=== PATIENT | female | born 1950 | race Caucasian/White ===

== ENCOUNTER 2018-08-15 06:21 | Observation (INO) | payer BC, SELFPAY ==
[2018-08-15] VITALS (11 sets, daily range): BP systolic 109–158; BP diastolic 50–84; PULSE 42–64; RESP 16–18; TEMP 36.6–37.1; O2SAT 95–98; BMI 25.6; BMI 25.2
--- NOTE | 2018-08-15 06:28 | EKG12_ITS ---
Test Reason : CP Blood Pressure : / mmHG Vent. Rate : 067 BPM Atrial Rate : 067 BPM P-R Int : 134 ms QRS Dur : 086 ms QT Int : 446 ms P-R-T Axes : 053 009 071 degrees QTc Int : 471 ms Normal sinus rhythm Cannot rule out Inferior infarct (cited on or before 11-SEP-2016), age undetermined Abnormal ECG Confirmed by JOSE ANGEL JOHNSON, YANDEL ([id number]), editorial assistant MICHAEL CROSS ([id number]) on 08/20/2018 1:23:53 PM Referred By: ZACHERY Confirmed By:YANDEL WALTER MD
--- NOTE | 2018-08-15 06:28 | RAD_ITS ---
STUDY: X-RAY CHEST REASON FOR EXAM: Female, 67 years old. Chest pain TECHNIQUE: AP portable COMPARISON: 09/11/2016 FINDINGS: The patient is status post median sternotomy and CABG. The lungs are clear and expanded. There is no demonstrated pleural abnormality. There is mild cardiac enlargement. Normal mediastinum and lois. Normal visualized pulmonary arteries. Normal visualized aortic arch and descending thoracic aorta. There are diffuse degenerative changes of the visualized thoracic spine. Normal visualized ribs, clavicles, and shoulders. There is no demonstrated abnormality of the visualized soft tissue structures of the upper abdomen. RAD/Chest PA and Lateral IMPRESSION: Negative x-ray examination of the chest. No interval change. Electronically Signed: Sebastien Childers, at 7:06 EDT Tel , Service support ,
--- NOTE | 2018-08-15 06:29 | ED.VIS.GEN ---
History of Present Illness Chief Complaint: Chest Pain Informant: Patient Narrative: Stated that at 9 AM yesterday she started having some discomfort described as a tightness in her chest and also the middle portions of her back. Patient stated that is been continuous. She is tried aspirin and Tylenol with moderate relief of symptoms. She does have history of coronary artery disease status post 2 stents. She also had a CABG remotely. Patient has not had cardiac evaluation in the last 3 years. Her last stress test was in 2016 and was normal. The patient had a heart cath around that time as well in [place] that showed no new blockages. The patient stated over the last couple years she has not had any follow-up and comes in today with the symptoms. - Past Medical History (1) Chest pain Status: Acute (2) Dyslipidemia Status: Chronic (3) Hypothyroidism Status: Chronic (4) Palpitations Status: Chronic (5) S/P CABG (coronary artery bypass graft) Status: Chronic Comment: s/p PCI (6) Tobacco abuse Status: Chronic Past Medical History - Allergies and Home Meds Allergies/Adverse Reactions: Allergies No Known Allergies Allergy (Verified 09/11/16 14:15) Primary Care Physician: Xavier Castillo DO [Primary Care Provider] - Prior records reviewed: Yes Surgical History: cholecystectomy, coronary bypass surgery, - - cabg and 3 stents since then. Smoking Status: Current every day smoker Alcohol: None Drugs: None - Family History Maternal Family History: Reports: Cancer, - - colon Paternal Family History: Reports: - - father with heart disease Sibling Family History: Reports: - - 2 brother with heart disease. Review of Systems General: Denies: Chills, Fever, Sweats Eyes: Denies: Visual changes - bilaterally, Diplopia ENT: Denies: Rhinorrhea, Sore throat Cardiovascular: Reports: Chest pain. Denies: Palpitations Respiratory: Denies: Dyspnea, Cough, Dyspnea on exertion Gastrointestinal: Denies: Abdominal pain, Nausea, Vomiting, Diarrhea, Melena, Hematochezia Genitourinary: Denies: Dysuria, Hematuria, Frequency Musculoskeletal: Reports: Back pain. Denies: Extremity Pain Skin: Denies: Rash, Wounds Neurological: Denies: Headache, Weakness, Numbness Physical Exam Vital Signs/Narrative: Vital Signs Temp Pulse Resp BP Pulse Ox 08/15/18 06:22 97.9 F 64 18 158/84 H 97 General: Well nourished, Well developed, No Acute Distress Head: Normocephalic, Atraumatic Eyes: Perrl, EOMI ENT: Moist mucous membranes, No rhinorrhea Neck: Supple, Nontender Cardiovascular: Regular rate, Regular rhythm, No murmurs Respiratory: No distress, CTA bilaterally, Chest nontender Abdomen: Soft, Nontender, Nondistended, Normal bowel sounds Back: Nontender, Normal Inspection Extremities: Nontender, No edema Skin: Normal color, No rash Neurological: Alert, Oriented x3, Cranial nerves II-XII grossly intact, Normal Strength, Normal Sensation Psychological: Normal affect, Normal Mood Diagnostic/Tx/Re-eval - Medical Decision Making EKG shows normal sinus rhythm at a rate of 67. No acute STEMI or ischemia. She Claudio took aspirin. Lab work and chest x-ray obtained. X-ray unremarkable. Lab work shows no acute abnormalities. Troponin is negative. Patient on reevaluation does not get nitroglycerin because her heart rate was low. Given a dose of morphine. She did consent to come in for further cardiac evaluation. She will likely need a stress test that she not have one in several years. I have a low suspicion for PE or dissection. ED Disposition - Plan for ED Patient: Diagnosis: Chest pain at rest Referrals: Xavier Castillo DO [Primary Care Provider] -
[2018-08-15 06:39] LABS: Absolute Lymphocyte Count 2.37 X10^3/ul (0.83-4.51); Absolute Neutrophil Count 4.6 X10^3/uL (2.0-7.7); Basophil# 0.05 X10^3/uL; Basophil% 0.6 % (0-1); Eosinophil# 0.21 X10^3/uL; Eosinophils% 2.6 % (0-5); Hematocrit 46.1 % (37-47); Hemoglobin 15.8 g/dl (12.0-15.0); Lymphocyte # 2.37 X10^3/ul (4.0); Lymphocyte % 29.9 % (19-41); Mean Corp Hgb Conc 34.3 g/gl (32-36); Mean Corpuscular Hgb 32.2 pg (27.0-32.0); Mean Corpuscular Volume 94.1 fL (81-99); Mean Platelet Vol. 10.6 fl (6.2-12.0); Monocyte# 0.72 X10^3/uL; Monocyte% 9.1 % (0-10); Neutrophil # 4.56 X10^3/uL (2.7-7.7); Neutrophil % 57.5 % (47-70); Platelet Count 318 K/mm3 (150-450); RBC Distribution Width CV 13.4 % (11.6-14.6); RBC Distribution Width SD 44.8 fl (35.1-43.9); White Blood Count 7.9 K/mm3 (4.4-11.0)
[2018-08-15 06:43] LABS: POSITIVE COUNT NO; POSITIVE DIFFERENTIAL NO; POSITIVE MORPHOLOGY NO
--- NOTE | 2018-08-15 06:44 | ED.RN ---
nitro not given, pts hr 54, bp 135/77, notified dr, to hold the nitro. still rating her pain an 8/10
[2018-08-15 07:04] LABS: Anion Gap 6 (5-15); BUN 16 mg/dL (7-18); Calcium,Total 9.6 mg/dL (8.5-10.1); Chloride 108 mmol/L (98-107); Creatinine, Serum 0.84 mg/dL (0.55-1.02); EST Glomerular Filtration Rate 71 mL/min (>60); Est Glom Filt Rate - Afr Amer 86 mL/min (>60); Estimated Creatinine Clearance 58.48 ml/min; Glucose 103 mg/dL (74-106); Potassium 4.3 mmol/L (3.5-5.1); Sodium Level 139 mmol/L (136-145)
[2018-08-15] MEDS: Morphine 2 MG/ML Syringe IV (07:36)
--- NOTE | 2018-08-15 08:04 | HP.PCM_ITS ---
Problem List (1) Chest pain at rest Status: Acute (2) Tobacco abuse Status: Chronic (3) Chest pain Status: Acute (4) Palpitations Status: Chronic (5) Hypothyroidism Status: Chronic (6) Dyslipidemia Status: Chronic (7) S/P CABG (coronary artery bypass graft) Status: Chronic Comment: s/p PCI History of Present Illness Date of Admission: 08/15/18 Chief Complaint: Chest pain The patient is a 67 year old F with history of coronary artery disease status post CABG in 2003 in [place] status post stent of occluded graft 2016 in [facility] for chest pain started yesterday morning. Patient describes chest pain as heaviness like heavy things sitting on the chest started on the interscapular area and went through in the front. Patient denies shortness of breath, palpitation, dizziness, near-syncope or syncope. Patient denies abdominal pain. Last time she was admitted in September 2015 and a stress test was abnormal. She did not want to stay here for cardiac cath therefore she was discharged and went to [facility] for PCI as per her wish. EKG shows normal sinus rhythm at 67 bpm no significant change from August 12, 2016. Echo in September 2012 shows EF 65%, LA mildly enlarged. Trivial MR, 1-2+ TR, RVSP 26 mmHg [] Past Medical History Past Medical History (Chronic Problems): Chronic Problems Tobacco abuse (Chronic) Palpitations (Chronic) Hypothyroidism (Chronic) Dyslipidemia (Chronic) S/P CABG (coronary artery bypass graft) (Chronic) s/p PCI Allergies No Known Allergies Allergy (Verified 09/11/16 14:15) Home Medications: Ambulatory Orders Medication Instructions Recorded Aspirin [Aspirin, Baby] 81 mg PO QHS 07/08/14 Carvedilol [Coreg (Beta Alba)] 6.25 mg PO BID 07/08/14 Levothyroxine [Synthroid] 112 mcg PO DAILY 07/08/14 Atorvastatin Calcium 80 mg PO QHS 08/15/18 Surgical History: cholecystectomy, coronary bypass surgery, - - cabg and 3 stents since then. Smoking Status: Current every day smoker Alcohol: None Drugs: None - *Family History Maternal History Items: Cancer, - - colon Paternal History Items: - - father with heart disease Sibling History Items: - - 2 brother with heart disease. Review of Systems Constitutional: Denies: Chills, Fever, Weight Change HEENT: Denies: Head Aches, Sinus Congestion, Sinus Drainage Cardiovascular: Reports: Chest Pain, Chest Pressure. Denies: Palpitations Respiratory: Denies: Cough, Shortness of breath at rest, Sputum production Gastrointestinal: Denies: Abdominal Pain, Nausea, Vomiting Genitourinary: Denies: Dysuria, Frequency, Hematuria, Hesitancy, Urgency Musculoskeletal: Denies: Joint Pain, Joint Tenderness Skin: Denies: Rash, Wounds Neurological: Denies: Numbness, Tingling, Focal weakness Psychiatric: Denies: Anxiety, Depression, Homicidal Ideations, Suicidal Ideations Hematologic/ Lymphatic: Denies: Easy Bruising, Easy Bleeding VTE Information - Inpt Only VTE Present on Admission: No VTE Mechan Device Prophylaxis: None VTE Pharm Prophylaxis ordered?: Yes Patient Problems: Active and Suspected Problems Chest pain at rest (Acute) - Physical Exam General: Alert, Oriented x3, Cooperative HEENT: Atraumatic, PERRLA, EOMI, Normocephalic Neck: Supple, No JVD, Negative Carotid Bruits Lungs: Clear to auscultation, Normal air movement, No rhonchi, No wheeze, No rales Cardiovascular: Regular rate, Regular Rhythm, Normal S1, Normal S2, No murmurs Abdomen: Bowel Sounds Present, Soft, Non Tender, Non-Distended Extremities: No edema, Capillary Refill Less than 3 Seconds Skin: No rashes, No breakdown Musculoskeletal: No Tenderness to Palpation of Joints or Extremities, Arthritic Changes Lymphatic: No Cervical, Supraclavicular, or Inguinal Adenopathy Neurological: Cranial nerves II-XII grossly intact, Deep Tendon Reflexes 2+/4 and Symmetrical, Neuro grossly intact, Motor Exam 5/5 strength throughout Psych/Mental Status: Normal Affect, Appropriate Vital Signs Temp Pulse Resp BP Pulse Ox 97.9 F 51 L 18 114/65 98 08/15/18 06:22 08/15/18 07:39 08/15/18 07:39 08/15/18 07:39 08/15/18 07:39 Oxygen Flow Rate (L/min) 2 Oxygen Delivery Method Nasal Cannula Weight: 153 lb 14.122 oz Body Mass Index (BMI) 25.6 Laboratory Tests Past 24 Hrs 08/15/18 08/15/18 06:20 06:20 WBC 7.9 RBC 4.90 Hgb 15.8 H Hct 46.1 MCV 94.1 MCH 32.2 H MCHC 34.3 RDW 13.4 RDW Differential 44.8 H Plt Count 318 MPV 10.6 Immature Gran % (Auto) 0.300 Neut % (Auto) 57.5 Lymph % (Auto) 29.9 Cotton % (Auto) 9.1 Eos % (Auto) 2.6 Baso % (Auto) 0.6 Absolute Neuts (auto) 4.6 Absolute Lymphs (auto) 2.37 Total Counted Not Reportable Sodium 139 Potassium 4.3 Chloride 108 H Carbon Dioxide 25.0 Anion Gap 6 BUN 16 Creatinine 0.84 Estim Creat Clear Calc 58.48 Est GFR (MDRD) Af Amer 86 Est GFR (MDRD) Non-Af 71 BUN/Creatinine Ratio 19.0 Glucose 103 Calcium 9.6 Troponin I < 0.015 Assessment/Plan All Active Problems Chest pain at rest (Acute) Chest pain (Acute) The patient is a 67 year old F with history of coronary artery disease status post CABG in 2003 in [place] status post stent of occluded graft 2016 in [facility] for chest pain started yesterday morning. Patient describes chest pain as heaviness like heavy things sitting on the chest started on the interscapular area and went through in the front. Patient denies shortness of breath, palpitation, dizziness, near-syncope or syncope. Patient denies abdominal pain. Last time she was admitted in September 2015 and a stress test was abnormal. She did not want to stay here for cardiac cath therefore she was discharged and went to [facility] for PCI as per her wish. EKG shows normal sinus rhythm at 67 bpm no significant change from August 12, 2016. Chest x-ray shows no acute change. Echo in September 2012 shows EF 65%, LA mildly enlarged. Trivial MR, 1-2+ TR, RVSP 26 mmHg. 1. Atypical change sprain possible unstable angina: Patient is being admitted in PCU. Troponin enzyme is negative. Serial troponin enzymes. Lexiscan nuclear stress test tomorrow morning. Patient still has chest pain in the ER therefore nursing is is told to give sublingual nitro. Patient received morphine 2 mg IV x1. Start on nitro ointment 1% every 6 hourly and discontinue on chest pain is resolves or if patient gets hypotensive or headache. Continue aspirin, Coreg, atorvastatin and other home medications. Fasting provider tomorrow a.m. 2. Coronary artery disease status post CABG in 2003 status post recent stenting 2016: 3. Hypothyroidism: Continue home levothyroxine. TSH and free T4 ordered. Other chronic comorbidities include dyslipidemia, chronic tobacco use: Smoking cessation advised. Due to progress: On Lovenox 40 neurosecretory. Laboratory Results 08/15/18 06:20: WBC 7.9, RBC 4.90, Hgb 15.8 H, Hct 46.1, MCV 94.1, MCH 32.2 H, MCHC 34.3, RDW 13.4, RDW Differential 44.8 H, Plt Count 318, MPV 10.6, Immature Gran % (Auto) 0.300, Neut % (Auto) 57.5, Lymph % (Auto) 29.9, Cotton % (Auto) 9.1, Eos % (Auto) 2.6, Baso % (Auto) 0.6, Absolute Neuts (auto) 4.6, Absolute Lymphs (auto) 2.37, Total Counted Not Reportable 08/15/18 06:20: Sodium 139, Potassium 4.3, Chloride 108 H, Carbon Dioxide 25.0, Anion Gap 6, BUN 16, Creatinine 0.84, Estim Creat Clear Calc 58.48, Est GFR (MDRD) Af Amer 86, Est GFR (MDRD) Non-Af 71, BUN/Creatinine Ratio 19.0, Glucose 103, Calcium 9.6, Troponin I < 0.015 Clinical Impression(s) from Imaging Studies Chest X-Ray 08/15/18 06:28 IMPRESSION: Negative x-ray examination of the chest. No interval change. Code Visit OBSV E&M: 57341 Initial observation care L3
--- NOTE | 2018-08-15 08:23 | EKG12_ITS ---
Test Reason : CP ADMIT Blood Pressure : / mmHG Vent. Rate : 051 BPM Atrial Rate : 051 BPM P-R Int : 148 ms QRS Dur : 092 ms QT Int : 470 ms P-R-T Axes : 034 003 082 degrees QTc Int : 433 ms Sinus bradycardia Possible Inferior infarct , age undetermined Abnormal ECG Confirmed by JOSE ANGEL JOHNSON, YANDEL ([id number]), editor managing newspaper MICHAEL CROSS ([id number]) on 08/20/2018 1:52:49 PM Referred By: NELLY Confirmed By:YANDEL WALTER MD
[2018-08-15 08:53] LABS: Thyroid Stim Hormone (TSH) 6.02 uIU/mL (0.358-3.74)
[2018-08-15] MEDS: 0.9% Normal Saline 1,000 ML 100 ML IV (10:03)
[2018-08-15] MEDS: Aspirin E.C. 325 MG Tablet PO (10:03)
[2018-08-15] MEDS: oxyCODONE 5 MG Tablet PO ×2 (10:04→18:06)
--- NOTE | 2018-08-15 14:37 | STRESSREP ---
Stress Test Report Date: 08/15/2018 Procedure: Pharmacologic stress nuclear imaging study Indications: Chest pain Consent: Per the patient Procedure: The patient underwent pharmacologic (Regadenoson) evaluation with a peak heart rate of 72 beats per minute (47 %predicted maximal heart rate) and a peak blood pressure of 128/60 mmHg. The baseline ECG demonstrated sinus bradycardia. EKG during lexiscan infusion revealed normal sinus rhythm with no significant ST-T changes. EKG post infusion revealed no significant ischemic changes [There were no cardiac dysrhythmias pretest, during pharmacologic infusion, or recovery]. [There was no complaint of chest discomfort during pharmacologic infusion or recovery]. The examination was discontinued secondary to completion of protocol. Impression: 1. Lexiscan stress test test is negative for Lexiscan infusion induced EKG changes of ischemia. 2. Lexiscan stress test test is negative for Lexiscan infusion induced chest pain. 3. Results of the nuclear portion of the test is as below Myocardial perfusion imaging study: Technique: The patient was injected with 11.9 millicuries of technetium 99m Cardiolite and subsequently rest SPECT Cardiolite nuclear imaging was obtained in the horizontal long, vertical long, and short axis views. The patient underwent pharmacologic (Regadenoson) evaluation. Please see above for details. The patient was injected with 33.6 millicuries of technetium 99m Cardiolite and subsequently stress SPECT Cardiolite nuclear imaging was obtained in the horizontal long, vertical long, and short axis views. A gated Cardiolite study at peak stress was obtained. Interpretation: Rest and stress SPECT Cardiolite nuclear imaging status post realignment, normalization, and attenuation correction demonstrate overall normal myocardial radioisotope uptake in the rest and stress images. Gated images reveal no significant regional wall motion abnormalities. The reported LVEF is greater than 70 %. Impression: 1. There is no evidence of significant ischemia or infarction. 2. Estimated ejection fraction is greater than 70%. This note was generated with [employer]arp.ation software. It may contain incorrect words, spelling, and punctuation that were not noted in checking the note before signing.
[2018-08-15] MEDS: Atorvastatin Calcium 80 MG Tablet PO (21:21)
[2018-08-16] MEDS: oxyCODONE 5 MG Tablet PO (02:09)
[2018-08-16 03:00] VITALS: BP 106/52; PULSE 46; PULSE 50; RESP 16; TEMP 36.7; O2SAT 96
[2018-08-16] MEDS: Levothyroxine 112 MCG Tablet PO (05:56)
[2018-08-16 06:56] LABS: Cholesterol 167 mg/dL (200); High Density Lipoprotein 44 mg/dL; Magnesium 2.1 mg/dL (1.6-2.6); Triglycerides 232 mg/dL; Very Low Density Lipoprotein 46 mg/dL (5-40)
[2018-08-16 07:16] VITALS: PULSE 41
[2018-08-16 09:00] VITALS: BP 135/67; PULSE 44; RESP 16; TEMP 36.6; O2SAT 98
--- NOTE | 2018-08-16 09:19 | DCINST_ITS ---
- Discharge Diagnoses Current Active Problems: Current Active and Chronic Problems Chest pain at rest (Acute) You will use the following diet at home:: Cardiac Your food should be the consistency of: Regular Discharge Activity: Return to Normal Activity Weight Bearing Status: Weight bearing as tolerated Call your doctor if you observe: Fever of 101 or Higher, Coldness, Increased Pain, Inability to urinate, Inability to have a bowel movement, Shortness of breath, Dizziness, Swelling in the ankles, Chest pain, Increased palpitations (irregular heartbeat), Calf discomfort Allergies/Adverse Reactions: Allergies No Known Allergies Allergy (Verified 09/11/16 14:15) Medications to take at Discharge Aspirin [Aspirin, Baby] 81 mg PO QHS 07/08/14 Atorvastatin Calcium 80 mg PO QHS 08/15/18 Carvedilol [Coreg (Beta Alba)] 3.125 mg PO BID #0 08/16/18 Levothyroxine [Synthroid] 125 mcg PO DAILY #30 tab 08/16/18 The following prescriptions were given: Levothyroxine [Synthroid] 125 mcg PO DAILY #30 tab Transmission Status: Received by [facility]/pharmacy #[id number] Primary Care Physician: Xavier Castillo DO [Primary Care Provider] - Please follow up with your Primary Care Physician in: in 2 weeks to repeat Thyroid function in 4 weeks Test Results: Test results from this visit will be discussed in further detail at your follow- up appointment, if applicable. Please Follow Up With: Santiago Aguiar MD When: in 4-6 weeks
--- NOTE | 2018-08-16 09:21 | DS.PCM_ITS ---
Discharge Date and Diagnosis Date of Admission: 08/15/18 Date of Discharge: 08/16/18 - Primary Discharge Diagnosis Active and Suspected Problems Chest pain at rest (Acute) - Secondary Discharge Diagnosis Chronic Problems Tobacco abuse (Chronic) Palpitations (Chronic) Hypothyroidism (Chronic) Dyslipidemia (Chronic) S/P CABG (coronary artery bypass graft) (Chronic) s/p PCI Hospital Course and Treatment Summary of Care Provided: [] The patient is a 67 year old F with history of coronary artery disease status post CABG in 2003 in [place] status post stent of occluded graft 2016 in [facility] for chest pain started, day before yesterday. Patient denies shortness of breath, palpitation, dizziness, near-syncope or syncope. EKG shows normal sinus rhythm at 67 bpm no significant change from August 12, 2016. Chest x-ray shows no acute change. Echo in September 2012 shows EF 65%, LA mildly enlarged. Trivial MR, 1-2+ TR, RVSP 26 mmHg. 1. Atypical chest pain, possible muscle strain; acute coronary syndrome ruled out: Patient was admitted on PCU. Serial troponin enzymes negative. Lexiscan extra stress test was negative for acute ischemia. Patient chest pain resolved. Fasting profile shows triglyceride 232, LDL 77, HDL 44. The patient is on atorvastatin 80 mg daily at bedtime. 2. Coronary artery disease status post CABG in 2003 status post recent stenting 2016: Home medications continued. On baby aspirin, carvedilol and atorvastatin. 3. Sinus bradycardia probably secondary to hypothyroidism: Patient heart rate was in 40s. Coreg decreased to 3.125 mg. This probably secondary to hypothyroidism as TSH was found high. 4. Hypothyroidism: TSH was high 6.02, free T4 1.3. Patient was on 112 mcg levothyroxine which is increased to 125 mcg thyroxine. Other chronic comorbidities include dyslipidemia, chronic tobacco use: Smoking cessation advised. Discharge medication reconciliation done. Discharge follow-up instructions completed. Discharge process discussed with the patient and all questions were answered to patient's satisfaction. Prescription for levothyroxine 125 mcg daily was sent to patient's pharmacy. Result of thyroid test, labs, stress test were discussed with the patient. Total time spent, exact 35 minutes on discharge meds reconciliation, examination, review of imaging and blood test and discussion with the patient on follow-up instructions. Laboratory Results 08/16/18 05:25: Magnesium 2.1, Triglycerides 232 H, Cholesterol 167, LDL Cholesterol 77, VLDL Cholesterol 46 H, HDL Cholesterol 44 - Physical Exam Vital Signs Temp Pulse Resp BP Pulse Ox 98 F 44 L 16 135/67 H 98 08/16/18 09:00 08/16/18 09:00 08/16/18 09:00 08/16/18 09:00 08/16/18 09:00 Oxygen Flow Rate (L/min) 2 Oxygen Delivery Method Room Air Weight: 151 lb 14.376 oz Body Mass Index (BMI) 25.2 Intake and Output for Last 24 Hours 08/14/18 08/15/18 08/16/18 23:59 23:59 23:59 Intake Total 240 / 240 120 / 120 Balance 240 / 240 120 / 120 Laboratory Tests Past 24 Hrs 08/15/18 08/15/18 08/16/18 09:44 12:45 05:25 Magnesium 2.1 Troponin I < 0.015 < 0.015 Triglycerides 232 H Cholesterol 167 LDL Cholesterol 77 VLDL Cholesterol 46 H HDL Cholesterol 44 Discharge Activity: Return to Normal Activity Weight Bearing Status: Weight bearing as tolerated Call your doctor if you observe: Fever of 101 or Higher, Coldness, Increased Pain, Inability to urinate, Inability to have a bowel movement, Shortness of breath, Dizziness, Swelling in the ankles, Chest pain, Increased palpitations (irregular heartbeat), Calf discomfort Home Medications: Medications to take at Discharge Aspirin [Aspirin, Baby] 81 mg PO QHS 07/08/14 Atorvastatin Calcium 80 mg PO QHS 08/15/18 Carvedilol [Coreg (Beta Alba)] 3.125 mg PO BID #0 08/16/18 Levothyroxine [Synthroid] 125 mcg PO DAILY #30 tab 08/16/18 Following Prescrptions Were Given to Patient: Levothyroxine [Synthroid] 125 mcg PO DAILY #30 tab Transmission Status: Received by [facility]/pharmacy #[id number] Primary Care Physician: Xavier Castillo DO [Primary Care Provider] - Please follow up with your Primary Care Physician in: in 2 weeks to repeat Thyroid function in 4 weeks Please Follow Up With: Santiago Aguiar MD When: in 4-6 weeks Medical Necessity - Tobacco Use Smoking Status: Current every day smoker Meaningful Use Info Meaningful Use Diagnoses (Choose all that apply): None applicable Code Visit OBSV E&M: 68265 Observation care discharge
[2018-08-16] MEDS: Levothyroxine 25 MCG TABLET PO (10:38)
== END 2018-08-16 09:20 | disposition home or self-care (01) ==
LOC: ED 07:14 → PCU 07:31
PROVIDERS: Admitting Provider Internal Medicine; Emergency Provider Emergency Medicine; Family Provider Preventive Medicine Occupational Medicine; PCP Preventive Medicine Occupational Medicine; Visit Provider Internal Medicine
DX: R07.89 Other chest pain (principal); I25.10 Atherosclerotic heart disease of native coronary artery without angina pectoris; Z95.1 Presence of aortocoronary bypass graft; E78.5 Hyperlipidemia, unspecified; E03.9 Hypothyroidism, unspecified; R00.2 Palpitations; Z79.82 Long term (current) use of aspirin; Z79.899 Other long term (current) drug therapy; F17.210 Nicotine dependence, cigarettes, uncomplicated
CPT/HCPCS: 36415; 71046; 78452; 80048; 80061; 83735; 84439; 84443; 84484; 85025; 93005; 93017; 96361; 96374; 99218; 99285; 99406; A9500; J7030; A4216; G0378; J2785

== ENCOUNTER 2022-03-30 21:06 | Emergency (ER) | payer BC, SELFPAY ==
[2022-03-30 21:07] VITALS: BP 143/10; PULSE 64; RESP 16; TEMP 36.6; O2SAT 100; BMI 25.1
--- NOTE | 2022-03-30 21:30 | RAD_ITS ---
EXAM: XR CHEST, 1 VIEW CLINICAL INDICATION: chest pain TECHNIQUE: Frontal view of the chest. This report was created using [employer] report generation technology. COMPARISON: 08/15/2018 FINDINGS: LUNGS AND PLEURAL SPACES: Unremarkable. No consolidation or edema. No pneumothorax. No effusion. HEART: See below. MEDIASTINUM: Central airways and mediastinal contour are unremarkable. BONES/JOINTS: There are median sternotomy wires present and clips from a CABG. SOFT TISSUES: Unremarkable. RAD/Chest 1 View (Portable) IMPRESSION: No acute findings in the chest. Electronically Signed: Zane Hensley MD at 22:07 EST ,
[2022-03-30] MEDS: Aspirin 81 MG TAB.CHEW 324 MG PO (22:21)
[2022-03-30 22:29] LABS: Absolute Lymphocyte Count 1.93 X10^3/uL (0.83-4.51); Absolute Neutrophil Count 6.3 X10^3/uL (2.0-7.7); Basophil% 1.1 % (0-1); Eosinophil# 0.19 X10^3/uL; Eosinophils% 2.1 % (0-5); Hemoglobin 14.2 g/dL (12.0-15.0); Lymphocyte # 1.93 X10^3/ul (0.83-4.51); Lymphocyte % 20.9 % (19-41); Mean Corp Hgb Conc 33.8 g/dL (32-36); Mean Corpuscular Hgb 32.3 pg (27.0-32.0); Mean Corpuscular Volume 95.7 fL (81-99); Monocyte# 0.68 X10^3/uL; Monocyte% 7.4 % (0-10); NRBC Flagged by Analyzer 0 % (0-5); Neutrophil # 6.28 X10^3/uL (2.7-7.7); Neutrophil % 68.1 % (47-70); Platelet Count 324 K/mm3 (150-450); RBC Distribution Width SD 45.3 fl (35.1-43.9); Red Blood Count 4.39 M/mm3 (4.2-5.4); White Blood Count 9.2 K/mm3 (4.4-11.0)
[2022-03-30 22:44] LABS: Prothrombin Time (Protime)PT. 12.9 SECONDS (11.7-14.9)
[2022-03-30 22:46] LABS: Anion Gap 5 (5-15); BUN 19 mg/dL (7-18); Calcium,Total 9.3 mg/dL (8.5-10.1); Chloride 112 mmol/L (98-107); EST Glomerular Filtration Rate 87 mL/min (>60); Est Glom Filt Rate - Afr Amer 105 mL/min (>60); Estimated Creatinine Clearance 46.43 ml/min; Glucose 101 mg/dL (74-106); Potassium 4.1 mmol/L (3.5-5.1); Sodium Level 141 mmol/L (136-145); Troponin-I HS 7 pg/mL (3.0-54.0)
--- NOTE | 2022-03-30 23:08 | EDS_ITS ---
HPI History of Present Illness Chief Complaint: Chest Pain Informant: patient Onset/Context/Timing Onset: Today and Hours (2) Activity at onset: sudden Timing: Continuous Quality: Positive for Pressure Location: Left Chest Worsened By: Nothing Relieved By: Nothing Associated Symptoms: Negative for Nausea, Vomiting, Diaphoresis, Dyspnea, Cough, Fever, Lightheadedness, Acid Reflux or Palpitations Narrative Narrative: Patient with chest pain that began approximate 2 hours prior to arrival. Patient describes her pain as a pressure. Patient states it is over the left side of her chest. Patient states nothing makes it better nothing makes it worse. Patient denies any nausea or vomiting. Patient denies any diaphoresis. Patient denies any shortness of breath or cough. Patient denies any lightheadedness or dizziness. Patient denies any palpitations. Patient was a smoker. Patient has a history of coronary artery disease. CVD Risk Factors: Positive for Family History 1' </=55 and Smoking PE Risk Factors: Negative for Recent Travel/Surgery, Recent Immobilization, Prior DVT or PE, Cancer or OCP + Smoking + >/=35 PFSH PFSH Home Medications aspirin 81 mg chewable tablet 81 mg PO QHS heart health 07/08/14 [History Last Taken 09/25/15] atorvastatin 80 mg tablet 80 mg PO QHS cholesterol 08/15/18 [History Last Taken Unknown] carvedilol 6.25 mg tablet 3.125 mg PO BID ##0 08/16/18 [Rx Last Taken 09/25/15] levothyroxine 125 mcg tablet 125 mcg PO DAILY #30 tabs 08/16/18 [Rx Last Taken Unknown] clopidogrel 75 mg tablet 75 mg PO DAILY 03/30/22 [History Last Taken Unknown] isosorbide mononitrate 30 mg tablet,extended release 24 hr 30 mg PO DAILY 03/30/22 [History Last Taken Unknown] Allergy/AdvReac Type Severity Reaction Status Date / Time No Known Allergies Allergy Verified 03/30/22 21:11 Surgical History History of cardiac radiofrequency ablation History of heart artery stent Hx of CABG Social History Smoking Status: Current every day smoker tobacco type: cigarettes ROS ROS ED Constitutional Constitutional ED: Denies chills or fever(s) Eyes Eyes: Denies blurry vision or change in vision ENT ENT ED: Denies rhinorrhea or sore throat Cardiovascular Cardiovascular: Reports chest pain; Denies palpitations Respiratory/Chest Respiratory/Chest: Reports dyspnea; Denies cough Gastrointestinal Gastrointestinal: Reports nausea; Denies abdominal pain or vomiting Genitourinary Genitourinary ED: Denies dysuria or hematuria Musculoskeletal Musculoskeletal: Reports back pain and neck pain Integumentary Denies abscess or rash Neurologic Neurologic: Reports headache(s); Denies weakness Allergic/Immunologic Allergic/Immunologic ED: Denies mouth swelling or urticaria EXAM Physical Exam Const Vital Signs: 03/30/22 21:07 03/30/22 22:11 03/30/22 22:22 Temperature 98 F Temperature Source Oral Pulse Rate 64 Respiratory Rate 16 Respiratory Effort Normal Non-Labored Blood Pressure 143/10 H Blood Pressure Mean 54 Pulse Ox 100 Oxygen Delivery Method Room Air Room Air Positive well nourished and well developed General Appearance ED: well developed and NAD HEENT normocephalic and atraumatic Eyes PERRL and EOMs intact bilaterally Neck supple and no JVD Chest Wall palpation of chest normal Resp normal respiratory effort and clear to auscultation bilaterally Effort and Inspection: Negative for respiratory distress Cardio regular rate, regular rhythm and no murmurs GI normal to inspection, nondistended, normoactive bowel sounds, soft to palpation, non-tender and non-distended Extremity normal to inspection General Extremety ED: Negative for edema or tenderness General Extremity: Negative for edema Neuro oriented x3, CN's II-XII intact bilaterally and no sensory deficits noted Sensorium / Orientation: awake and alert Motor Exam: strength 5/5 throughout Psych mental status grossly normal Heart Score History: Slightly/Non-Suspicious ECG: Nonspecific Repolarization Age: >/= 65 years Risk Factors: >/= 3 Risk Factors or History of CAD Troponin: </= Normal Limit Score: 5 MDM MDM MDM Narrative Medical decision making narrative: Differential diagnosis includes cardiac ischemia, cardiac dysrhythmia, pneumonia, pneumothorax, musculoskeletal chest pain, COPD, and congestive heart failure. Other than the patient's age, patient is PERC negative. I do not feel a D-dimer is necessary at this time. EKG will be obtained to assess for cardiac dysrhythmia and cardiac ischemia. Chest x-ray will be obtained to assess for pneumonia, pneumothorax, and congestive heart failure. CBC will be obtained to assess for leukocytosis and anemia. PT was INR be obtained to assess for coagulopathy. Basic metabolic profile will be obtained to assess for renal function and electrolyte abnormality. High-sensitivity troponin will be obtained to assess for cardiac ischemia. Since the patient's symptoms only started 2 hours prior to arrival, 82-hour repeat high-sensitivity troponin will be obtained to assess for ongoing cardiac ischemia. Lab Data Attestation: I reviewed the patient's lab results. Lab results narrative: CBC was reviewed and was within normal limits. PT was INR was reviewed and was within normal limits. Basic metabolic profile was reviewed and was within normal limits. Initial high-sensitivity troponin was reviewed and was normal at 7. 2-hour repeat high-sensitivity troponin was also normal at 7. Labs: Laboratory Results - last 24 hr 03/30/22 03/30/22 03/30/22 22:17 22:17 22:17 WBC 9.2 RBC 4.39 Hgb 14.2 Hct 42.0 MCV 95.7 MCH 32.3 H MCHC 33.8 RDW Std Deviation 45.3 H RDW Coeff of Angela 13.0 Plt Count 324 MPV 10.0 Immature Gran % (Auto) 0.400 Neut % (Auto) 68.1 Lymph % (Auto) 20.9 Alfalfa % (Auto) 7.4 Eos % (Auto) 2.1 Baso % (Auto) 1.1 H Absolute Neuts (auto) 6.3 Absolute Lymphs (auto) 1.93 Nucleated RBC % 0 PT 12.9 INR 1.0 Sodium 141 Potassium 4.1 Chloride 112 H Carbon Dioxide 24.0 Anion Gap 5 BUN 19 H Creatinine 0.70 Estim Creat Clear Calc 46.43 Est GFR (MDRD) Af Amer 105 Est GFR (MDRD) Non-Af 87 BUN/Creatinine Ratio 27.0 H Glucose 101 Calcium 9.3 Troponin I High Sens 7 03/31/22 00:19 WBC RBC Hgb Hct MCV MCH MCHC RDW Std Deviation RDW Coeff of Angela Plt Count MPV Immature Gran % (Auto) Neut % (Auto) Lymph % (Auto) Alfalfa % (Auto) Eos % (Auto) Baso % (Auto) Absolute Neuts (auto) Absolute Lymphs (auto) Nucleated RBC % PT INR Sodium Potassium Chloride Carbon Dioxide Anion Gap BUN Creatinine Estim Creat Clear Calc Est GFR (MDRD) Af Amer Est GFR (MDRD) Non-Af BUN/Creatinine Ratio Glucose Calcium Troponin I High Sens 7 Radiography Chest X-Ray - ED: 1 View, Read by ED Physician, Read by Radiologist and No Acute Disease Diagnostic Testing: Clinical Impression(s) from Imaging Studies Chest X-Ray 03/30/22 21:30 IMPRESSION: No acute findings in the chest. Electronically Signed: Zane Hensley MD at 22:07 EST , Portable 1 view chest x-ray was obtained. On my independent interpretation, lung bear are clear. There is normal cardiac silhouette. Bony thorax is normal. There is no acute process noted. Radiologist also interpreted the x- ray and agrees. EKG Initial EKG: Attestation: I personally reviewed and interpreted this EKG as follows: Interpretation: Sinus Rhythm (60) and Non-Specific ST Changes Prior EKG tracings: available for review Prior: Unchanged (08/15/2018) Treatment and Re-Evaluation Narrative: Patient was given aspirin here. Patient was also given a dose of morphine for her neck and back pain. Patient is feeling better on reevaluation. Patient has a HEART score of 5. This is mainly due to the patient's age and history of coronary artery disease along with nonspecific ST-T wave changes on her EKG. Patient's history is not suggestive of coronary artery disease. Patient states her last stress test was a stress echocardiogram 6 months ago and she states that that was normal. Patient had 2 normal high-sensitivity troponins. I feel the patient can be safely discharged home. Patient was instructed to follow-up with her primary care physician and psychologist private practice in 5 to 7 days. Patient was instructed return if worse in any way. Patient understood and was agreeable with the plan. All questions were answered. Discharge Plan Triage Chief Complaint: Chest Pain ED Provider: Gregor Boss Dx/Rx/DC Orders Clinical Impression: Chest pain, Tobacco abuse Instructions: ED Chest Pain, Uncertain Cause Prescriptions: No Action aspirin 81 MG tablet,chewable 81 mg PO QHS atorvastatin 80 MG tablet 80 mg PO QHS levothyroxine 125 MCG tablet 125 mcg PO DAILY Qty: 30 0RF carvedilol 6.25 MG tablet 3.125 mg PO BID Qty: 0 0RF Rx Instructions: Hold if heart rate is less than 60/min isosorbide mononitrate 30 mg tablet extended release 24 hr 30 mg PO DAILY Label Comments: TAKE 1 TABLET BY MOUTH EVERY MORNING clopidogrel 75 mg tablet 75 mg PO DAILY Label Comments: TAKE 1 TABLET BY MOUTH EVERY DAY Primary Care Provider: Xavier Castillo Referrals: Xavier Castillo DO [Primary Care Provider] - 5-7 Days Disposition Disposition: Home, Self Care
[2022-03-31 00:31] VITALS: BP 113/73; RESP 12; O2SAT 98
[2022-03-31 00:42] LABS: Troponin-I HS (w/2H Reflex) 7 pg/mL (3.0-54.0)
[2022-03-31] MEDS: Morphine 4 MG/ML Syringe IV (00:46)
[2022-03-31] MEDS: Ondansetron 4 MG/2 ML Vial IV (00:46)
[2022-03-31 01:01] VITALS: BP 125/55; PULSE 49; RESP 13; O2SAT 96
[2022-03-31 02:23] LABS: Reflex Troponin-HS? (from REC) Y
== END 2022-03-31 01:30 | disposition home or self-care (01) ==
PROVIDERS: Emergency Provider Emergency Medicine; PCP Preventive Medicine Occupational Medicine; Visit Provider Emergency Medicine
DX: R07.9 Chest pain, unspecified (principal); I25.10 Atherosclerotic heart disease of native coronary artery without angina pectoris; F17.210 Nicotine dependence, cigarettes, uncomplicated
CPT/HCPCS: 71045; 80048; 84484; 85025; 85610; 93005; 96374; 96375; 99284; A4216; J2405

== ENCOUNTER 2022-07-02 11:56 | Emergency (ER) | payer BC, SELFPAY ==
[2022-07-02 11:57] VITALS: BP 112/61; PULSE 51; RESP 16; TEMP 36.6; O2SAT 99; BMI 25.6
--- NOTE | 2022-07-02 12:11 | EX.ED.DYSGE1 ---
HPI <TRISTON Nazario - Last Filed: 07/02/22 14:06> History of Present Illness Chief Complaint: Dizziness Narrative Narrative: Patient is a 71-year-old female with history of CAD, CABG, tobacco use, cholesterol who presents to the emergency department with 1 week of worsening dizziness. Patient states the dizziness is worse when she is walking and active. When she is sitting resting, she is asymptomatic. She denies any chest pain or shortness of breath. [facility], she discussed her symptoms, they referred her here for more cardiac work-up. Patient states she does have a cough however is no more than usual. Patient denies any other illnesses. Last echocardiogram was 2 to 3 months ago and was normal. Last stress test in our system was in 2019 which was normal. PFSH <TRISTON Nazario - Last Filed: 07/02/22 14:06> [facility] Medical History (Updated 07/02/22 @ 14:06 by TRISTON Nazario) DVT (deep venous thrombosis) Home Medications aspirin 81 mg chewable tablet 81 mg PO QHS heart health 07/08/14 [History Last Taken 09/25/15] atorvastatin 80 mg tablet 80 mg PO QHS cholesterol 08/15/18 [History Last Taken Unknown] carvedilol 6.25 mg tablet 3.125 mg PO BID ##0 08/16/18 [Rx Last Taken 09/25/15] levothyroxine 125 mcg tablet 125 mcg PO DAILY #30 tabs 08/16/18 [Rx Last Taken Unknown] clopidogrel 75 mg tablet 75 mg PO DAILY 03/30/22 [History Last Taken Unknown] isosorbide mononitrate 30 mg tablet,extended release 24 hr 30 mg PO DAILY 03/30/22 [History Last Taken Unknown] Allergy/AdvReac Type Severity Reaction Status Date / Time No Known Allergies Allergy Verified 07/02/22 11:58 Surgical History (Updated 07/02/22 @ 12:11 by Evette Romero) H/O: hysterectomy History of cardiac radiofrequency ablation History of coronary rotational ablation History of heart artery stent Hx of CABG S/P cholecystectomy Social History Smoking Status: Current every day smoker tobacco type: cigarettes ROS <TRISTON Nazario - Last Filed: 07/02/22 14:06> ROS ED ROS Narrative Constitutional: Negative for fever, chills, weight loss, weakness Eyes: Negative for vision loss, vision change, double vision ENT: Negative for any sore throat, ear pain, congestion Cardiovascular: Negative for any chest pain, tightness, palpitations Respiratory: Negative for any cough, sputum production, hemoptysis, dyspnea, dyspnea on exertion, orthopnea Gastrointestinal: Negative for any abdominal pain, nausea, vomiting, diarrhea, constipation, blood in stool, blood in vomit : Negative for any urinary frequency, dysuria, retention, blood in urine Muscle skeletal: Negative for any muscle joint pain, stiffness, myalgias, arthralgias, neck pain, back pain Neurological: Negative for any headache, syncope, numbness or tingling. Positive with dizziness on exertion Skin: Negative for any rashes, lumps, itching, abrasions, lacerations Psychiatric: Negative for any depression, anxiety, stress, suicidal ideation, homicidal ideation Hematologic: Negative for any easy bruising, excessive bruising, easy bleeding Allergies: Negative for any eczema, hives, rash EXAM <TRISTON Nazario - Last Filed: 07/02/22 14:06> Physical Exam Narrative Exam Narrative: Vital signs reviewed. HEET: Head normocephalic atraumatic, TMs clear bilaterally. Posterior pharynx is clear, moist mucous membranes. Nares clear bilaterally. Neck: Supple with no lymphadenopathy or tenderness. No signs of meningismus, negative jolt sign. Cardiac: Bradycardic rhythm no murmurs gallops or rubs, equal peripheral pulses bilaterally. Respiratory: Lungs clear to auscultation bilaterally diminished in the bases. No chest tenderness. Abdomen: Soft, nontender, nondistended. No abdominal bruit or pulsatile masses. No hepatosplenomegaly Extremities: No peripheral edema, no signs of gross trauma or deformity. Active full range of motion of all extremities. Neuro: Cranial nerves II through XII intact, no focal neurological deficits. Skin: Clean dry and intact with no rash, purpura, petechiae, vesicles or pustules. Backs/flank: No CVA tenderness, no midline spinal tenderness, no deformity. Psych: Normal mood and affect. No SI, HI or acute psychosis. Const Vital Signs: 07/02/22 11:57 07/02/22 12:12 07/02/22 12:13 Temperature 97.8 F Temperature Source Temporal Pulse Rate 51 L Pulse Rate [Lying] 55 L Pulse Rate [Sitting (for 1 minute prior to obtaining)] 54 L Pulse Rate [Standing (for 1 minute prior to obtaining)] 59 L Respiratory Rate 16 Respiratory Effort Normal Non-Labored Blood Pressure 112/61 Blood Pressure [Lying] 133/69 H Blood Pressure [Sitting (for 1 minute prior to obtaining)] 148/119 H Blood Pressure [Standing (for 1 minute prior to obtaining)] 116/65 Blood Pressure Mean 78 Blood Pressure Mean [Lying] 90 Blood Pressure Mean [Sitting (for 1 minute prior to obtaining)] 128 Blood Pressure Mean [Standing (for 1 minute prior to obtaining)] 82 Pulse Ox 99 Oxygen Delivery Method Room Air 07/02/22 13:35 Temperature Temperature Source Pulse Rate 53 L Pulse Rate [Lying] Pulse Rate [Sitting (for 1 minute prior to obtaining)] Pulse Rate [Standing (for 1 minute prior to obtaining)] Respiratory Rate 16 Respiratory Effort Blood Pressure 116/46 L Blood Pressure [Lying] Blood Pressure [Sitting (for 1 minute prior to obtaining)] Blood Pressure [Standing (for 1 minute prior to obtaining)] Blood Pressure Mean 69 Blood Pressure Mean [Lying] Blood Pressure Mean [Sitting (for 1 minute prior to obtaining)] Blood Pressure Mean [Standing (for 1 minute prior to obtaining)] Pulse Ox 98 Oxygen Delivery Method Room Air Positive well nourished and well developed General Appearance ED: well developed <Dr. Cristino Levy, DO - Last Filed: 07/02/22 15:57> Physical Exam Const Vital Signs: 07/02/22 11:57 07/02/22 12:12 07/02/22 12:13 Temperature 97.8 F Temperature Source Temporal Pulse Rate 51 L Pulse Rate [Lying] 55 L Pulse Rate [Sitting (for 1 minute prior to obtaining)] 54 L Pulse Rate [Standing (for 1 minute prior to obtaining)] 59 L Respiratory Rate 16 Respiratory Effort Normal Non-Labored Blood Pressure 112/61 Blood Pressure [Lying] 133/69 H Blood Pressure [Sitting (for 1 minute prior to obtaining)] 148/119 H Blood Pressure [Standing (for 1 minute prior to obtaining)] 116/65 Blood Pressure Mean 78 Blood Pressure Mean [Lying] 90 Blood Pressure Mean [Sitting (for 1 minute prior to obtaining)] 128 Blood Pressure Mean [Standing (for 1 minute prior to obtaining)] 82 Pulse Ox 99 Oxygen Delivery Method Room Air 07/02/22 13:35 Temperature Temperature Source Pulse Rate 53 L Pulse Rate [Lying] Pulse Rate [Sitting (for 1 minute prior to obtaining)] Pulse Rate [Standing (for 1 minute prior to obtaining)] Respiratory Rate 16 Respiratory Effort Blood Pressure 116/46 L Blood Pressure [Lying] Blood Pressure [Sitting (for 1 minute prior to obtaining)] Blood Pressure [Standing (for 1 minute prior to obtaining)] Blood Pressure Mean 69 Blood Pressure Mean [Lying] Blood Pressure Mean [Sitting (for 1 minute prior to obtaining)] Blood Pressure Mean [Standing (for 1 minute prior to obtaining)] Pulse Ox 98 Oxygen Delivery Method Room Air YASSINE <TRISTON Nazario - Last Filed: 07/02/22 14:06> [facility] Lab Data Labs: Laboratory Results - last 24 hr 07/02/22 07/02/22 07/02/22 12:04 12:04 13:35 WBC 8.0 RBC 4.80 Hgb 15.2 H Hct 45.9 MCV 95.6 MCH 31.7 MCHC 33.1 RDW Std Deviation 48.3 H RDW Coeff of Angela 13.6 Plt Count 298 MPV 10.7 Immature Gran % (Auto) 0.400 Neut % (Auto) 60.3 Lymph % (Auto) 27.0 Isabela % (Auto) 8.6 Eos % (Auto) 2.6 Baso % (Auto) 1.1 H Absolute Neuts (auto) 4.8 Absolute Lymphs (auto) 2.16 Nucleated RBC % 0 Sodium 141 Potassium 4.1 Chloride 106 Carbon Dioxide 28.0 Anion Gap 7 BUN 21 H Creatinine 0.74 Estim Creat Clear Calc 46.43 Est GFR (MDRD) Af Amer 100 Est GFR (MDRD) Non-Af 83 BUN/Creatinine Ratio 28.6 H Glucose 164 H Calcium 9.6 Troponin I High Sens 7 Urine Color Yellow Urine Clarity Clear Urine pH 6.0 Ur Specific [place] 1.010 Urine Protein Negative Urine Glucose (UA) Normal Urine Ketones Negative Urine Occult Blood Negative Urine Nitrite Negative Urine Bilirubin Negative Urine Urobilinogen Normal Ur Leukocyte Esterase Negative Urine RBC 0 SEEN Urine WBC 0 SEEN Ur Squamous Epith Cells 0 SEEN Urine Bacteria 0 SEEN Urine Mucus 0 SEEN Radiography Diagnostic Testing: Clinical Impression(s) from Imaging Studies Chest X-Ray 07/02/22 12:25 IMPRESSION: 1. No acute findings in the chest. 2. No interval change when compared to 03/30/2022. Electronically Signed: Mckay Cooper MD at 13:47 EDT Reading Location ID and State: [id number] [facility] , Service support , EKG Sinus bradycardia: Attestation: I personally reviewed and interpreted this EKG as follows: Interpretation: Sinus Bradycardia Comments: Sinus bradycardia with a QRS interval 78 ms, CT interval 156 ms, no acute ST elevation, no acute infarct noted. Treatment and Re-Evaluation :: All radiologic examinations were read, reviewed by the emergency department attending. From these reads, a plan of care will be put in place. Patient appears well, patient appears nontoxic, vital signs are stable. Patient presents to the emergency department with complaints of dizziness worse with ambulation. Patient did receive a full cardiac work-up. Patient CBC was unremarkable, chemistries were unremarkable, and were negative. EKG was unremarkable, no evidence of ACS, SC. Patient's urinalysis was negative for any infection. Chest x-ray was unremarkable. Patient was slightly orthostatic hypotensive, patient did receive 1 L of IV fluids. Upon looking at the patient's medications, patient recently got a dose increase from her carvedilol from 3.125 twice a day to 6.125. At this time, I believe that this could be the reason why she is more dizzy with ambulation and sitting up. I spoke with Dr. Carver cardiology, he thinks it is appropriate to cut this dose in half. Patient will take 3.125 twice a day if she continues to have problems can take 3.25 once a day. I spoke with the patient, the patient's they verbally understand. They understand the need to follow-up with cardiology. All questions answered. Patient stable for discharge. <Dr. Cristino Levy, DO - Last Filed: 07/02/22 15:57> [facility] Narrative Medical decision making narrative: Patient appears well, patient appears nontoxic, vital signs are stable. Patient presents to the emergency department with complaints of dizziness worse with ambulation. Patient did receive a full cardiac work-up. Patient CBC was unremarkable, chemistries were unremarkable, and were negative. EKG was unremarkable, no evidence of ACS, SC. Patient's urinalysis was negative for any infection. Chest x-ray was unremarkable. Patient was slightly orthostatic hypotensive, patient did receive 1 L of IV fluids. Upon looking at the patient's medications, patient recently got a dose increase from her carvedilol from 3.125 twice a day to 6.125. At this time, I believe that this could be the reason why she is more dizzy with ambulation and sitting up. I spoke with Dr. Carver cardiology, he thinks it is appropriate to cut this dose in half. Patient will take 3.125 twice a day if she continues to have problems can take 3.25 once a day. I spoke with the patient, the patient's they verbally understand. They understand the need to follow-up with cardiology. All questions answered. Patient stable for discharge. This patient was seen with a PA/ETHANOL MAINTENANCE MECHANIC Individually assessed they patient including history and physical. I have reviewed everything on the chart that is available and agree with the documentation provided by the PA/ETHANOL MAINTENANCE MECHANIC including discussion about the assessment, treatment plan, discussion, and return precautions. Well-appearing 71-year-old female with orthostatic hypotension. She does tell me that her dose of carvedilol was doubled a few months ago. Her amlodipine is stayed the same at 5 mg. Patient orthostatic in the ER however lab work is normal. Suspect this is due to medication. Treatment plan as above. Lab Data Attestation: I reviewed the patient's lab results. Labs: Laboratory Results - last 24 hr 07/02/22 07/02/22 07/02/22 12:04 12:04 13:35 WBC 8.0 RBC 4.80 Hgb 15.2 H Hct 45.9 MCV 95.6 MCH 31.7 MCHC 33.1 RDW Std Deviation 48.3 H RDW Coeff of Angela 13.6 Plt Count 298 MPV 10.7 Immature Gran % (Auto) 0.400 Neut % (Auto) 60.3 Lymph % (Auto) 27.0 Isabela % (Auto) 8.6 Eos % (Auto) 2.6 Baso % (Auto) 1.1 H Absolute Neuts (auto) 4.8 Absolute Lymphs (auto) 2.16 Nucleated RBC % 0 Sodium 141 Potassium 4.1 Chloride 106 Carbon Dioxide 28.0 Anion Gap 7 BUN 21 H Creatinine 0.74 Estim Creat Clear Calc 46.43 Est GFR (MDRD) Af Amer 100 Est GFR (MDRD) Non-Af 83 BUN/Creatinine Ratio 28.6 H Glucose 164 H Calcium 9.6 Troponin I High Sens 7 Urine Color Yellow Urine Clarity Clear Urine pH 6.0 Ur Specific [place] 1.010 Urine Protein Negative Urine Glucose (UA) Normal Urine Ketones Negative Urine Occult Blood Negative Urine Nitrite Negative Urine Bilirubin Negative Urine Urobilinogen Normal Ur Leukocyte Esterase Negative Urine RBC 0 SEEN Urine WBC 0 SEEN Ur Squamous Epith Cells 0 SEEN Urine Bacteria 0 SEEN Urine Mucus 0 SEEN Radiography Diagnostic Testing: Clinical Impression(s) from Imaging Studies Chest X-Ray 07/02/22 12:25 IMPRESSION: 1. No acute findings in the chest. 2. No interval change when compared to 03/30/2022. Electronically Signed: Mckay Cooper MD at 13:47 EDT Reading Location ID and State: [address] [place] [address] , Service support , All radiologic examinations were read, reviewed by the emergency department attending. From these reads, a plan of care will be put in place. Discharge Plan Triage Chief Complaint: Dizziness ED Midlevel Provider: Yuniel Rea ED Provider: Cristino Levy Dx/Rx/DC Orders Clinical Impression: Drug-induced hypotension Instructions: Hypotension Dc, ED Low Blood Pressure, All Causes Prescriptions: No Action aspirin 81 MG tablet,chewable 81 mg PO QHS atorvastatin 80 MG tablet 80 mg PO QHS levothyroxine 125 MCG tablet 125 mcg PO DAILY Qty: 30 0RF carvedilol 6.25 MG tablet 3.125 mg PO BID Qty: 0 0RF Rx Instructions: Hold if heart rate is less than 60/min isosorbide mononitrate 30 mg tablet extended release 24 hr 30 mg PO DAILY Label Comments: TAKE 1 TABLET BY MOUTH EVERY MORNING clopidogrel 75 mg tablet 75 mg PO DAILY Label Comments: TAKE 1 TABLET BY MOUTH EVERY DAY Primary Care Provider: Xavier Castillo Referrals: Xavier Castillo DO [Primary Care Provider] - Activity Restrictions/Additional Instructions: You need to follow-up with your reclamation kettle tender. You will cut your carvedilol in half and take that twice a day. If you continue to feel dizzy, just take half of carvedilol once daily. Ensure you follow-up with cardiology Disposition Disposition: Home, Self Care Discharge Date/Time: 07/02/22 14:27
[2022-07-02 12:12] VITALS: BP 116/65; BP 133/69; BP 148/119; PULSE 54; PULSE 55; PULSE 59
[2022-07-02] MEDS: 0.9% Normal Saline 1,000 ML 1000 ML IV (12:20)
--- NOTE | 2022-07-02 12:22 | EKG12_ITS ---
Test Reason : WEAKNESS Blood Pressure : / mmHG Vent. Rate : 048 BPM Atrial Rate : 048 BPM P-R Int : 156 ms QRS Dur : 096 ms QT Int : 474 ms P-R-T Axes : 032 003 089 degrees QTc Int : 423 ms Sinus bradycardia Cannot rule out Inferior infarct , age undetermined Abnormal ECG Confirmed by ELIZABETH JOHNSON, LUCIO ([id number]), make up editor MICHAEL CROSS ([id number]) on 07/04/2022 11:13:52 AM Referred By: Confirmed By:LUCIO JOHNSON MD
--- NOTE | 2022-07-02 12:25 | RAD_ITS ---
EXAM: XR CHEST, 2 VIEWS CLINICAL INDICATION: Cough. TECHNIQUE: Frontal and lateral views of the chest. COMPARISON: 03/30/2022. FINDINGS: LUNGS AND PLEURAL SPACES: Small calcified granuloma in the left upper lobe is unchanged. Mild pulmonary hyperinflation suggestive of mild COPD. No pneumothorax. No effusion. No suspicious infiltrates. HEART: Mild cardiomegaly is unchanged. Intact sternal wires and multiple surgical clips from CABG procedure. They are unchanged. MEDIASTINUM: Central airways and mediastinal contour are unremarkable. BONES/JOINTS: Unremarkable. SOFT TISSUES: Unremarkable. RAD/Chest PA and Lateral IMPRESSION: 1. No acute findings in the chest. 2. No interval change when compared to 03/30/2022. Electronically Signed: Mckay Cooper MD at 13:47 EDT ,
[2022-07-02 12:28] LABS: Absolute Lymphocyte Count 2.16 X10^3/uL (0.83-4.51); Absolute Neutrophil Count 4.8 X10^3/uL (2.0-7.7); Basophil# 0.09 X10^3/uL; Basophil% 1.1 % (0-1); Eosinophil# 0.21 X10^3/uL; Eosinophils% 2.6 % (0-5); Hematocrit 45.9 % (37-47); Hemoglobin 15.2 g/dL (12.0-15.0); Lymphocyte # 2.16 X10^3/ul (0.83-4.51); Mean Corp Hgb Conc 33.1 g/dL (32-36); Mean Corpuscular Hgb 31.7 pg (27.0-32.0); Mean Corpuscular Volume 95.6 fL (81-99); Mean Platelet Vol. 10.7 fl (6.2-12.0); Monocyte# 0.69 X10^3/uL; Monocyte% 8.6 % (0-10); NRBC Flagged by Analyzer 0 % (0-5); Neutrophil # 4.83 X10^3/uL (2.7-7.7); Neutrophil % 60.3 % (47-70); Platelet Count 298 K/mm3 (150-450); RBC Distribution Width CV 13.6 % (11.6-14.6); RBC Distribution Width SD 48.3 fl (35.1-43.9)
[2022-07-02 12:44] LABS: Anion Gap 7 (5-15); BUN 21 mg/dL (7-18); BUN/Creat Ratio 28.6 RATIO (10-20); Calcium,Total 9.6 mg/dL (8.5-10.1); Chloride 106 mmol/L (98-107); Creatinine, Serum 0.74 mg/dL (0.55-1.02); EST Glomerular Filtration Rate 83 mL/min (>60); Est Glom Filt Rate - Afr Amer 100 mL/min (>60); Estimated Creatinine Clearance 46.43 ml/min; Glucose 164 mg/dL (74-106); Potassium 4.1 mmol/L (3.5-5.1); Sodium Level 141 mmol/L (136-145); Troponin-I HS 7 pg/mL (3.0-54.0)
[2022-07-02 13:35] VITALS: BP 116/46; PULSE 53; RESP 16; O2SAT 98
[2022-07-02 13:43] LABS: Bacteria 0 SEEN /hpf (None Seen); Mucous, Urine 0 SEEN /hpf (<or=2+); Red Blood Cells-Urine 0 SEEN /hpf (0-5); Squamous Epithelial Cells - UA 0 SEEN /hpf (5-10); White Blood Cells 0 SEEN /hpf (0-5)
[2022-07-02 13:46] LABS: Color, Urine Yellow (Yellow); Glucose, Dipstick Normal (Normal); Ketone-Dipstick Negative (Negative); Leukocyte Esterase-Dipstick Negative /ul (Negative); Nitrite-Dipstick Negative (Negative); Occult Blood-Urine Negative /ul (Negative); Protein-Dipstick Negative (Negative); Urine Bilirubin Dipstick Negative (Negative); Urine Clarity Clear (Clear); Urine Urobilinogen Normal (Normal)
== END 2022-07-02 14:27 | disposition home or self-care (01) ==
PROVIDERS: Nurse Practitioner; Emergency Provider Student in an Organized Health Care Education/Training Program; PCP Preventive Medicine Occupational Medicine; Visit Provider Student in an Organized Health Care Education/Training Program
DX: I95.2 Hypotension due to drugs (principal); T44.7X5A Adverse effect of beta-adrenoreceptor antagonists, initial encounter; I25.10 Atherosclerotic heart disease of native coronary artery without angina pectoris; F17.210 Nicotine dependence, cigarettes, uncomplicated
CPT/HCPCS: 71046; 80048; 81001; 84484; 85025; 93005; 96360; 99284; J7030; A4216

== ENCOUNTER 2023-01-06 13:19 | Emergency (ER) | payer BC, SELFPAY ==
[2023-01-06 13:20] VITALS: BP 118/76; PULSE 80; RESP 18; TEMP 36.1; O2SAT 97; BMI 24.6
--- NOTE | 2023-01-06 13:35 | CT_ITS ---
STUDY: CTA HEAD AND NECK WITH CONTRAST REASON FOR EXAM: Female, 72 years old. left headache, neck pain, vertigo RADIATION DOSAGE (If Supplied By Facility): CTDIvol = ( 31.74 ) mGy, DLP = ( 1457.63 ) mGycm TECHNIQUE: CT angiography was performed with a multi-detector CT scanner. Data acquisition was obtained from the skull base through the vertex following intravenous administration of IV 100mL [id number]-370. MIP images were reconstructed from the axial data set. Post-processing of the angiographic images was performed, with multiplanar reformation and 3D reconstruction. Individualized dose optimization techniques were used for this CT. COMPARISON: No relevant priors. FINDINGS: Normal bilateral petrous carotid arteries. Normal right cavernous carotid artery with a normal supraclinoid bifurcation. Normal left cavernous carotid artery with a normal supraclinoid bifurcation. Normal right A1 segments of the anterior cerebral artery. Normal left A1 segments of the anterior cerebral artery. Normal intact anterior communicating artery (ACOM). Normal bilateral A2 segments of the anterior cerebral arteries. Normal right M1 and M2 segments of the middle cerebral arteries, with a normal M1 bifurcation. Normal left M1 and M2 segments of the middle cerebral arteries, with a normal M1 bifurcation. Normal right posterior communicating artery (PCOM). Normal left posterior communicating artery (PCOM). Normal bilateral vertebral arteries. Normal basilar artery with a normal basilar bifurcation. The visualized bilateral superior cerebellar (SCA) arteries are normal. Normal bilateral P1, P2 and visualized P3 segments of the posterior cerebral arteries. There is no demonstrated aneurysm of the [place] of Sr. There is no demonstrated abnormality of the visualized brain. AORTIC ARCH: Normal visualized aortic arch. Normal origins of the brachiocephalic, left common carotid, and left subclavian arteries. RIGHT CAROTID ARTERIES: Normal right common carotid artery (CCA). Normal right common carotid bulb. There is moderate calcified atherosclerotic plaque formation of the origin of the right internal carotid artery with less than 50% cross sectional diameter stenosis. Stenosis measured at approximately 40% Normal visualized cervical portion of the right internal carotid artery. Normal origin of the right external carotid artery (ECA). LEFT CAROTID ARTERIES: Normal left common carotid artery (CCA). Normal left common carotid bulb. Normal origin of the left internal carotid (ICA) artery without a hemodynamically significant stenosis. Normal visualized cervical portion of the left internal carotid artery. Normal origin of the left external carotid artery (ECA). VERTEBRAL ARTERIES: There is enhancement within the bilateral vertebral arteries with a small right vertebral artery, and a dominant left vertebral artery. No airway narrowing or deviation, no suspicious enhancing lesion. No bulky adenopathy, bony structures show degenerative change CT/CTA Head AND Neck W/ Contrast IMPRESSION: No vaso-occlusive disease or significant stenosis within the intracranial circulation No aneurysm or vascular malformation Moderate calcified plaque in the proximal right ICA but no significant stenosis, stenosis estimated at 40% No significant stenosis in the left ICA Small right vertebral artery along its entire course Electronically Signed: Freddy Gallagher MD at 14:54 EST ,
--- NOTE | 2023-01-06 13:40 | EX.ED.DYSGE1 ---
HPI History of Present Illness Chief Complaint: Dizziness Informant: patient Onset/Context/Timing Onset: Weeks (2.5) Context: Sudden Onset Timing: Continuous Current Severity: Severe Maximum Severity: Severe Narrative Narrative: Patient has peripheral arterial disease in her legs, and about 2.5 weeks ago she had balloon angioplasty of pre-existing stents in her groins. She states she has been having no issues with her legs ever since. However, the night of surgery she started having severe headache left occipital and down into the left posterior neck along with vertiginous symptoms. She states specifically, when she woke up from surgery the symptoms were not there, they started later. The symptoms have been there ever since. States she saw her PCP, she was diagnosed with occipital neuralgia, prescribed carbamazepine, and referred to neurology with whom she has not seen yet. She states the symptoms are worsening and nothing is better. She denies any vision changes, nausea, vomiting, peripheral neurologic symptoms in arms or legs. She states getting up and walking makes her feel vertiginous, and turning her head also triggers and reproduces the symptoms, but the pain has been severe, it is not intermittent, and it seems to be worse when she moves her head. She has had no loss of consciousness. [facility] Medical History (Updated 01/06/23 @ 15:[address] MD) CAD (coronary artery disease) DVT (deep venous thrombosis) Dyslipidemia Hypothyroidism PAD (peripheral artery disease) Home Medications aspirin 81 mg chewable tablet 81 mg PO QHS heart health 07/08/14 [History Last Taken 09/25/15] atorvastatin 80 mg tablet 80 mg PO QHS cholesterol 08/15/18 [History Last Taken Unknown] carvedilol 6.25 mg tablet 3.125 mg (1/2 x 6.25 mg) PO BID ##0 08/16/18 [Rx Last Taken 09/25/15] levothyroxine 125 mcg tablet 125 mcg PO DAILY #30 tabs 08/16/18 [Rx Last Taken Unknown] clopidogrel 75 mg tablet 75 mg PO DAILY 03/30/22 [History Last Taken Unknown] isosorbide mononitrate 30 mg tablet,extended release 24 hr 30 mg PO DAILY 03/30/22 [History Last Taken Unknown] meclizine 25 mg tablet 25 mg PO Q8H PRN PRN Dizziness #20 tabs 01/06/23 [Rx Last Taken Unknown] metoclopramide HCl 10 mg tablet (Reglan) 10 mg PO Q6H PRN nausea or headache #15 tabs 01/06/23 [Rx Last Taken Unknown] orphenadrine citrate 100 mg tablet,extended release 100 mg PO Q12H PRN muscle pain #12 tabs 01/06/23 [Rx Last Taken Unknown] tramadol 50 mg tablet 50 mg PO PRN 01/06/23 [History Last Taken Unknown] Allergy/AdvReac Type Severity Reaction Status Date / Time No Known Allergies Allergy Verified 01/06/23 13:22 Surgical History (Updated 01/06/23 @ 14:[address] MD) H/O: hysterectomy History of cardiac radiofrequency ablation History of coronary rotational ablation History of heart artery stent Hx of CABG S/P CABG (coronary artery bypass graft) S/P cholecystectomy Social History Smoking Status: Current every day smoker tobacco type: cigarettes ROS ROS ED Constitutional Constitutional ED: Denies chills or fever(s) Eyes Eyes: Denies change in vision or diplopia ENT ENT ED: Reports neck pain and vertigo; Denies hearing loss, rhinorrhea, sore throat or tinnitus Cardiovascular Cardiovascular: Denies chest pain or palpitations Respiratory/Chest Respiratory/Chest: Denies cough or dyspnea Gastrointestinal Gastrointestinal: Denies abdominal pain, diarrhea, nausea or vomiting Genitourinary Genitourinary ED: Denies dysuria or hematuria Musculoskeletal Musculoskeletal: Reports neck pain; Denies back pain Integumentary Denies abscess or rash Neurologic Neurologic: Reports headache(s) and vertigo; Denies paresthesias or weakness Psychiatric Psychiatric: Denies anxiety or suicidal thoughts EXAM Physical Exam Const Vital Signs: 01/06/23 13:20 Temperature 97 F L Temperature Source Temporal Pulse Rate 80 Respiratory Rate 18 Blood Pressure 118/76 Blood Pressure Mean 90 Pulse Ox 97 Positive well nourished and well developed General Appearance ED: well developed and NAD HEENT Reports TM's clear and moist mucous membranes HEENT Narrative: Tender throughout the left occipital scalp but not superficially, with palpation of the actual cranium in this area. Normal on inspection no palpable hematomas, masses. normocephalic and atraumatic Tympanic Membrane ED: Yes TM's clear Eyes PERRL and EOMs intact bilaterally Neck full ROM and supple Neck Narrative: No audible carotid bruit. No sternocleidomastoid tenderness. No mastoid process tenderness or periauricular lymphadenopathy. Tender left posterior neck paraspinal musculature, and more laterally in the posterior neck. No palpable lymphadenopathy. Resp normal respiratory effort and clear to auscultation bilaterally Cardio regular rate, regular rhythm and no murmurs GI non-tender and non-distended Auscultation: normoactive bowel sounds Palpation: soft Back/Spine no CVA tenderness General Back: other FROM Extremity normal to inspection General Extremety ED: Negative for edema, pulses abnormal or tenderness General Extremity: Negative for edema or pulses abnormal Neuro oriented x3, CN's II-XII intact bilaterally and no sensory deficits noted Neuro Narrative: Normal [id number] and [id number] bilaterally Sensorium / Orientation: awake and alert Motor Exam: strength 5/5 throughout Psych mental status grossly normal Skin no rashes or lesions noted and no wounds MDM MDM MDM Narrative Medical decision making narrative: Seems patient's head and neck pain have a musculoskeletal component, but she is also having vertigo seems more peripheral. There does not seem to be an obvious link between the 2 of these and she states this started the same time. Given this I thought it was appropriate to obtain CT angiography of the head and neck in order to rule out a vascular etiology, subarachnoid hemorrhage, and mass. I reviewed the images and the report, basically negative for anything acute, there is some arterial disease seen in the right internal carotid artery that is noncritical. Meanwhile patient was treated with meclizine morphine and prophylactic Zofran. As I discussed with the patient primary headache syndrome is in the differential here, oftentimes can be triggered by muscular neck pain. That may be going on here. Supportive care advised will offer her prescriptions, and follow-up as scheduled as well as with her PCP. On reevaluation, the morphine did not help much with her pain but the meclizine helped with her vertigo. Will give her Reglan and Norflex prior to discharge as well as prescriptions for those 2 as well as meclizine. Lab Data Attestation: I reviewed the patient's lab results. Labs: Laboratory Results - last 24 hr 01/06/23 13:46 WBC 8.0 RBC 4.64 Hgb 14.6 Hct 42.6 MCV 91.8 MCH 31.5 MCHC 34.3 RDW Std Deviation 45.0 H RDW Coeff of Angela 13.2 Plt Count 296 MPV 9.8 Immature Gran % (Auto) 0.400 Neut % (Auto) 65.5 Lymph % (Auto) 25.2 Luna % (Auto) 6.0 Eos % (Auto) 2.0 Baso % (Auto) 0.9 Absolute Neuts (auto) 5.2 Absolute Lymphs (auto) 2.01 Nucleated RBC % 0 Sodium 136 Potassium 4.0 Chloride 107 Carbon Dioxide 23.0 Anion Gap 6 BUN 16 Creatinine 0.90 Estim Creat Clear Calc 50.84 Est GFR (MDRD) Af Amer 79 Est GFR (MDRD) Non-Af 66 BUN/Creatinine Ratio 17.8 Glucose 104 Calcium 9.3 Radiography Diagnostic Testing: Clinical Impression(s) from Imaging Studies Head/Neck CTA 01/06/23 13:35 IMPRESSION: No vaso-occlusive disease or significant stenosis within the intracranial circulation No aneurysm or vascular malformation Moderate calcified plaque in the proximal right ICA but no significant stenosis, stenosis estimated at 40% No significant stenosis in the left ICA Small right vertebral artery along its entire course Electronically Signed: Freddy Gallagher MD at 14:54 EST Reading Location ID and State: [facility] / [place] , Service support , Discharge Plan Triage Chief Complaint: Dizziness ED Provider: Sagar St Dx/Rx/DC Orders Clinical Impression: Neck pain on left side, Cephalgia, Vertigo, peripheral Instructions: Understanding Headache Pain, ED Vertigo, Unspecified Prescriptions: New metoclopramide HCl [Reglan] 10 mg tablet 10 mg PO Q6H PRN (Reason: nausea or headache) Qty: 15 0RF orphenadrine citrate 100 mg tablet extended release 100 mg PO Q12H PRN (Reason: muscle pain) Qty: 12 0RF meclizine [meclizine] 25 mg tablet 25 mg PO Q8H PRN PRN (Reason: Dizziness) Qty: 20 0RF No Action aspirin 81 MG tablet,chewable 81 mg PO QHS atorvastatin 80 MG tablet 80 mg PO QHS levothyroxine 125 MCG tablet 125 mcg PO DAILY Qty: 30 0RF carvedilol 6.25 MG tablet 3.125 mg PO BID Qty: 0 0RF Rx Instructions: Hold if heart rate is less than 60/min isosorbide mononitrate 30 mg tablet extended release 24 hr 30 mg PO DAILY Patient Comments: TAKE 1 TABLET BY MOUTH EVERY MORNING clopidogrel 75 mg tablet 75 mg PO DAILY Patient Comments: TAKE 1 TABLET BY MOUTH EVERY DAY tramadol 50 mg tablet 50 mg PO PRN Primary Care Provider: Xavier Castillo Referrals: Xavier Castillo DO [Primary Care Provider] - 1 Week if not improving (and w/ neurology as previously referred) Disposition Disposition: Home, Self Care
[2023-01-06] MEDS: Meclizine HCl 25 MG Tablet PO (13:46)
[2023-01-06] MEDS: 0.9% Normal Saline (500mL Bag) 500 ML 999 ML IV (13:46)
[2023-01-06] MEDS: Morphine 4 MG/ML Syringe IV (13:48)
[2023-01-06] MEDS: Ondansetron 4 MG/2 ML Vial IV (13:48)
[2023-01-06 13:53] LABS: Absolute Lymphocyte Count 2.01 X10^3/uL (0.83-4.51); Absolute Neutrophil Count 5.2 X10^3/uL (2.0-7.7); Basophil# 0.07 X10^3/uL; Basophil% 0.9 % (0-1); Eosinophil# 0.16 X10^3/uL; Hematocrit 42.6 % (37-47); Hemoglobin 14.6 g/dL (12.0-15.0); Lymphocyte # 2.01 X10^3/ul (0.83-4.51); Lymphocyte % 25.2 % (19-41); Mean Corp Hgb Conc 34.3 g/dL (32-36); Mean Corpuscular Hgb 31.5 pg (27.0-32.0); Mean Corpuscular Volume 91.8 fL (81-99); Mean Platelet Vol. 9.8 fl (6.2-12.0); Monocyte# 0.48 X10^3/uL; NRBC Flagged by Analyzer 0 % (0-5); Neutrophil # 5.24 X10^3/uL (2.7-7.7); Neutrophil % 65.5 % (47-70); Platelet Count 296 K/mm3 (150-450); RBC Distribution Width CV 13.2 % (11.6-14.6); Red Blood Count 4.64 M/mm3 (4.2-5.4)
[2023-01-06 14:09] LABS: Anion Gap 6 (5-15); BUN 16 mg/dL (7-18); BUN/Creat Ratio 17.8 RATIO (10-20); Calcium,Total 9.3 mg/dL (8.5-10.1); Chloride 107 mmol/L (98-107); EST Glomerular Filtration Rate 66 mL/min (>60); Est Glom Filt Rate - Afr Amer 79 mL/min (>60); Estimated Creatinine Clearance 50.84 ml/min; Glucose 104 mg/dL (74-106); Sodium Level 136 mmol/L (136-145)
[2023-01-06] MEDS: Orphenadrine 60 MG/2 ML Ampul IV (15:14)
[2023-01-06] MEDS: Metoclopramide 10 MG/2 ML Vial 5 MG IV (15:14)
[2023-01-06 15:36] VITALS: BP 138/78; PULSE 66; RESP 18
== END 2023-01-06 15:45 | disposition home or self-care (01) ==
PROVIDERS: Emergency Provider Emergency Medicine; PCP Preventive Medicine Occupational Medicine; Visit Provider Emergency Medicine
DX: M54.2 Cervicalgia (principal); I73.9 Peripheral vascular disease, unspecified; H81.399 Other peripheral vertigo, unspecified ear; E78.5 Hyperlipidemia, unspecified; R51.9 Headache, unspecified; I25.10 Atherosclerotic heart disease of native coronary artery without angina pectoris; F17.210 Nicotine dependence, cigarettes, uncomplicated; Z79.82 Long term (current) use of aspirin; Z79.02 Long term (current) use of antithrombotics/antiplatelets; Z79.899 Other long term (current) drug therapy
CPT/HCPCS: 70496; 70498; 80048; 85025; 96374; 96375; 99282; J7030; Q9967; A4216; J2405

== ENCOUNTER → 2024-10-16 | Outpatient (CLI) | payer BC, SELFPAY ==
--- OUTSIDE RECORDS SUMMARY | 2024-10-16 06:51 | XMS RPT_ITS | CCD ---
Author Organization [facility] Care Team Providers Care Shorer Name Role Phone TRACEY CASTILLO DO Primary Care Physician ([phone] DAMIAN ESCOBAR MD Attending Unavailable TRACEY CASTILLO DO Primary Care Unavailable TRACEY CASTILLO DO Primary Care Unavailable TRACEY CASTILLO DO Attending Unavailable DAMIAN ESCOBAR MD Attending Unavailable TRACEY CASTILLO DO Primary Care Unavailable TRACEY CASTILLO DO Attending Unavailable TRACEY CASTILLO DO Primary Care Unavailable TRACEY CASTILLO DO Attending Unavailable TRACEY CASTILLO DO Primary Care Unavailable Tea Goode NP Referring Unavailable Tea Goode NP Attending Unavailable Mary Espinosa Primary Care Unavailable Medications Current Medications Medication Drug Class(es) Dates Sig (Normalized) Sig (Original) amLODIPine 5 mg oral tablet (5 sources) Dihydropyridine Calcium Channel Alba Start: 08-31-2021 amLODIPine 5 mg oral tablet Dose : 5 mg = 1 tab(s), Oral, qDay, # 90 tab(s), 3 Refill(s), Pharmacy: [facility]/pharmacy #[id number], 162, cm, 08/31/21 14:05:00 EDT, Height, kg, 08/31/21 14:05:00 EDT, Dosing Weight Start Date: 08/31/21 Status: Ordered Start: 07-15-2020 amLODIPine 5 m g oral tablet Dose : 5 mg = 1 tab(s), Oral, qDay, # 90 tab(s), 3 Refill(s), Pharmacy: [facility]/pharmacy #[id number], 161, cm, 07/15/20 14:21:00 EDT, Height, kg, 07/15/20 14:21:00 EDT, Dosing Weight Start Date: 07/15/20 Status: Ordered aspirin 81 mg delayed release oral tablet (11 sources) Platelet Aggregation Inhibitor, Nonsteroidal Anti-inflammatory Drug Start: 08-20-2018 aspirin 81 mg ora l delayed release tablet Dose : 81 mg = 1 tab(s), Oral, qDay, # 30 tab(s), 0 Refill(s) Start Date: 08/20/18 Status: Ordered Quantity: 30.0 Unit: tab(s) Repeat number: 1 Start: 08-20-2018 aspirin 81 mg oral delayed release tablet Dose : 81 mg = 1 tab(s), Oral, qDay, # 30 tab(s), 0 Refill(s) Start Date: 08/20/18 Status: Ordered Start: 07-08-2014 take 81 mg by mouth at bedtime Aspirin Active 81 MG PO AT BEDTIME July 07, 2014 11:00pm atorvastatin 80 mg oral tablet (11 sources) HMG-CoA Reductase Inhibitor Start: 02-01-2024 take 1 tablet by mouth once daily atorvastatin 80 mg oral tablet See Instructions, TAKE 1 TABLET EVERY DAY, # 90 tab(s), 3 Refill(s), Pharmacy: [facility]/pharmacy #[id number], 160, cm, 01/03/24 12:29:00 EST, Height, kg, 01/03/24 12:29:00 EST, Dosing Weight Start Date: 02/01/24 Status: Ordered Quantity: 90.0 Unit: tab(s) Repeat number: 4 Start: 08-15-2018 take 80 mg by mouth at bedtime Atorvastatin Active 80 MG PO AT BEDTIME August 14, 2018 11:00pm carvedilol 3.125 mg oral tablet (11 sources) alpha-Adrenergic Alba, beta-Adrenergic Alba Start: 08-29-2022 carvedilol 3.125 mg oral tablet Dose : 3.125 mg = 1 tab(s), Oral, BID, Replaces previous prescription for carvedilol 6.25 mg, # 180 tab(s), 1 Refill(s), Pharmacy: [facility]/pharmacy #[id number], 160, cm, 08/29/22 12:58:00 EDT, Height Start Date: 08/29/22 Status: Ordered Start: 12-30-2020 End: 09-16-2022 carvedilol 6.25 mg oral tabl et Dose : 6.25 mg = 1 tab(s), Oral, BID, # 180 tab(s), 3 Refill(s), Pharmacy: [facility]/pharmacy #[id number], 162, cm, 09/21/21 9:24:00 EDT, Height, kg, 09/21/21 9:24:00 EDT, Dosing Weight Start Date: 09/21/21 Stop Date: 09/16/22 Status: Ordered Start: 08-16-2018 take 3.125 mg by ezequiel th twice daily Carvedilol Active 3.125 MG PO TWICE A DAY 0 August 16, 2018 8:18am Hold if heart rate is less than 60/min Start: 07-08-2014 End: 08-16-2018 take 6.25 mg by mouth twice daily Carvedilol Discontinued 6.25 MG PO TWICE A DAY July 07, 2014 11:00pm August 16, 2018 8:18am clopidogrel 75 mg oral tablet (8 sources) [id number] Platelet Inhibitor Start: 05-23-2023 clopidogrel 75 mg or al tablet Dose : 75 mg = 1 tab(s), Oral, Daily, 0 Refill(s) Start Date: 05/23/23 Status: Ordered Repeat number: 1 Start: 03-30-2022 take 75 mg by mouth once daily Clopidogrel Active 75 MG PO DAILY March 30, 2022 12:00am Start: 03-16-2021 clopidogrel 75 mg oral tablet Dose : 75 mg = 1 tab(s), Oral, qDay, # 30 tab(s), 0 Refill(s) Start Date: 03/16/21 Status: Ordered cyclobenzaprine hydrochloride 10 mg oral tablet (2 sources) Muscle Relaxant Start: 06-03-2024 End: 07-13-2024 cyclobenzaprine 10 mg oral tablet Dose : 10 mg = 1 tab(s), Oral, TID, PRN for spasm, # 60 tab(s), 1 Refill(s), Pharmacy: [facility]/pharmacy #[id number], DDD (degenerative disc disease), lumbar, 162, cm, 06/03/24 13:52:00 EDT, Height, kg, 06/03/24 13:52:00 EDT, Dosing Weight Start Date: 06/03/24 Stop Date: 07/13/24 Status: Ordered Quantity: 60.0 Unit: tab(s) Repeat number: 2 Indications: Other intervertebral disc degeneration, lumbar region; Start: 02-01-2024 cyclobenzaprin e 10 mg oral tablet Dose : 10 mg = 1 tab(s), Oral, TID, PRN for spasm, # 15 tab(s), 2 Refill(s), Pharmacy: [facility]/pharmacy #[id number], DDD (degenerative disc disease), lumbar, 160, cm, 01/03/24 12:29:00 EST, Height, kg, 01/03/24 12:29:00 EST, Dosing Weight Start Date: 02/01/24 Status: Ordered Quantity: 15.0 Unit: tab(s) Repeat number: 3 Indication: Other intervertebral disc degeneration, lumbar region diclofenac sodium 75 mg delayed release oral tablet (1 source) Nonsteroidal Anti-inflammatory Drug Start: 06-10-2024 diclofenac sodium 75 mg oral delayed release tablet Dose : 75 mg = 1 tab(s), Oral, BID, with food, # 60 tab(s), 0 Refill(s), [id number], Right knee pain, 162, cm, 06/10/24 13:37:00 EDT, Height, kg, 06/10/24 13:37:00 EDT, Dosing Weight Start Date: 06/10/24 Status: Ordered Quantity: 60.0 Unit: tab(s) Repeat number: 1 Indications: Pain in right knee; 24 hr isosorbide mononitrate 30 mg extended release oral tablet (5 sources) Nitrate Vasodilator Start: 03-30-2022 take 30 mg by mouth once daily Isosorbide Mononitrate Active 30 MG PO DAILY March 30, 2022 12:00am Start: 10-14-2021 take 1 tablet by ezequiel th once daily in the morning isosorbide mononitrate 30 mg oral tablet, extended release 1 tab(s), Oral, qAM, # 30 tab(s), 2 Refill(s), Pharmacy: [facility] ST[id number], 162, cm, 09/21/21 9:24:00 EDT, Height, kg, 09/21/21 9:24:00 EDT, Dosing Weight Start Date: 10/14/21 Status: Ordered levothyroxine sodium 0.112 mg oral tablet (13 sources) l-Thyroxine Start: 02-14-2023 End: 03-26-2025 levothyroxine 112 mcg (0.112 mg) oral tablet Dose : 112 mcg = 1 tab(s), Oral, qDay, # 90 tab(s), 3 Refill(s), Pharmacy: [facility]/pharmacy #[id number], 160, cm, 01/03/24 12:29:00 EST, Height, kg, 01/03/24 12:29:00 EST, Dosing Weight Start Date: 02/20/24 Stop Date: 03/26/25 Status: Ordered Quantity: 90.0 Unit: tab(s) Repeat number: 4 Start: 02-01-2022 levothyroxine 112 mcg (0.112 mg) oral tablet Dose : 112 mcg = 1 tab(s), Oral, qDay, # 90 tab(s), 3 Refill(s), Pharmacy: [facility]/pharmacy #[id number], 162, cm, 11/02/21 14:23:00 EDT, Height, kg, 11/02/21 14:23:00 EDT, Dosing Weight Start Date: 02/01/22 Status: Ordered Start: 08-31-2021 levothyroxine 112 mcg (0.112 mg) oral tablet Dose : 112 mcg = 1 tab(s), Oral, qDay, pt needs appt, # 90 tab(s), 0 Refill(s), Pharmacy: [facility]/pharmacy #[id number], 162, cm, 08/31/21 14:05:00 EDT, Height, kg, 08/31/21 14:05:00 EDT, Dosing Weight Start Date: 08/31/21 Status: Ordered Start: 01-13-2021 levothyroxine 112 mcg (0.112 mg) oral tablet Dose : 112 mcg = 1 tab(s), Oral, qDay, # 90 tab(s), 0 Refill(s), Pharmacy: [facility]/pharmacy #[id number], 165.1, cm, 08/11/20 8:53:00 EDT, Height, kg, 08/11/20 8:53:00 EDT, Dosing Weight Start Date: 01/13/21 Status: Ordered Start: 08-16-2018 take 125 ug by mouth once daily Levothyroxine Active 125 MCG PO DAILY August 15, 2018 11:00pm Start: 07-08-2014 End: 08-16-2018 take 112 ug by mouth once daily Levothyroxine Discontinued 112 MCG PO DAILY July 07, 2014 11:00pm August 16, 2018 8:17am losartan potassium 50 mg oral tablet (2 sources) Angiotensin 2 Receptor Alba Start: 10-25-2022 losartan 50 mg oral tablet Dose : 50 mg = 1 tab(s), Oral, qDay, # 90 tab(s), 3 Refill(s), [id number], Essential hypertension, 165, cm, 10/12/22 9:06:00 EDT, Height, kg, 10/12/22 9:06:00 EDT, Dosing Weight Start Date: 10/25/22 Status: Ordered meclizine hydrochloride 25 mg oral tablet (1 source) Antiemetic Start: 01-06-2023 take 25 mg by mouth every eight hours as needed Meclizine Active 25 MG PO EVERY 8 HOURS NEEDED January 06, 2023 3:11pm meloxicam 15 mg oral tablet (2 sources) Nonsteroidal Anti-inflammatory Drug Start: 01-03-2024 meloxicam 15 mg oral tablet Dose : 15 mg = 1 tab(s), Oral, qDay, # 30 tab(s), 0 Refill(s), [id number], DDD (degenerative disc disease), lumbar, 160, cm, 01/03/24 12:29:00 EST, Height, kg, 01/03/24 12:29:00 EST, Dosing Weight Start Date: 01/03/24 Status: Ordered Quantity: 30.0 Unit: tab(s) Repeat number: 1 Indications: Other intervertebral disc degeneration, lumbar region; metoclopramide 10 mg oral tablet (1 source) Dopamine-2 Receptor Antagonist Start: 01-06-2023 take 1 tablet by mouth every six hours Metoclopramide Hcl (Reglan) 10 mg tablet Active 10 MG PO EVERY 6 HOURS January 06, 2023 12:00am 24 hr metoprolol succinate 25 mg extended release oral tablet (2 sources) beta-Adrenergic Alba Start: 01-09-2024 End: 01-03-2025 metoprolol succinate 25 mg oral TABLET extended release Dose : 12.5 mg = 0.5 tab(s), Oral, qDay, Do not crush or chew (controlled release), # 45 tab(s), 3 Refill(s), Pharmacy: [facility]/pharmacy #[id number], Atrial flutter, paroxysmal, 160, cm, 01/03/24 12:29:00 EST, Height, kg, 01/03/24 12:29:00 EST, Dosing Weight Start Date: 01/09/24 Stop Date: 01/03/25 Status: Ordered Quantity: 45.0 Unit: tab(s) Repeat number: 4 Indications: Unspecified atrial flutter; Multivitamin preparation (9 sources) Start: 07-12-2019 take 1 tablet by mouth once daily Multivitamin Dose = 1 tab(s), Oral, Daily, 0 Refill(s) Start Date: 07/12/19 Status: Ordered Repeat number: 1 Start: 07-12-2019 take 1 tablet by ezequiel th once daily Multivitamin Dose = 1 tab(s), Oral, Daily, 0 Refill(s) Start Date: 07/12/19 Status: Ordered nitroglycerin 0.4 mg sublingual tablet (8 sources) Nitrate Vasodilator Start: 10-25-2022 nitroglyce rin 0.4 mg sublingual tablet 0.4 mg Dose = 1 tab(s), Sublingual, q5min, PRN for chest pain, not to exceed 3 doses/15 min--if pain persists, seek medical attention, # 25 tab(s), 1 Refill(s), Pharmacy: [facility]/pharmacy #[id number], CAD (coronary artery disease), 165, cm, 10/12/22 9:06:00 EDT, Height, kg, 10/12/22 9:06:00 EDT, Dosing Weight Start Date: 10/25/22 Status: Ordered Quantity: 25.0 Unit: tab(s) Repeat number: 2 Indications: Atherosclerotic heart disease of [place] coronary artery without angina pectoris; Start: 08-31-2021 nitroglycerin 0.4 mg sublingual tablet 0.4 mg Dose = 1 tab(s), Sublingual, q5min, PRN for chest pain, not to exceed 3 doses/15 min--if pain persists, seek medical attention, # 25 tab(s), 1 Refill(s), Pharmacy: [facility]/pharmacy #[id number], CAD (coronary artery disease), 162, cm, 08/31/21 14:05:00 ED... Start Date: 08/31/21 Status: Ordered 12 hr orphenadrine citrate 100 mg extended release oral tablet (1 source) Muscle Relaxant Start: 01-06-2023 take 100 mg by mouth every twelve hours Orphenadrine Citrate Active 100 MG PO Q12H January 06, 2023 3:10pm SUMAtriptan 50 mg oral tablet (1 source) Serotonin-1b and Serotonin-1d Receptor Agonist Start: 11-02-2021 End: 11-02-2022 SUMAtriptan 50 mg oral tablet Dose : 50 mg = 1 tab(s), Oral, qDay, PRN as needed for migraine headache, 1 tab onset , may repeat in 2 hrs. MAX 4 tab(s)/24hrs, # 9 tab(s), 0 Refill(s), 11/02/22 14:48:00 EDT, Pharmacy: [facility]/pharmacy #[id number], 162, cm, 11/02/21 14:23:00 EDT, Height Start Date: 11/02/21 Stop Date: 11/02/22 Status: Ordered traMADol hydrochloride 50 mg oral tablet (1 source) Opioid Agonist Start: 01-06-2023 Tramadol Activ e 50 MG PO NEEDED January 06, 2023 12:00am Problems Problem Classification Problem Date Documented Da te Episodic/Chronic Cardiac dysrhythmias (9 sources) Paroxysmal atrial flutter 08-20-2018 Chronic Cardiac dysrhythmias (2 sources) Palpitations; Translations: [Palpitations] 09-26-2015 Episodic Complications of surgical procedures or medical care (1 source) Drug-induced hypotension; Translations: [Hypotension due to drugs] 07-10-2022 Episodic Conditions associated with dizziness or vertigo (2 sources) Peripheral vertigo; Translations: [Other peripheral vertigo, unspecified ear] Onset: 10-09-2024 01-06-2023 Episodic Coronary atherosclerosis and other heart disease (10 sources) Coronary arteriosclerosis; Translations: [Atherosclerotic heart disease of [place] coronary artery without angina pectoris] Onset: 10-09-2024 08-20-2018 Chronic Disorders of lipid metabolism (13 sources) Hyperlipidemia; Translations: [Dyslipidemia] Onset: 02-01-2024 08-20-2018 Chronic Essential hypertension (11 sources) Essential hypertension; Translations: [Essential (primary) hypertension] Onset: 02-01-2024 08-20-2018 Chronic Headache; including migraine (6 sources) Headache; Translations: [Headache] 11-04-2021 Episodic Nonspecific chest pain (5 sources) Chest pain at rest; Translations: [Chest pain, unspecified] Onset: 10-09-2024 08-15-2018 Episodic Other circulatory disease (1 source) Hypotension, unspecified; Translations: [Hypotension, unspecified] Onset: 10-09-2024 Episodic Other connective tissue disease (7 sources) Thigh pain 08-11-2020 Episodic Other nervous system disorders (9 sources) Neurogenic claudication 07-23-2019 Episodic Other non-traumatic joint disorders (1 source) Knee pain 06-10-2024 Episodic Other screening for suspected conditions (not mental disorders or infectious disease) (9 sources) Liver function tests abnormal 07-23-2019 Episodic Peripheral and visceral atherosclerosis (10 sources) Peripheral vascular disease; Translations: [Peripheral vascular disease, unspecified] Onset: 10-09-2024 08-11-2020 Chronic Residual codes; unclassified (2 sources) Tobacco user; Translations: [Tobacco use] 03-31-2022 Episodic Spondylosis; intervertebral disc disorders; other back problems (9 sources) Degeneration of lumbar intervertebral disc 07-15-2020 Chronic Spondylosis; intervertebral disc disorders; other back problems (11 sources) Low back pain; Translations: [Neck pain] 07-23-2019 Episodic Substance-related disorders (11 sources) Nicotine dependence; Translations: [Cigarette smoker ] 07-15-2020 Chronic Thyroid disorders (13 sources) Hypothyroidism; Translations: [Hypothyroidism, unspecified] Onset: 02-01-2024 08-20-2018 Chronic Unclassified (2 sources) Mammogram declined 05-23-2023 Unclassified (2 sources) Patient encounter status 12-04-2023 Results Test Name Value Interpretation Reference Range Facility XR KNEE 1 OR 2 VIEWS RIGHTon 06-11-2024 XR KNEE 1 OR 2 VIEWS RIGHT ORIGINAL EXAMINATION: TWO XRAY VIEWS OF THE RIGHT KNEE06/10/2024 2:52 pm COMPARISON: None HISTORY: ORDERING SYSTEM PROVIDED HISTORY: Reason for Exam: Twisting injury to the knee on May 23, 2024. Pain lateral aspect of the knee FINDINGS: There are postsurgical clips within the medial knee soft tissues. No acute fracture or dislocation. No significant joint effusion. There is mild patellar enthesopathic change. No aggressive osseous lesion. IMPRESSION: 1. No acute fracture or dislocation. 2. Mild patellar enthesopathic change. Interpreted by: Marlon Zhong DO Preliminary Report By: Marlon Zhong DO Electronically signed By Marlon Zhong DO Dictated Date: 06/11/2024 4:03:00 PM Prelim Date: 06/11/2024 4:03:57 PM Sign Date: 06/11/2024 4:03:57 PM Ordering Provider: TRACEY Villaseñor [facility] .Auto Diffon 02-01-2024 Basophil, Absolute 0.1 10 3/mcL Normal 0.0-0.2 [facility] Comment on above: Performed By: #### C BC, TSH, CMP, LIPID, ADIFF, ANEU, GFR #### [address] [address] Basophils/100 WBC (Bld) 1.2 % Normal 0.0-2.5 [facility] Comment on above: Performed By: #### C BC, TSH, CMP, LIPID, ADIFF, ANEU, GFR #### [address] [address] Eosinophil, Absolute 0.2 10 3/mcL Normal 0.0-0.7 [facility] Comment on above: Performed By: #### C BC, TSH, CMP, LIPID, ADIFF, ANEU, GFR #### [address] [address] Eosinophils/100 WBC (Bld) 3.1 % Normal 0.0-7.0 [facility] Comment on above: Performed By: #### C BC, TSH, CMP, LIPID, ADIFF, ANEU, GFR #### [address] [address] Lymphocyte, Absolute 2.8 10 3/mcL Normal 0.9-4.3 [facility] Comment on above: Performed By: #### C BC, TSH, CMP, LIPID, ADIFF, ANEU, GFR #### [address] [address] Lymphocytes/100 WBC (Bld) 36.3 % Normal 20.0-40.0 [facility] Comment on above: Performed By: #### C BC, TSH, CMP, LIPID, ADIFF, ANEU, GFR #### [address] [place], [place] [address] Monocyte, Absolute 0.7 10 3/mcL Normal 0.1-1.4 [facility] Comment on above: Performed By: #### C BC, TSH, CMP, LIPID, ADIFF, ANEU, GFR #### [address] [place], [place] [address] Monocytes/100 WBC (Bld) 9.5 % Normal 2.0-13.0 [facility] Comment on above: Performed By: #### C BC, TSH, CMP, LIPID, ADIFF, ANEU, GFR #### [address] [address] Neutrophils/100 WBC (Bld) 49.9 % Low 50.0-75.0 [facility] Comment on above: Performed By: #### C BC, TSH, CMP, LIPID, ADIFF, ANEU, GFR #### [address] [address] .GFRon 02-01-2024 GFR 89 ml/min/1.73sqm Normal [facility] Comment on above: Result Comment: GFR Population mean for , Non- Americans Ages 20-29 = 116 mL/min/1.73 sq.m. Ages 30-39 = 107 mL/min/1.73 sq.m. Ages 40-49 = 99 mL/min/1.73 sq.m. Ages 50-59 = 93 mL/min/1.73 sq.m. Ages 60-69 = 85 mL/min/1.73 sq.m. Ages 70+ = 75 mL/min/1.73 sq.m. Chronic Kidney Disease: Less than 60 mL/min/1.73 square meters End Stage Renal Disease: Less than 15 mL/min/1.73 square meters Performed By: #### C BC, TSH, CMP, LIPID, ADIFF, ANEU, GFR #### [address] [address] GFR Non- 73 ml/min/1.73sqm Normal [facility] Comment on above: Result Comment: GFR Population mean for , Non- Americans Ages 20-29 = 116 mL/min/1.73 sq.m. Ages 30-39 = 107 mL/min/1.73 sq.m. Ages 40-49 = 99 mL/min/1.73 sq.m. Ages 50-59 = 93 mL/min/1.73 sq.m. Ages 60-69 = 85 mL/min/1.73 sq.m. Ages 70+ = 75 mL/min/1.73 sq.m. Chronic Kidney Disease: Less than 60 mL/min/1.73 square meters End Stage Renal Disease: Less than 15 mL/min/1.73 square meters Performed By: #### C BC, TSH, CMP, LIPID, ADIFF, ANEU, GFR #### [address] [address] .NEUABSon 02-01-2024 Neutrophil, Absolute 3.9 10 3/mcL Normal 2.3-8.1 [facility] Comment on above: Performed By: #### C BC, TSH, CMP, LIPID, ADIFF, ANEU, GFR #### [address] [address] CBCon 02-01-2024 Erythrocyte distribution width (RBC) [Ratio] 13.9 % Normal 11.5-15.5 [facility] Comment on above: Performed By: #### C BC, TSH, CMP, LIPID, ADIFF, ANEU, GFR #### [address] [address] Hematocrit (Bld) [Volume fraction] 42.6 % Normal 34.0-46.0 [facility] Comment on above: Performed By: #### C BC, TSH, CMP, LIPID, ADIFF, ANEU, GFR #### [address] [address] Hgb 14.6 G/dL Normal 12.0-16.0 [facility] Comment on above: Performed By: #### C BC, TSH, CMP, LIPID, ADIFF, ANEU, GFR #### [address] [address] MCH (RBC) [Entitic mass] 32.1 pg Normal 27.0-33.0 [facility] Comment on above: Performed By: #### C BC, TSH, CMP, LIPID, ADIFF, ANEU, GFR #### [address] [address] MCHC 34.3 G/dL Normal 32.0-36.0 [facility] Comment on above: Performed By: #### C BC, TSH, CMP, LIPID, ADIFF, ANEU, GFR #### [address] [address] MCV (RBC) [Entitic vol] 93.5 fL Normal 80.0-99.0 [facility] Comment on above: Performed By: #### C BC, TSH, CMP, LIPID, ADIFF, ANEU, GFR #### [address] [address] Platelet 331 10 3/mcL Normal 150-450 [facility] Comment on above: Performed By: #### C BC, TSH, CMP, LIPID, ADIFF, ANEU, GFR #### [address] [address] Platelet mean volume (Bld) [Entitic vol] 8.4 fL Normal 6.6-10.5 [facility] Comment on above: Performed By: #### C BC, TSH, CMP, LIPID, ADIFF, ANEU, GFR #### [address] [address] RBC 4.56 10 6/mcL Normal 4.10-5.30 [facility] Comment on above: Performed By: #### C BC, TSH, CMP, LIPID, ADIFF, ANEU, GFR #### [address] [address] WBC 7.8 10 3/mcL Normal 4.5-10.8 [facility] Comment on above: Performed By: #### C BC, TSH, CMP, LIPID, ADIFF, ANEU, GFR #### [address] [address] CMPon 02-01-2024 Albumin Level 3.5 G/dL Normal 3.4-4.8 [facility] Comment on above: Performed By: #### C BC, TSH, CMP, LIPID, ADIFF, ANEU, GFR #### [address] [address] Albumin/Globulin [Mass ratio] 0.9 {ratio} Low 1.1-2.5 [facility] Comment on above: Performed By: #### C BC, TSH, CMP, LIPID, ADIFF, ANEU, GFR #### [address] [address] ALP [Catalytic activity/Vol] 182 U/L High 40-135 [facility] Comment on above: Performed By: #### C BC, TSH, CMP, LIPID, ADIFF, ANEU, GFR #### [address] [address] ALT [Catalytic activity/Vol] 67 U/L High 14-59 [facility] Comment on above: Performed By: #### C BC, TSH, CMP, LIPID, ADIFF, ANEU, GFR #### [address] [address] AST [Catalytic activity/Vol] 63 U/L High 10-40 [facility] Comment on above: Performed By: #### C BC, TSH, CMP, LIPID, ADIFF, ANEU, GFR #### [address] [address] Bili Total 0.9 mg/dL Normal 0.2-1.0 [facility] Comment on above: Result Comment: Use of this assay is not recommended for patients undergoing treatment with eltrombopag due to the potential for falsely elevated results. Performed By: #### C BC, TSH, CMP, LIPID, ADIFF, ANEU, GFR #### [address] [address] BUN/Creatinine Ratio 13 ratio Normal 7-27 [facility] Comment on above: Performed By: #### C BC, TSH, CMP, LIPID, ADIFF, ANEU, GFR #### [address] [address] Calcium [Mass/Vol] 9.7 mg/dL Normal 8.4-10.2 [facility] Comment on above: Performed By: #### C BC, TSH, CMP, LIPID, ADIFF, ANEU, GFR #### [place] [address] Chloride [Moles/Vol] 103 mmol/L Normal 98-107 [facility] Comment on above: Performed By: #### C BC, TSH, CMP, LIPID, ADIFF, ANEU, GFR #### [address] [place] [address] CO2 [Moles/Vol] 30 mmol/L Normal 23-31 [facility] Comment on above: Performed By: #### C BC, TSH, CMP, LIPID, ADIFF, ANEU, GFR #### [place] [address] Creatinine [Mass/Vol] 0.77 mg/dL Normal 0.55-1.02 [facility] Comment on above: Result Comment: Test ing performed on Siemens Dimension EXL analyzer using a modified kinetic More technique. Performed By: #### C BC, TSH, CMP, LIPID, ADIFF, ANEU, GFR #### [place] [address] Electrolyte Balance 8.0 mEq/L Normal 4.0-15.0 [facility] Comment on above: Performed By: #### C BC, TSH, CMP, LIPID, ADIFF, ANEU, GFR #### [place] [address] Globulin 3.7 G/dL Normal [facility] Comment on above: Performed By: #### C BC, TSH, CMP, LIPID, ADIFF, ANEU, GFR #### [place] [address] Glucose [Mass/Vol] 102 mg/dL Normal 83-110 [facility] Comment on above: Performed By: #### C BC, TSH, CMP, LIPID, ADIFF, ANEU, GFR #### [place] [address] Potassium [Moles/Vol] 4.6 mmol/L Normal 3.5-5.1 [facility] Comment on above: Performed By: #### C BC, TSH, CMP, LIPID, ADIFF, ANEU, GFR #### [address] [place], [place] [address] Sodium [Moles/Vol] 141 mmol/L Normal 136-145 [facility] Comment on above: Performed By: #### C BC, TSH, CMP, LIPID, ADIFF, ANEU, GFR #### [address] [place], [place] [address] Total Protein 7.2 G/dL Normal 6.4-8.2 [facility] Comment on above: Performed By: #### C BC, TSH, CMP, LIPID, ADIFF, ANEU, GFR #### [address] [place], [place] [address] Urea nitrogen [Mass/Vol] 10 mg/dL Normal 7-18 [facility] Comment on above: Performed By: #### C BC, TSH, CMP, LIPID, ADIFF, ANEU, GFR #### [address] [place], [place] [address] LABORATORYOrdered By: SYSTEM SYSTEM on 02-01-2024 Albumin BCP dye [Mass/Vol] 3.5 G/dL Normal 3.4 - 4.8 G/dL AO ADM SS Albumin/Globulin [Mass ratio] 0.9 {ratio} Low 1.1 - 2.5 ratio AO ADM SS ALP [Catalytic activity/Vol] 182 U/L High 40 - 135 U/L AO ADM SS ALT With P-5'-P [Catalytic activity/Vol] 67 U/L High 14 - 59 U/L AO ADM SS AST With P-5'-P [Catalytic activity/Vol] 63 U/L High 10 - 40 U/L AO ADM SS Basophils (Bld) [#/Vol] 0.1 103/mcL Normal 0.0 - 0.2 10^3/mcL AO Workflow SS Basophils/100 WBC (Bld) 1.2 % Normal 0.0 - 2.5 % AO Workflow SS Bilirubin [Mass/Vol] 0.9 mg/dL Normal 0.2 - 1 .0 mg/dL AO ADM SS Comment on above: Interpretive Data: U se of this assay is not recommended for patients undergoing treatment with eltrombopag due to the potential for falsely elevated results. Calcium [Mass/Vol] 9.7 mg/dL Normal 8.4 - 10. 2 mg/dL AO ADM SS Chloride [Moles/Vol] 103 mmol/L Normal 98 - 10 7 mmol/L AO ADM SS CO2 [Moles/Vol] 30 mmol/L Normal 23 - 31 mmol/L AO ADM SS Creatinine [Mass/Vol] 0.77 mg/dL Normal 0.55 - 1.02 mg/dL AO ADM SS Comment on above: Interpretive Data: T esting performed on Siemens Dimension EXL analyzer using a modified kinetic More technique. Electrolyte Balance 8.0 mEq/L Normal 4.0 - 15 .0 mEq/L AO ADM SS Eosinophil, Absolute 0.2 103/mcL Normal 0.0 - 0 .7 10^3/mcL AO Workflow SS Eosinophils/100 WBC (Bld) 3.1 % Normal 0.0 - 7.0 % AO Workflow SS Erythrocyte distribution width (RBC) [Ratio] 13.9 % Normal 11.5 - 15.5 % AO Workflow SS GFR/1.73 sq M.predicted among blacks MDRD (S/P/Bld) [Vol rate/Area] 89 ml/min/1.73sqm Invalid Interpretation Code AO Chemistry S Comment on above: Interpretive Data: GFR Population mean for , Non- Americans Ages 20-29 = 116 mL/min/1.73 sq.m. Ages 30-39 = 107 mL/min/1.73 sq.m. Ages 40-49 = 99 mL/min/1.73 sq.m. Ages 50-59 = 93 mL/min/1.73 sq.m. Ages 60-69 = 85 mL/min/1.73 sq.m. Ages 70+ = 75 mL/min/1.73 sq.m. Chronic Kidney Disease: Less than 60 mL/min/1.73 square meters End Stage Renal Disease: Less than 15 mL/min/1.73 square meters GFR/1.73 sq M.predicted among non-blacks MDRD (S/P/Bld) [Vol rate/Area] 73 ml/min/1.73sqm Invalid Interpretation Code AO Chemistry S Comment on above: Interpretive Data: GFR Population mean for , Non- Americans Ages 20-29 = 116 mL/min/1.73 sq.m. Ages 30-39 = 107 mL/min/1.73 sq.m. Ages 40-49 = 99 mL/min/1.73 sq.m. Ages 50-59 = 93 mL/min/1.73 sq.m. Ages 60-69 = 85 mL/min/1.73 sq.m. Ages 70+ = 75 mL/min/1.73 sq.m. Chronic Kidney Disease: Less than 60 mL/min/1.73 square meters End Stage Renal Disease: Less than 15 mL/min/1.73 square meters Globulin 3.7 G/dL Invalid Interpretation Code AO ADM SS Glucose [Mass/Vol] 102 mg/dL Normal 83 - 110 mg/dL AO ADM SS Hematocrit (Bld) [Volume fraction] 42.6 % Normal 34.0 - 46.0 % AO Workflow SS Hemoglobin (Bld) [Mass/Vol] 14.6 G/dL Normal 12.0 - 16.0 G/dL AO Workflow SS Lymphocytes (Bld) [#/Vol] 2.8 103/mcL Normal 0.9 - 4.3 10^3/mcL AO Workflow SS Lymphocytes/100 WBC (Bld) 36.3 % Normal 20.0 - 40.0 % AO Workflow SS MCH (RBC) [Entitic mass] 32.1 pg Normal 27.0 - 33.0 pg AO Workflow SS MCHC 34.3 G/dL Normal 32.0 - 36.0 G/dL AO Workflow SS MCV (RBC) [Entitic vol] 93.5 fL Normal 80.0 - 99.0 fL AO Workflow SS Monocytes (Bld) [#/Vol] 0.7 103/mcL Normal 0.1 - 1.4 10^3/mcL AO Workflow SS Monocytes/100 WBC (Bld) 9.5 % Normal 2.0 - 13.0 % AO Workflow SS Neutrophils (Bld) [#/Vol] 3.9 103/mcL Normal 2.3 - 8.1 10^3/mcL AO Workflow SS Neutrophils/100 WBC (Bld) 49.9 % Low 50.0 - 75.0 % AO Workflow SS Platelet mean volume (Bld) [Entitic vol] 8.4 fL Normal 6.6 - 10.5 fL AO Workflow SS Platelets (Bld) [#/Vol] 331 103/mcL Normal 150 - 450 10^3/mcL AO Workflow SS Potassium [Moles/Vol] 4.6 mmol/L Normal 3.5 - 5.1 mmol/L AO ADM SS Protein [Mass/Vol] 7.2 G/dL Normal 6.4 - 8.2 G/dL AO ADM SS RBC (Bld) [#/Vol] 4.56 106/mcL Normal 4.10 - 5.3 0 10^6/mcL AO Workflow SS Sodium [Moles/Vol] 141 mmol/L Normal 136 - 145 mmol/L AO ADM SS TSH Qn 0.80 m[IU]/L Normal 0.36 - 3.74 mcIU/mL AO ADM SS Urea nitrogen [Mass/Vol] 10 mg/dL Normal 7 - 18 mg/dL AO ADM SS Urea nitrogen/Creatinine [Mass ratio] 13 ratio Normal 7 - 27 ratio AO ADM SS WBC (Bld) [#/Vol] 7.8 103/mcL Normal 4.5 - 10.8 10^3/mcL AO Workflow SS LABORATORYOrdered By: Keena White on 02-01-2024 Cholesterol [Mass/Vol] 211 mg/dL High 0 - 200 mg/dL AO ADM SS Comment on above: Interpretive Data: C holesterol Reference Interval: Less than 200 Desirable 200-239 Borderline high risk 240 and above High risk Cholesterol in HDL [Mass/Vol] 48 mg/dL Normal 40 - 60 mg/dL AO ADM SS Cholesterol in LDL [Mass/Vol] 119 mg/dL Normal 0 - 130 mg/dL AO ADM SS Triglyceride [Mass/Vol] 222 mg/dL High 0 - 150 mg/dL AO ADM SS Comment on above: Interpretive Data: T riglyceride Reference Interval: Less than 150 Normal 150-199 Borderline high risk 200-499 High risk 500 or higher Very high risk LIPIDon 02-01-2024 Cholesterol [Mass/Vol] 211 mg/dL High 0-200 [facility] Comment on above: Result Comment: Chol esterol Reference Interval: Less than 200 Desirable 200-239 Borderline high risk 240 and above High risk Performed By: #### C BC, TSH, CMP, LIPID, ADIFF, ANEU, GFR #### [address] [place], [place] [address] Cholesterol in HDL [Mass/Vol] 48 mg/dL Normal 40-60 [facility] Comment on above: Performed By: #### C BC, TSH, CMP, LIPID, ADIFF, ANEU, GFR #### [address] [place], [place] [address] Cholesterol in LDL [Mass/Vol] 119 mg/dL Normal 0-130 [facility] Comment on above: Performed By: #### C BC, TSH, CMP, LIPID, ADIFF, ANEU, GFR #### [address] [place], [place] [address] Triglyceride [Mass/Vol] 222 mg/dL High 0-150 [facility] Comment on above: Result Comment: Trig lyceride Reference Interval: Less than 150 Normal 150-199 Borderline high risk 200-499 High risk 500 or higher Very high risk Performed By: #### C BC, TSH, CMP, LIPID, ADIFF, ANEU, GFR #### [address] [place], [place] [address] TSHon 02-01-2024 TSH Qn 0.80 m[IU]/L Normal 0.36-3.74 [facility] Comment on above: Performed By: #### C BC, TSH, CMP, LIPID, ADIFF, ANEU, GFR #### [address] [place], [place] [address] Absolute lymphocyte countOrd ered By: Sagar St on 01-06-2023 Lymphocytes Auto (Unsp spec) [#/Vol] 2.01 10*3/uL 0.83-4.51 [facility] Basophil percentageOrdered B y: Sagar St on 01-06-2023 Basophils/100 WBC (Bld) 0.9 % 0-1 [facility] Chloride [Moles/Vol] 107 mmol/L 98-107 [facility] Eosinophils/100 WBC (Bld) 2.0 % 0-5 [facility] Glucose [Mass/Vol] 104 mg/dL 74-106 [facility] Comment on above: Fasting Glucose resu lt from 100 to 125 mg/dL suggests IMPAIRED HOMEOSTASIS per A.D.A. criteria. Neutrophils (Bld) [#/Vol] 5.2 10*3/uL 2.0-7.7 [facility] Neutrophils/100 WBC (Bld) 65.5 % 47-70 [facility] Potassium [Moles/Vol] 4.0 mmol/L 3.5-5.1 [facility] Sodium [Moles/Vol] 136 mmol/L 136-145 [facility] WBC (Bld) [#/Vol] 8.0 10*3/uL 4.4-11.0 [facility] Blood erythrocytes count (nu mber/volume)Ordered By: Sagar St on 01-06-2023 RBC (Bld) [#/Vol] 4.64 10*6/uL 4.2-5.4 [facility] Blood hemoglobin measurement (mass/volume)Ordered By: Sagar St on 01-06-2023 Hemoglobin (Bld) [Mass/Vol] 14.6 g/dL 12.0-15.0 [facility] Blood lymphocytes/100 leukoc ytesOrdered By: Sagar St on 01-06-2023 Lymphocytes/100 WBC (Bld) 25.2 % 19-41 [facility] Blood monocytes/100 leukocyt esOrdered By: Sagar St on 01-06-2023 Monocytes/100 WBC (Bld) 6.0 % 0-10 [facility] Blood platelet mean volumeOr dered By: Sagar St on 01-06-2023 Platelet mean volume (Bld) [Entitic vol] 9.8 fL 6.2-12.0 [facility] Determination of erythrocyte mean corpuscular volume (MCV)Ordered By: Sagar St on 01-06-2023 MCV (RBC) [Entitic vol] 91.8 fL 81-99 [facility] Hematocrit Auto (Bld) [Volum e fraction]Ordered By: Sagar St on 01-06-2023 Hematocrit (Bld) [Volume fraction] 42.6 % 37-47 [facility] Laboratory - Chemistry and C hemistry - challengeOrdered By: Sagar St on 01-06-2023 CO2 [Moles/Vol] 23.0 mmol/L 21.0-32.0 [facility] Urea nitrogen/Creatinine [Mass ratio] 17.8 mg/mg 10-20 [facility] Laboratory - Hematology and Cell countsOrdered By: Sagar St on 01-06-2023 Erythrocyte distribution width (RBC) [Entitic vol] 45.0 fL 35.1-43.9 [facility] Erythrocyte distribution width (RBC) [Ratio] 13.2 % 11.6-14.6 [facility] Immature granulocytes/100 WBC (Bld) 0.400 % 0.0-0.9 [facility] Comment on above: IG% - Immature Granu locytes (promyelocytes, myelocytes and metamyelocytes) > 1% indicates that a LEFT SHIFT is Present. MCH (RBC) [Entitic mass] 31.5 pg 27.0-32.0 [facility] Nucleated RBC/100 WBC (Bld) [Ratio] 0 % 0-5 [facility] MCHC Auto (RBC) [Mass/Vol]Or dered By: Sagar St on 01-06-2023 MCHC (RBC) [Mass/Vol] 34.3 g/dL 32-36 [facility] No Panel InformationOrdered By: Sagar St on 01-06-2023 Estimated Creatinine Clearance Calc 50.84 ml/min [facility] Estimated GFR (MDRD) Amer 79 mL/min >60 [facility] Comment on above: GFR Calc Estimated GFR (MDRD) Non-Af Amer 66 mL/min >60 [facility] Comment on above: Non- GFR Calc Platelets bldOrdered By: Aaron St on 01-06-2023 Platelets (Bld) [#/Vol] 296 10*3/uL 150-450 [facility] Serum or plasma calcium renee urement (mass/volume)Ordered By: Sagar St on 01-06-2023 Calcium [Mass/Vol] 9.3 mg/dL 8.5-10.1 [facility] Serum or plasma creatinine m easurement (mass/volume)Ordered By: Sagar St on 01-06-2023 Creatinine [Mass/Vol] 0.90 mg/dL 0.55-1.02 [facility] Comment on above: The validity of the calculated GFR & GFRAA in patients over 70 years has not been determined. Clinical correlation is essential. Serum or plasma urea nitroge n measurement (mass/volume)Ordered By: Sagar St on 01-06-2023 Urea nitrogen [Mass/Vol] 16 mg/dL 7-18 [facility] Thin prep Papanicolaou smear with manual screeningOrdered By: Sagar St on 01-06-2023 Thin prep Papanicolaou smear with manual screening 6 5-15 [facility] .Auto Diffon 12-16-2022 Basophil, Absolute 0.1 10 3/mcL Normal 0.0-0.3 [facility] ([place]) Comment on above: Performed By: #### B MP, ANEU, GFR, CBC, ADIFF #### [address] [address] Basophils/100 WBC (Bld) 1.1 % Normal 0.0-2.5 [facility] ([place]) Comment on above: Performed By: #### B MP, ANEU, GFR, CBC, ADIFF #### [address] [address] Eosinophil, Absolute 0.3 10 3/mcL Normal 0.0-0.7 [facility] ([place]) Comment on above: Performed By: #### B MP, ANEU, GFR, CBC, ADIFF #### [address] [address] Eosinophils/100 WBC (Bld) 3.3 % Normal 0.0-6.0 [facility] ([place]) Comment on above: Performed By: #### B MP, ANEU, GFR, CBC, ADIFF #### [address] [address] Lymphocyte, Absolute 2.1 10 3/mcL Normal 0.9-4.3 [facility] ([place]) Comment on above: Performed By: #### B MP, ANEU, GFR, CBC, ADIFF #### [address] [address] Lymphocytes/100 WBC (Bld) 25.7 % Normal 20.0-40.0 [facility] ([place]) Comment on above: Performed By: #### B MP, ANEU, GFR, CBC, ADIFF #### [address] [address] Monocyte, Absolute 0.7 10 3/mcL Normal 0.1-1.4 [facility] ([place]) Comment on above: Performed By: #### B MP, ANEU, GFR, CBC, ADIFF #### [address] [address] Monocytes/100 WBC (Bld) 8.4 % Normal 2.0-13.0 [facility] ([place]) Comment on above: Performed By: #### B MP, ANEU, GFR, CBC, ADIFF #### [address] [address] Neutrophils/100 WBC (Bld) 61.5 % Normal 50.0-75.0 [facility] ([place]) Comment on above: Performed By: #### B MP, ANEU, GFR, CBC, ADIFF #### [address] [address] .GFRon 12-16-2022 GFR >60 Normal [facility] ([place]) Comment on above: Result Comment: GFR Population mean for , Non- Americans Ages 20-29 = 116 mL/min/1.73 sq.m. Ages 30-39 = 107 mL/min/1.73 sq.m. Ages 40-49 = 99 mL/min/1.73 sq.m. Ages 50-59 = 93 mL/min/1.73 sq.m. Ages 60-69 = 85 mL/min/1.73 sq.m. Ages 70+ = 75 mL/min/1.73 sq.m. Chronic Kidney Disease: Less than 60 mL/min/1.73 square meters End Stage Renal Disease: Less than 15 mL/min/1.73 square meters Performed By: #### B MP, ANEU, GFR, CBC, ADIFF #### [address] [address] GFR Non- >60 Normal [facility] ([place]) Comment on above: Result Comment: GFR Population mean for , Non- Americans Ages 20-29 = 116 mL/min/1.73 sq.m. Ages 30-39 = 107 mL/min/1.73 sq.m. Ages 40-49 = 99 mL/min/1.73 sq.m. Ages 50-59 = 93 mL/min/1.73 sq.m. Ages 60-69 = 85 mL/min/1.73 sq.m. Ages 70+ = 75 mL/min/1.73 sq.m. Chronic Kidney Disease: Less than 60 mL/min/1.73 square meters End Stage Renal Disease: Less than 15 mL/min/1.73 square meters Performed By: #### B MP, ANEU, GFR, CBC, ADIFF #### [address] [address] .NEUABSon 12-16-2022 Neutrophil, Absolute 4.9 10 3/mcL Normal 2.3-8.1 [facility] ([place]) Comment on above: Performed By: #### B MP, ANEU, GFR, CBC, ADIFF #### [address] [address] BMPon 12-16-2022 BUN/Creatinine Ratio 23.4 ratio High 10.0-22.0 [facility] ([place]) Comment on above: Performed By: #### B MP, ANEU, GFR, CBC, ADIFF #### [address] [address] Calcium [Mass/Vol] 10.1 mg/dL Normal 8.7-10.4 [facility] ([place]) Comment on above: Performed By: #### B MP, ANEU, GFR, CBC, ADIFF #### [address] [address] Chloride [Moles/Vol] 106 mmol/L Normal 98-110 [facility] ([place]) Comment on above: Performed By: #### B MP, ANEU, GFR, CBC, ADIFF #### [address] [address] CO2 [Moles/Vol] 30 mmol/L Normal 22-32 [facility] ([place] Comment on above: Performed By: #### B MP, ANEU, GFR, CBC, ADIFF #### [address] [address] Creatinine [Mass/Vol] 0.64 mg/dL Normal 0.50-1.20 [facility] ([place]) Comment on above: Performed By: #### B MP, ANEU, GFR, CBC, ADIFF #### [place] [id number] Electrolyte Balance 2.0 mEq/L Low 4.0-15.0 [facility] ([place]) Comment on above: Performed By: #### B MP, ANEU, GFR, CBC, ADIFF #### [place] [id number] Glucose [Mass/Vol] 111 mg/dL Normal 82-115 [facility] ([place]) Comment on above: Performed By: #### B MP, ANEU, GFR, CBC, ADIFF #### [place] [address] Potassium [Moles/Vol] 4.3 mmol/L Normal 3.5-5.0 [facility] ([place]) Comment on above: Performed By: #### B MP, ANEU, GFR, CBC, ADIFF #### [place] [address] Sodium [Moles/Vol] 138 mmol/L Normal 136-145 [facility] ([place]) Comment on above: Performed By: #### B MP, ANEU, GFR, CBC, ADIFF #### [place] [address] Urea nitrogen [Mass/Vol] 15.0 mg/dL Normal 8.0-22.0 [facility] ([place]) Comment on above: Performed By: #### B MP, ANEU, GFR, CBC, ADIFF #### [address] [address] CBCon 12-16-2022 Erythrocyte distribution width (RBC) [Ratio] 14.1 % Normal 11.5-15.5 [facility] ([place]) Comment on above: Performed By: #### B MP, ANEU, GFR, CBC, ADIFF #### [place] [id number] Hematocrit (Bld) [Volume fraction] 45.2 % Normal 34.0-46.0 [facility] ([place]) Comment on above: Performed By: #### B MP, ANEU, GFR, CBC, ADIFF #### [place] [address] Hgb 15.1 G/dL Normal 12.0-16.0 [facility] ([place]) Comment on above: Performed By: #### B MP, ANEU, GFR, CBC, ADIFF #### [place] [address] MCH (RBC) [Entitic mass] 31.6 pg Normal 27.0-33.0 [facility] ([place] Comment on above: Performed By: #### B MP, ANEU, GFR, CBC, ADIFF #### [place] [address] MCHC 33.4 G/dL Normal 32.0-36.0 [facility] ([place]) Comment on above: Performed By: #### B MP, ANEU, GFR, CBC, ADIFF #### [place] [address] MCV (RBC) [Entitic vol] 94.6 fL Normal 80.0-99.0 [facility] ([place] Comment on above: Performed By: #### B MP, ANEU, GFR, CBC, ADIFF #### [place] [address] Platelet 331 10 3/mcL Normal 150-450 [facility] [place] Comment on above: Performed By: #### B MP, ANEU, GFR, CBC, ADIFF #### [place] [address] Platelet mean volume (Bld) [Entitic vol] 8.8 fL Normal 6.6-10.5 [facility] [place]) Comment on above: Performed By: #### B MP, ANEU, GFR, CBC, ADIFF #### [place] [address] RBC 4.78 10 6/mcL Normal 4.10-5.30 [facility] ([place]) Comment on above: Performed By: #### B MP, ANEU, GFR, CBC, ADIFF #### [address] [address] WBC 8.0 10 3/mcL Normal 4.5-10.8 [facility] ([place]) Comment on above: Performed By: #### B MP, ANEU, GFR, CBC, ADIFF #### [address] [address] IR ARTERIOGRAM EXTREMITY MIKE ATERAL LOWERon 12-16-2022 IR ARTERIOGRAM EXTREMITY BILATERAL LOWER ORIGINAL Images acquired, not reported on this accession number. Normal [facility] ([place]) LABORATORYOrdered By: SYSTEM SYSTEM on 12-16-2022 Basophils (Bld) [#/Vol] 0.1 103/mcL Invalid Interpretation Code 0.0 - 0.3 10^3/mcL Workflow SS Basophils/100 WBC (Bld) 1.1 % Invalid Interpretation Code 0.0 - 2.5 % Workflow SS Calcium [Mass/Vol] 10.1 mg/dL Invalid Interpretation Code 8.7 - 10.4 mg/dL ADM SS Chloride [Moles/Vol] 106 mmol/L Invalid Interpretation Code 98 - 110 mEq/L ADM SS CO2 [Moles/Vol] 30 mmol/L Invalid Interpretation Code 22 - 32 mEq/L ADM SS Creatinine [Mass/Vol] 0.64 mg/dL Invalid Interpretation Code 0.50 - 1.20 mg/dL ADM SS Electrolyte Balance 2.0 mEq/L Invalid Interpretation Code 4.0 - 15.0 mEq/L ADM SS Eosinophils (Bld) [#/Vol] 0.3 103/mcL Invalid Interpretation Code 0.0 - 0.7 10^3/mcL AH Workflow SS Eosinophils/100 WBC (Bld) 3.3 % Invalid Interpretation Code 0.0 - 6.0 % Workflow SS Erythrocyte distribution width (RBC) [Ratio] 14.1 % Invalid Interpretation Code 11.5 - 15.5 % Workflow SS GFR/1.73 sq M.predicted among blacks MDRD (S/P/Bld) [Vol rate/Area] ml/min/1.73sqm Invalid Interpretation Code Chemistry S Comment on above: Interpretive Data: GFR Population mean for , Non- Americans Ages 20-29 = 116 mL/min/1.73 sq.m. Ages 30-39 = 107 mL/min/1.73 sq.m. Ages 40-49 = 99 mL/min/1.73 sq.m. Ages 50-59 = 93 mL/min/1.73 sq.m. Ages 60-69 = 85 mL/min/1.73 sq.m. Ages 70+ = 75 mL/min/1.73 sq.m. Chronic Kidney Disease: Less than 60 mL/min/1.73 square meters End Stage Renal Disease: Less than 15 mL/min/1.73 square meters GFR/1.73 sq M.predicted among non-blacks MDRD (S/P/Bld) [Vol rate/Area] ml/min/1.73sqm Invalid Interpretation Code Chemistry S Comment on above: Interpretive Data: GFR Population mean for , Non- Americans Ages 20-29 = 116 mL/min/1.73 sq.m. Ages 30-39 = 107 mL/min/1.73 sq.m. Ages 40-49 = 99 mL/min/1.73 sq.m. Ages 50-59 = 93 mL/min/1.73 sq.m. Ages 60-69 = 85 mL/min/1.73 sq.m. Ages 70+ = 75 mL/min/1.73 sq.m. Chronic Kidney Disease: Less than 60 mL/min/1.73 square meters End Stage Renal Disease: Less than 15 mL/min/1.73 square meters Glucose [Mass/Vol] 111 mg/dL Invalid Interpretation Code 82 - 115 mg/dL ADM SS Hematocrit (Bld) [Volume fraction] 45.2 % Invalid Interpretation Code 34.0 - 46.0 % Workflow SS Hemoglobin (Bld) [Mass/Vol] 15.1 G/dL Invalid Interpretation Code 12.0 - 16.0 G/dL Workflow SS Lymphocytes (Bld) [#/Vol] 2.1 103/mcL Invalid Interpretation Code 0.9 - 4.3 10^3/mcL Workflow SS Lymphocytes/100 WBC (Bld) 25.7 % Invalid Interpretation Code 20.0 - 40.0 % Workflow SS MCH (RBC) [Entitic mass] 31.6 pg Invalid Interpretation Code 27.0 - 33.0 pg Workflow SS MCHC 33.4 G/dL Invalid Interpretation Code 32.0 - 36.0 G/dL Workflow SS MCV (RBC) [Entitic vol] 94.6 fL Invalid Interpretation Code 80.0 - 99.0 fL AH Workflow SS Monocytes (Bld) [#/Vol] 0.7 103/mcL Invalid Interpretation Code 0.1 - 1.4 10^3/mcL AH Workflow SS Monocytes/100 WBC (Bld) 8.4 % Invalid Interpretation Code 2.0 - 13.0 % AH Workflow SS Neutrophils (Bld) [#/Vol] 4.9 103/mcL Invalid Interpretation Code 2.3 - 8.1 10^3/mcL AH Workflow SS Neutrophils/100 WBC (Bld) 61.5 % Invalid Interpretation Code 50.0 - 75.0 % AH Workflow SS Platelet mean volume (Bld) [Entitic vol] 8.8 fL Invalid Interpretation Code 6.6 - 10.5 fL AH Workflow SS Platelets (Bld) [#/Vol] 331 103/mcL Invalid Interpretation Code 150 - 450 10^3/mcL AH Workflow SS Potassium [Moles/Vol] 4.3 mmol/L Invalid Interpretation Code 3.5 - 5.0 mEq/L AH ADM SS RBC (Bld) [#/Vol] 4.78 106/mcL Invalid Interpretation Code 4.10 - 5.30 10^6/mcL AH Workflow SS Sodium [Moles/Vol] 138 mmol/L Invalid Interpretation Code 136 - 145 mEq/L AH ADM SS Urea nitrogen [Mass/Vol] 15.0 mg/dL Invalid Interpretation Code 8.0 - 22.0 mg/dL AH ADM SS Urea nitrogen/Creatinine [Mass ratio] 23.4 ratio Invalid Interpretation Code 10.0 - 22.0 ratio AH ADM SS WBC (Bld) [#/Vol] 8.0 103/mcL Invalid Interpretation Code 4.5 - 10.8 10^3/mcL AH Workflow SS No Panel InformationOrdered By: Dr. Boss on 03-31-2022 Troponin I High Sensitivity 7 pg/mL 3.0-54.0 [facility] Comment on above: Please Note: New Maeve t Units and Gender Specific Reference Ranges. For more information see Policy Stat Procedure [place] High Sensitivity Troponin (TNIH) and attachments. Absolute lymphocyte countOrd ered By: Dr. Boss on 03-30-2022 Lymphocytes Auto (Unsp spec) [#/Vol] 1.93 10*3/uL 0.83-4.51 [facility] Basophil percentageOrdered B y: Dr. Boss on 03-30-2022 Basophils/100 WBC (Bld) 1.1 % 0-1 [facility] Chloride [Moles/Vol] 112 mmol/L 98-107 [facility] Eosinophils/100 WBC (Bld) 2.1 % 0-5 [facility] Glucose [Mass/Vol] 101 mg/dL 74-106 [facility] Comment on above: Fasting Glucose resu lt from 100 to 125 mg/dL suggests IMPAIRED HOMEOSTASIS per A.D.A. criteria. Neutrophils (Bld) [#/Vol] 6.3 10*3/uL 2.0-7.7 [facility] Neutrophils/100 WBC (Bld) 68.1 % 47-70 [facility] Potassium [Moles/Vol] 4.1 mmol/L 3.5-5.1 [facility] Sodium [Moles/Vol] 141 mmol/L 136-145 [facility] WBC (Bld) [#/Vol] 9.2 10*3/uL 4.4-11.0 [facility] Blood erythrocytes count (nu mber/volume)Ordered By: Dr. Boss on 03-30-2022 RBC (Bld) [#/Vol] 4.39 10*6/uL 4.2-5.4 [facility] Blood hemoglobin measurement (mass/volume)Ordered By: Dr. Boss on 03-30-2022 Hemoglobin (Bld) [Mass/Vol] 14.2 g/dL 12.0-15.0 [facility] Blood lymphocytes/100 leukoc ytesOrdered By: Dr. Boss on 03-30-2022 Lymphocytes/100 WBC (Bld) 20.9 % 19-41 [facility] Blood monocytes/100 leukocyt esOrdered By: Dr. Boss on 03-30-2022 Monocytes/100 WBC (Bld) 7.4 % 0-10 [facility] Blood platelet mean volumeOr dered By: Dr. Boss on 03-30-2022 Platelet mean volume (Bld) [Entitic vol] 10.0 fL 6.2-12.0 [facility] Determination of erythrocyte mean corpuscular volume (MCV)Ordered By: Dr. Boss on 03-30-2022 MCV (RBC) [Entitic vol] 95.7 fL 81-99 [facility] Hematocrit Auto (Bld) [Volum e fraction]Ordered By: Dr. Boss on 03-30-2022 Hematocrit (Bld) [Volume fraction] 42.0 % 37-47 [facility] INR in Blood by Coagulation assayOrdered By: Dr. Boss on 03-30-2022 INR Coag (Bld) [Relative time] 1.0 {INR} [facility] Laboratory - Chemistry and C hemistry - challengeOrdered By: Dr. Boss on 03-30-2022 CO2 [Moles/Vol] 24.0 mmol/L 21.0-32.0 [facility] Urea nitrogen/Creatinine [Mass ratio] 27.0 mg/mg 10-20 [facility] Laboratory - CoagulationOrde red By: Dr. Boss on 03-30-2022 PT Coag (PPP) [Time] 12.9 s 11.7-14.9 [facility] - Hematology and Cell countsOrdered By: Dr. Boss on 03-30-2022 Erythrocyte distribution width (RBC) [Entitic vol] 45.3 fL 35.1-43.9 [facility] Erythrocyte distribution width (RBC) [Ratio] 13.0 % 11.6-14.6 [facility] Immature granulocytes/100 WBC (Bld) 0.400 % 0.0-0.9 [facility] Comment on above: IG% - Immature Granu locytes (promyelocytes, myelocytes and metamyelocytes) > 1% indicates that a LEFT SHIFT is Present. MCH (RBC) [Entitic mass] 32.3 pg 27.0-32.0 [facility] Nucleated RBC/100 WBC (Bld) [Ratio] 0 % 0-5 [facility] MCHC Auto (RBC) [Mass/Vol]Or dered By: Dr. Boss on 03-30-2022 MCHC (RBC) [Mass/Vol] 33.8 g/dL 32-36 [facility] No Panel InformationOrdered By: Dr. Boss on 03-30-2022 Estimated Creatinine Clearance Calc 46.43 ml/min [facility] Estimated GFR (MDRD) Amer 105 mL/min >60 [facility] Comment on above: GFR Calc Estimated GFR (MDRD) Non-Af Amer 87 mL/min >60 [facility] Comment on above: Non- GFR Calc Platelets bldOrdered By: Dr. Boss on 03-30-2022 Platelets (Bld) [#/Vol] 324 10*3/uL 150-450 [facility] Serum or plasma calcium renee urement (mass/volume)Ordered By: Dr. Boss on 03-30-2022 Calcium [Mass/Vol] 9.3 mg/dL 8.5-10.1 [facility] Serum or plasma creatinine m easurement (mass/volume)Ordered By: Dr. Boss on 03-30-2022 Creatinine [Mass/Vol] 0.70 mg/dL 0.55-1.02 [facility] Comment on above: The validity of the calculated GFR & GFRAA in patients over 70 years has not been determined. Clinical correlation is essential. Serum or plasma urea nitroge n measurement (mass/volume)Ordered By: Dr. Boss on 03-30-2022 Urea nitrogen [Mass/Vol] 19 mg/dL 7-18 [facility] Thin prep Papanicolaou smear with manual screeningOrdered By: Dr. Boss on 03-30-2022 Thin prep Papanicolaou smear with manual screening 5 06-27 [facility] LABORATORYOrdered By: SYSTEM SYSTEM on 03-22-2022 TSH Qn 2.85 m[IU]/L Invalid Interpretation Code 0.36 - 3.74 mcIU/mL AO ADM SS TSHon 03-22-2022 TSH Qn 2.85 m[IU]/L Normal 0.36-3.74 [facility] Comment on above: Performed By: #### T #### [place] [address] LABORATORYOrdered By: Amber Lara on 09-01-2021 Albumin BCP dye [Mass/Vol] 4.2 G/dL Invalid Interpretation Code 3.4 - 4.8 G/dL AO ADM SS Albumin/Globulin [Mass ratio] 1.2 {ratio} Invalid Interpretation Code 1.1 - 2.5 ratio AO ADM SS ALP [Catalytic activity/Vol] 200 U/L Invalid Interpretation Code 40 - 135 U/L AO ADM SS AST With P-5'-P [Catalytic activity/Vol] 59 U/L Invalid Interpretation Code 10 - 40 U/L AO ADM SS Bilirubin [Mass/Vol] 0.9 mg/dL Invalid Interpretation Code 0.2 - 1.0 mg/dL AO ADM SS Calcium [Mass/Vol] 9.9 mg/dL Invalid Interpretation Code 8.4 - 10.2 mg/dL AO ADM SS Chloride [Moles/Vol] 106 mmol/L Invalid Interpretation Code 98 - 107 mmol/L AO ADM SS Cholesterol [Mass/Vol] 203 mg/dL Invalid Interpretation Code 0 - 200 mg/dL AO ADM SS Cholesterol in HDL [Mass/Vol] 46 mg/dL Invalid Interpretation Code 40 - 60 mg/dL AO ADM SS Cholesterol in LDL [Mass/Vol] 115 mg/dL Invalid Interpretation Code 0 - 130 mg/dL AO ADM SS CO2 [Moles/Vol] 26 mmol/L Invalid Interpretation Code 23 - 31 mmol/L AO ADM SS Creatinine [Mass/Vol] 0.81 mg/dL Invalid Interpretation Code 0.55 - 1.02 mg/dL AO ADM SS Electrolyte Balance 9.0 mEq/L Invalid Interpretation Code 4.0 - 15.0 mEq/L AO ADM SS Globulin 3.4 G/dL Invalid Interpretation Code AO ADM SS Glucose [Mass/Vol] 99 mg/dL Invalid Interpretation Code 83 - 110 mg/dL AO ADM SS Potassium [Moles/Vol] 4.7 mmol/L Invalid Interpretation Code 3.5 - 5.1 mmol/L AO ADM SS Protein [Mass/Vol] 7.6 G/dL Invalid Interpretation Code 6.4 - 8.2 G/dL AO ADM SS Sodium [Moles/Vol] 141 mmol/L Invalid Interpretation Code 136 - 145 mmol/L AO ADM SS Triglyceride [Mass/Vol] 209 mg/dL Invalid Interpretation Code 0 - 150 mg/dL AO ADM SS TSH Qn 6.12 m[IU]/L Invalid Interpretation Code 0.36 - 3.74 mcIU/mL AO ADM SS Urea nitrogen [Mass/Vol] 13 mg/dL Invalid Interpretation Code 7 - 18 mg/dL AO ADM SS Urea nitrogen/Creatinine [Mass ratio] 16 ratio Invalid Interpretation Code 7 - 27 ratio AO ADM SS LABORATORYOrdered By: SYSTEM SYSTEM on 09-01-2021 GFR 85 ml/min/1.73sqm Invalid Interpretation Code AO Chemistry S GFR Non- 70 ml/min/1.73sqm Invalid Interpretation Code AO Chemistry S LABORATORYOrdered By: Cheryle Rangel on 03-16-2021 Albumin BCP dye [Mass/Vol] 3.9 G/dL Invalid Interpretation Code 3.4 - 4.8 G/dL AO ADM SS Albumin/Globulin [Mass ratio] 1.0 {ratio} Invalid Interpretation Code 1.1 - 2.5 ratio AO ADM SS ALP [Catalytic activity/Vol] 196 U/L Invalid Interpretation Code 40 - 135 U/L AO ADM SS ALT With P-5'-P [Catalytic activity/Vol] 58 U/L Invalid Interpretation Code 14 - 59 U/L AO ADM SS AST With P-5'-P [Catalytic activity/Vol] 48 U/L Invalid Interpretation Code 10 - 40 U/L AO ADM SS Bilirubin [Mass/Vol] 1.2 mg/dL Invalid Interpretation Code 0.2 - 1.0 mg/dL AO ADM SS Calcium [Mass/Vol] 9.7 mg/dL Invalid Interpretation Code 8.4 - 10.2 mg/dL AO ADM SS Chloride [Moles/Vol] 103 mmol/L Invalid Interpretation Code 98 - 107 mmol/L AO ADM SS CO2 [Moles/Vol] 25 mmol/L Invalid Interpretation Code 23 - 31 mmol/L AO ADM SS Creatinine [Mass/Vol] 0.75 mg/dL Invalid Interpretation Code 0.55 - 1.02 mg/dL AO ADM SS Electrolyte Balance 11.0 mEq/L Invalid Interpretation Code 4.0 - 15.0 mEq/L AO ADM SS Globulin 3.8 G/dL Invalid Interpretation Code AO ADM SS Glucose [Mass/Vol] 114 mg/dL Invalid Interpretation Code 83 - 110 mg/dL AO ADM SS Potassium [Moles/Vol] 4.4 mmol/L Invalid Interpretation Code 3.5 - 5.1 mmol/L AO ADM SS Protein [Mass/Vol] 7.7 G/dL Invalid Interpretation Code 6.4 - 8.2 G/dL AO ADM SS Sodium [Moles/Vol] 139 mmol/L Invalid Interpretation Code 136 - 145 mmol/L AO ADM SS Urea nitrogen [Mass/Vol] 10 mg/dL Invalid Interpretation Code 7 - 18 mg/dL AO ADM SS Urea nitrogen/Creatinine [Mass ratio] 13 ratio Invalid Interpretation Code 7 - 27 ratio AO ADM SS LABORATORYOrdered By: Zoya Mason on 03-16-2021 Basophil, Absolute 0.10 103/mcL Invalid Interpretation Code 0.00 - 0.19 10^3/mcL AO Auto Heme SS Basophils/100 WBC (Bld) 0.9 % Invalid Interpretation Code 0.0 - 2.5 % AO Auto Heme SS Eosinophil, Absolute 0.20 103/mcL Invalid Interpretation Code 0.00 - 0.40 10^3/mcL AO Auto Heme SS Eosinophils/100 WBC (Bld) 2.3 % Invalid Interpretation Code 0.0 - 7.0 % AO Auto Heme SS Erythrocyte distribution width (RBC) [Ratio] 14.4 % Invalid Interpretation Code 11.5 - 14.5 % AO Auto Heme SS Hematocrit (Bld) [Volume fraction] 43.9 % Invalid Interpretation Code 37.0 - 47.0 % AO Auto Heme SS Hemoglobin (Bld) [Mass/Vol] 14.9 G/dL Invalid Interpretation Code 12.0 - 16.0 G/dL AO Auto Heme SS Lymphocyte, Absolute 1.40 103/mcL Invalid Interpretation Code 0.77 - 3.85 10^3/mcL AO Auto Heme SS Lymphocytes/100 WBC (Bld) 15.7 % Invalid Interpretation Code 10.0 - 50.0 % AO Auto Heme SS MCH (RBC) [Entitic mass] 31.4 pg Invalid Interpretation Code 27.0 - 31.2 pg AO Auto Heme SS MCHC (RBC) [Mass/Vol] 34.0 G/dL Invalid Interpretation Code 33.0 - 37.0 G/dL AO Auto Heme SS MCV (RBC) [Entitic vol] 92.2 fL Invalid Interpretation Code 80.0 - 94.0 fL AO Auto Heme SS Monocyte, Absolute 0.70 103/mcL Invalid Interpretation Code 0.15 - 1.00 10^3/mcL AO Auto Heme SS Monocytes/100 WBC (Bld) 7.7 % Invalid Interpretation Code 1.7 - 13.0 % AO Auto Heme SS Neutrophil, Absolute 6.40 103/mcL Invalid Interpretation Code 2.85 - 6.16 10^3/mcL AO Auto Heme SS Neutrophils/100 WBC (Bld) 73.4 % Invalid Interpretation Code 37.0 - 80.0 % AO Auto Heme SS Platelet mean volume (Bld) [Entitic vol] 9.0 fL Invalid Interpretation Code 7.4 - 10.4 fL AO Auto Heme SS Platelets (Bld) [#/Vol] 360 103/mcL Invalid Interpretation Code 130 - 400 10^3/mcL AO Auto Heme SS RBC (Bld) [#/Vol] 4.76 106/mcL Invalid Interpretation Code 4.20 - 5.40 10^6/mcL AO Auto Heme SS WBC (Bld) [#/Vol] 8.70 103/mcL Invalid Interpretation Code 4.60 - 10.80 10^3/mcL AO Auto Heme SS LABORATORYOrdered By: SYSTEM SYSTEM on 03-16-2021 GFR 93 ml/min/1.73sqm Invalid Interpretation Code AO Chemistry S GFR Non- 76 ml/min/1.73sqm Invalid Interpretation Code AO Chemistry S No Panel Informationon 03-16 Culture Urine 10,000 - 50,000 cfu/ml Mixed growth consistent with normal urogenital [facility] BMPon 11-24-2020 Anion gap [Moles/Vol] 9 mmol/L Normal 5-16 [facility] Comment on above: Order Comment: Campu s: M Performed By: #### L [id number], L500.54018 #### [facility] [address] [place] [address] Calcium [Mass/Vol] 9.6 mg/dL Normal 8.5-10.5 [facility] Comment on above: Order Comment: Campu s: M Result Comment: NOTE NEW NORMAL RANGE DUE TO REAGENT CHANGE Performed By: #### L [id number], L500.61032 #### [facility] [address] [place] [address] Chloride [Moles/Vol] 110 mmol/L High 98-107 [facility] Comment on above: Order Comment: Campu s: M Performed By: #### L 500.71563, L500.15483 #### [facility] [address] [place] [address] CO2 [Moles/Vol] 25.0 mmol/L Normal 21-32 [facility] Comment on above: Order Comment: Campu s: M Performed By: #### L 500.64770, L500.39572 #### [facility] [address] [place] [address] Creatinine [Mass/Vol] 0.61 mg/dL Normal 0.510-0.950 [facility] Comment on above: Order Comment: Fahadu s: M Result Comment: Shania ents receiving either N-Acetylcysteine (NAC) or Metamizole prior to venipuncture, may have falsely depressed results. Performed By: #### L 500.03058, L500.91622 #### [facility] [address] [place] [address] Glucose [Mass/Vol] 108 mg/dL High 70-100 [facility] Comment on above: Order Comment: Fahadu s: M Result Comment: 70-1 00- Normal Fasting; 100-125 Impaired Fasting; greater than 126 on more than one result- Diabetes. ADA guidelines. Results may be falsely elevated after the administration of Sulfapyridine. Results may be falsely depressed after the administration of Sulfasalazine. Performed By: #### L 500.50759, L500.61836 #### [facility] [address] [place] [address] Potassium [Moles/Vol] 3.8 mmol/L Normal 3.5-5.1 [facility] Comment on above: Order Comment: Fahadu s: M Result Comment: Slig ht Hemolysis, Result may be affected. Performed By: #### L 500.32186, L500.26224 #### [facility] [address] [place] [address] Sodium [Moles/Vol] 144 mmol/L Normal 136-145 [facility] Comment on above: Order Comment: Denny s: M Performed By: #### L 500.13969, L500.46457 #### [facility] [place] [address] Urea nitrogen [Mass/Vol] 12 mg/dL Normal 7-26 [facility] Comment on above: Order Comment: Campu s: M Performed By: #### L 500.21842, L500.48104 #### [facility] [address] [place] [address] Urea nitrogen/Creatinine [Mass ratio] 20 mg/mg Normal 15-24 [facility] Comment on above: Order Comment: Campu s: M Performed By: #### L 500.07924, L500.31340 #### [facility] [address] [place] [address] CBC W/DIFFon 11-24-2020 BASO ABS 0.10 K/CU MM Normal 0-0.2 [facility] Comment on above: Order Comment: Campu s: M Performed By: #### L 200.07710 #### [facility] [address] [place] [address] Basophils/100 WBC (Bld) 1.0 % Normal 0-2 [facility] Comment on above: Order Comment: Campu s: M Performed By: #### L [id number] #### [facility] [address] [place] [address] EOS ABS 0.20 K/CU MM Normal 0-0.5 [facility] Comment on above: Order Comment: Campu s: M Performed By: #### L [id number] #### [facility] [address] [place] [address] Eosinophils/100 WBC (Bld) 3.0 % Normal 0-5 [facility] Comment on above: Order Comment: Campu s: M Performed By: #### L [id number] #### [facility] [address] [place] [address] Erythrocyte distribution width (RBC) [Ratio] 13.4 % Normal 11-14.5 [facility] Comment on above: Order Comment: Campu s: M Performed By: #### L [id number] #### [facility] [address] [place] [address] Hematocrit (Bld) [Volume fraction] 41.4 % Normal 35.0-47.0 [facility] Comment on above: Order Comment: Campu s: M Performed By: #### L 200.45766 #### [facility] [address] [place] [address] Hemoglobin (Bld) [Mass/Vol] 14.2 g/dL Normal 11.5-15.5 [facility] Comment on above: Order Comment: Campu s: M Performed By: #### L 200.75679 #### [facility] [address] [place] [address] IMMATR GRAN ABS 0.00 K/CU MM Normal Less than 2 [facility] Comment on above: Order Comment: Campu s: M Performed By: #### L [id number] #### [facility] [address] [place] [address] IMMATURE GRAN % 0.3 % Normal Less than 2 [facility] Comment on above: Order Comment: Campu s: M Performed By: #### L 200.26774 #### [facility] [address] [place] [address] LYMPH ABS 2.10 K/CU MM Normal 0.9-4.4 [facility] Comment on above: Order Comment: Campu s: M Performed By: #### L [id number] #### [facility] [address] [place] [address] Lymphocytes/100 WBC (Bld) 28.1 % Normal 20-40 [facility] Comment on above: Order Comment: Campu s: M Performed By: #### L [id number] #### [facility] [address] [place] [address] MCHC (RBC) [Mass/Vol] 34.3 g/dL Normal 32.0-36.0 [facility] Comment on above: Order Comment: Campu s: M Performed By: #### L [id number] #### [facility] [address] [place] [address] MCV (RBC) [Entitic vol] 93.5 fL Normal 80.0-99.0 [facility] Comment on above: Order Comment: Campu s: M Performed By: #### L [id number] #### [facility] [address] [place] [address] MONO ABS 0.60 K/CU MM Normal 0.1-1.1 [facility] Comment on above: Order Comment: Campu s: M Performed By: #### L 200.52754 #### [facility] [address] [place] [address] Monocytes/100 WBC (Bld) 8.4 % Normal 2-10 [facility] Comment on above: Order Comment: Campu s: M Performed By: #### L [id number] #### [facility] [address] [place] [address] NEUTROPHIL ABS 4.40 K/CU MM Normal 2.0-8.3 [facility] Comment on above: Order Comment: Campu s: M Performed By: #### L [id number] #### [facility] [address] [place] [address] Neutrophils/100 WBC (Bld) 59.2 % Normal 45-75 [facility] Comment on above: Order Comment: Campu s: M Performed By: #### L [id number] #### [facility] [address] [place] [address] Nucleated RBC/100 WBC (Bld) [Ratio] 0.0 % Normal Less than 1 [facility] Comment on above: Order Comment: Campu s: M Performed By: #### L [id number] #### [facility] [address] [place] [address] Platelet mean volume (Bld) [Entitic vol] 9.9 fL Normal 9.4-12.4 [facility] Comment on above: Order Comment: Campu s: M Performed By: #### L [id number] #### [facility] [address] [place] [address] PLT 261 K/CU MM Normal 150-450 [facility] Comment on above: Order Comment: Campu s: M Performed By: #### L [id number] #### [facility] [address] [place] [address] RBC 4.43 M/CU MM Normal 3.90-5.30 [facility] Comment on above: Order Comment: Campu s: M Performed By: #### L [id number] #### [facility] [address] [place] [address] WBC 7.3 K/CUMM Normal 4.5-11.0 [facility] Comment on above: Order Comment: Campu s: M Performed By: #### L [id number] #### [facility] [address] [place] [address] EKGon 11-24-2020 Electrocardiogram Procedure Date and Time: 11/24/20 0636 Test Reason : STAT Blood Pressure : / mmHG Vent. Rate : 053 BPM Atrial Rate : 053 BPM P-R Int : 146 ms QRS Dur : 088 ms QT Int : 454 ms P-R-T Axes : 046 020 074 degrees QTc Int : 426 ms Sinus bradycardia Anterior infarct , age undetermined Abnormal ECG No previous ECGs available Confirmed by MAME BAEZ MD ([id number]) on 11/24/2020 10:55:13 AM Referred By: Damian Escobar Confirmed By:MAME BAEZ MD Soni DDandT: 11/24/20 0636 TDandT: [facility] REC #: [id number] [place] [address] ADMIT DATE: DISCHARGE DATE: ATTENDING PHY: Damian Escobar MD ELECTROCARDIOGRAM REPORT CLB cc: [facility] PATIENT [facility]: [facility] MEDICAL REC #: [id number] [place] [address] ADMIT DATE: DISCHARGE DATE: ATTENDING PHY: Damian Escobar MD ELECTROCARDIOGRAM REPORT Normal [facility] GFR ESTon 11-24-2020 IF AMER Greater than 60 Normal [facility] Comment on above: Order Comment: Fahadu s: M Performed By: #### L 500.35209, L500.27674 #### [facility] [address] [place] [address] IF non-AFR AMER Greater than 60 Normal [facility] Comment on above: Order Comment: Campu s: M Performed By: #### L 500.60091, L500.02689 #### [facility] [address] [place] [address] OR.OPRPTon 11-24-2020 Operative Report Normal [facility] OR.OPRPT [facility] Patient Name: RACHEL NAVA [facility] Date of : [address] [place] [address] Unit Number: [id number] Operative Report Patient Status: REG [facility] Attending Doctor: Damian Escobar MD Service Date: 11/24/20 0849 Operative Report Procedure Date: 11/24/20 Attending Physician: Damian Escobar MD Procedure: Preoperative Diagnosis: PAD with distal aorta and bilateral iliac stenosis Postoperative Diagnosis: The same Procedure Type: 1. Ultrasound-guided access retrograde bilateral common femoral arteries. 2. Aortogram with bilateral iliofemoral angiogram. 3. 3 dilate bilateral common leg arteries with a 5 mm [place]. 4. Stent the right common iliac with a 7 x 37 express LD and stent the left common iliac with a 7 x 27 express LD. 5. Closure with Vascade Anesthesia: Sedation Complications: None Procedure Details: Patient brought to the operating room. Underwent appropriate consent. Underwent sedation. Prepped and draped in a sterile fashion. Did ultrasound-guided access retrograde bilateral common femoral arteries. Put 2 guidewires up and then 2 6 Brazilian sheath. We able to get the wire through the area of the severe stenosis. Did an aortogram showing subtotal occlusion right common iliac. Distal aorta moderate stenosis. And some mild/moderate plaque into the left common iliac artery. We predilated through both of these with a 5 x 4 [place] for over a minute and a half. Better flow noted after this. We then brought in a 7 x 37 express LD on the right and a 7 x 27 express LD on the left. We ballooned these right up to the origin slightly into the aorta. We then advanced the balloons up and balloon the distal aorta into the area of the iliac. Completion was much improved with better flow through this area. Some distal narrowing past the stent which we post ballooned the distal iliac with a 2 5 mm [place] for over a minute and a half. We did a retroinjection from the sheath and this was much better through there and also down the right side. We put into Vascade's and then removed the sheath and deployed a Vascade with good hemostasis. Brought to recovery stable condition. Sedation: This 70-year-old female underwent moderate sedation given by Dr. Damian Escobar. Was monitored EKG blood pressure and pulse ox for over the 30 minutes of the procedure. See the EMR for the complete record. Fluoroscopy: Fluoroscopy: 5.3 minutes Dose: 549 mGy Contrast dye: 25 cc Disclaimer This dictation was created using voice recognition software. Phonetic and/or minor grammatical errors may exist. eSign Date and Time Damian Escobar MD Verified/Reviewed by 11/24/20 0852 [facility] Vital Signs Date Time Vital Sign Value Performing Clinician Venitai mounika 01-06-2023 15:36-0500 Diastolic blood pressure 78 mm[Hg] [facility] 01-06-2023 15:36-0500 Heart rate 66 /min [facility] 01-06-2023 15:36-0500 Respiratory rate 18 /min [facility] 01-06-2023 15:36-0500 Systolic blood pressure 138 mm[Hg] [facility] 01-06-2023 13:20-0500 Body height 165.1 cm [facility] 01-06-2023 13:20-0500 Body mass index (BMI) [Ratio] 24.6 kg/m2 [facility] 01-06-2023 13:20-0500 Body temperature 97 [degF] [facility] 01-06-2023 13:20-0500 Body weight 67.13 kg [facility] 01-06-2023 13:20-0500 SaO2% (BldA) [Mass fraction] 97 % [facility] 12-16-2022 13:55-0400 Diastolic Blood Pressure Non-Invasive 48 1 DAMIAN ESCOBAR MD [facility] 12-16-2022 13:55-0400 Heart rate 52 /min DAMIAN ESCOBAR MD [facility] 12-16-2022 13:55-0400 Respiratory rate 16 /min DAMIAN ESCOBAR MD [facility] 12-16-2022 13:55-0400 Systolic Blood Pressure Non-Invasive 90 1 DAMIAN ESCOBAR MD [facility] 12-16-2022 13:28-0400 Diastolic Blood Pressure Non-Invasive 59 1 DAMIAN ESCOBAR MD [facility] 12-16-2022 13:28-0400 Heart rate 50 /min DAMIAN ESCOBAR MD [facility] 12-16-2022 13:28-0400 Respiratory rate 16 /min DAMIAN ESCOBAR MD [facility] 12-16-2022 13:28-0400 Systolic Blood Pressure Non-Invasive 96 1 ADMIAN ESCOBAR MD [facility] 12-16-2022 12:57-0400 Diastolic Blood Pressure Non-Invasive 55 1 DAMIAN ESCOBAR MD [facility] 12-16-2022 12:57-0400 Heart rate 54 /min DAMIAN ESCOBAR MD [facility] 12-16-2022 12:57-0400 Respiratory rate 16 /min DAMIAN ESCOBAR MD [facility] 12-16-2022 12:57-0400 Systolic Blood Pressure Non-Invasive 96 1 DAMIAN ESCOBAR MD [facility] 12-16-2022 10:55-0400 Heart rate 49 /min DAMIAN ESCOBAR MD [facility] 12-16-2022 10:50-0400 Heart rate 51 /min DAMIAN ESCOBAR MD [facility] 12-16-2022 10:45-0400 Heart rate 52 /min DAMIAN ESCOBAR MD [facility] 12-16-2022 07:39-0400 Body height 165.1 cm DAMIAN ESCOBAR MD [facility] 12-16-2022 07:39-0400 Body temperature 97.7 [degF] DAMIAN ESCOBAR MD [facility] 12-16-2022 07:39-0400 Body weight 24.91 kg/m2 DAMIAN ESCOBAR MD [facility] 12-16-2022 07:39-0400 Body weight 67.9 kg DAMIAN ESCOBAR MD [facility] 03-31-2022 01:01-0500 Diastolic blood pressure 55 mm[Hg] [facility] 03-31-2022 01:01-0500 Heart rate 49 /min [facility] 03-31-2022 01:01-0500 Respiratory rate 13 /min [facility] 03-31-2022 01:01-0500 SaO2% (BldA) [Mass fraction] 96 % [facility] 03-31-2022 01:01-0500 Systolic blood pressure 125 mm[Hg] [facility] 03-30-2022 21:07-0500 Body height 165.1 cm [facility] 03-30-2022 21:07-0500 Body mass index (BMI) [Ratio] 25.1 kg/m2 [facility] 03-30-2022 21:07-0500 Body temperature 98 [degF] [facility] 03-30-2022 21:07-0500 Body weight 68.49 kg [facility] Encounters Encounter Date Encounter Type Care Provider Facility Start: 10-16-2024 ambulatory Tea Fish [employer] Facilit y:[facility] Start: 06-10-2024 End: 06-10-2024 ambulatory TRACEY CASTILLO DO [facility] Start: 06-10-2024 End: 06-10-2024 Patient encounter procedure TRACEY CASTILLO DO [facility] [facility] Start: 02-01-2024 End: 02-05-2024 ambulatory TRACEY CASTILLO DO Facility:[facility] Start: 02-01-2024 End: 02-05-2024 Encounter for general adult medical examination without abnormal findings TRACEY CASTILLO DO Facility:[facility] Start: 02-01-2024 End: 02-05-2024 Outreach Lab TRACEY CASTILLO DO [facility] Start: 01-06-2023 End: 01-06-2023 Emergency department patient visit [facility] Work Phone: Start: 12-16-2022 End: 12-16-2022 ambulatory DAMIAN ESCOBAR MD Facility:A Start: 12-16-2022 End: 12-16-2022 SAME DAY STAY DAMIAN ESCOBAR MD [facility] Start: 11-07-2022 End: 11-08-2022 ambulatory DAMIAN ESCOBAR MD Facility:B Start: 11-07-2022 End: 11-07-2022 Patient encounter procedure DAMIAN ESCOBAR MD [facility] Start: 03-30-2022 End: 03-31-2022 Emergency department patient visit [facility] Start: 03-22-2022 End: 03-23-2022 ambulatory TRACEY CASTILLO DO Facility:B Start: 03-22-2022 End: 03-22-2022 Patient encounter procedure TRACEY CASTILLO DO [facility] Start: 10-19-2021 End: 10-19-2021 Patient encounter procedure DAMIAN ESCOBAR MD [facility] Start: 10-14-2021 End: 10-14-[address] JOSUÉ ROWLAND [facility] Start: 09-01-2021 End: 09-01-2021 Patient encounter procedure TRACEY CASTILLO DO [facility] Start: 03-16-2021 End: 03-20-2021 Outreach Lab LUZ MARINA FERGUSONMIRZA MANUFACTURER'S REPRESENTATIVE-[employer]IS[employer]ACER [facility] Procedures Date Procedure Procedure Detail Performing Clinician Start: 01-06-2023 CT angiography of he ad and neck Start: 03-30-2022 Plain chest X-ray Start: 10-19-2021 Arterial pressure in dex (observable entity) DAMIAN ESCOBAR MD Comment on above: No evidence of arter ial disease in a resting state of the right lower extremity. The resting MEHNAZ is 1.12. No evidence of arterial disease in a resting state of the left lower extremity. The resting MEHNAZ is 1.09. Start: 10-14-2021 Echocardiography DAMIAN ESCOBAR MD Comment on above: 1. Left ventricle: T he cavity size is normal. Wall thickness is mildly increased. Systolic function is normal. The estimated ejection fraction is 55-60%. Wall motion is normal; there are no regional wall motion abnormalities. Normal diastolic function. 2. Aortic valve: Thickening, consistent with sclerosis. 3. Mitral valve: The annulus is mildly calcified. There is mild, 1+ regurgitation. 4. Right ventricle: The RV systolic pressure by Doppler is 36 mm Hg. 5. Tricuspid valve: There is mild, 1+ regurgitation. Start: 11-24-2020 Ecg routine ecg w/le ast 12 lds i&r only Start: 08-15-2018 [address]res s testing DR JOSUÉ ROWLAND MD Start: 02-13-[address] Jabari ROWLAND MD Start: 07-22-2014 Cardi[address]res s testing DR JOSUÉ ROWLAND MD Start: 02-14-[address] SHI ROWLAND MD Comment on above: EF 65%, LA mildly en larged. Trivial MR, 1-2+TR, RVSP 26 mmHg Start: 09-14-2003 Coronary artery bypa ss grafts x 3 TRACEY CASTILLO DO Cholecystectomy LUZ MARINA CABRERA MANUFACTURER'S REPRESENTATIVE-[employer]IS[employer]ACER Coronary artery bypa ss grafts x 3 LUZ MARINA HARRISON MANUFACTURER'S REPRESENTATIVEThe Spirit Project History of coronary artery bypass grafting S/P CABG (coronary artery bypass graft) Hysterectomy LUZ MARINA HARRISON MANUFACTURER'S REPRESENTATIVE-[employer] Plan of Treatment Date Care Activity Detail Author Start: 01-06-2023 [facility] Start: 03-30-2022 End: 03-30-[address] [facility] Patient Education [facility] Work Phone: Patient referral [facility] Work Phone: Payers Date Payer Category Payer Self-pay [id number] 2021 Unknown [id number] 2010 Unknown [id number] 1950 Unknown [id number] 2.16.8 [id number] 1950 Unknown [id number] 2.16.8 [id number] 1950 Unknown [id number] 2.16.8 [id number] 1950 Unknown [id number] 2.16.8 [id number] 1950 Unknown [id number] 2.16.8 [id number] Medicare MEDICARE A ONLY [id number] Unknown [id number] 2.16.8 [id number] Social History Date Type Detail Facility Start: 08-20-2018 [facility] sm[facility]finding[facility] Start: 1950 Sex Assigned At Female A [facility] Start: 03-30-2022 End: 01-06-2023 Tobacco smoking status NHIS Unknown if ever smoked [facility] Start: 03-30-2022 Rare [facility] Start: 08-15-2018 None [facility] Start: 03-30-2022 Homeless [facility] Start: 03-30-2022 Non-smoker [facility] Sexual Orientation [facility] Start: 08-08-2018 Sex Female (finding) [facility] Functional Status Date Assessment Result Facility 12-16-2022 Functional Status Awake, Resting, Up ad vianca, Up to bathroom [facility] 12-16-2022 Functional Status [facility] 12-16-2022 Functional Status Patient Identi fied Identification band, Verbal [facility] 12-16-2022 Functional Status Room check performed [facility] Mental Status Date Assessment Result Facility 12-16-2022 Mental Status Orientation Orie nted x 4, Follows simple commands [facility] 12-16-2022 [facility] 12-16-2022 Mental Status [facility] 03-30-2022 Cognitive function Voice/Name [facility] Work Phone: Clinical Notes 03-16-2021 to 01-06-2023 Note Date & Type Note Facility 01-06-2023 Discharge summary Note Date/Time January 06, 2023 1:41pm [facility] Medical Records Department [address] [place] [address] Emergency Department Summary 01/06/23 MR#: [id number] Acct: [id number] Name: RACHEL NAVA Rep #:[id number] : 1950 72 From: [address] MD PCP: Dr. Tracey Castillo, DO Status:REG ER Location: ED HPI History of Present Illness Chief Complaint: Dizziness Informant: patient Onset/Context/Timing Onset: Weeks (2.5) Context: Sudden Onset Timing: Continuous Current Severity: Severe Maximum Severity: Severe Narrative Narrative: Patient has peripheral arterial disease in her legs, and about 2.5 weeks ago shehad balloon angioplasty of pre-existing stents in her groins. She states she has been having no issues with her legs ever since. However, the night of surgery she started having severe headache left occipital and down into the leftposterior neck along with vertiginous symptoms. She states specifically, when she woke up from surgery the symptoms were not there, they started later. The symptoms have been there ever since. States she saw her PCP, she was diagnosed with occipital neuralgia, prescribed carbamazepine, and referred to neurology with whom she has not seen yet. She states the symptoms are worsening and nothing is better. She denies any vision changes, nausea, vomiting, peripheral neurologic symptoms in arms or legs. She states getting up and walking makes her feel vertiginous, and turning her head also triggers and reproduces the symptoms, but the pain has been severe, it is not intermittent, and it seems to be worse when she moves her head. She has had no loss of consciousness. [facility] Medical History (Updated 01/06/23 @ 15:[address] MD) CAD (coronary artery disease) DVT (deep venous thrombosis) Dyslipidemia Hypothyroidism PAD (peripheral artery disease) Home Medications aspirin 81 mg chewable tablet 81 mg PO QHS heart health 07/08/14 [History Last Taken 09/25/15] atorvastatin 80 mg tablet 80 mg PO QHS cholesterol 08/15/18 [History Last Taken Unknown] carvedilol 6.25 mg tablet 3.125 mg (1/2 x 6.25 mg) PO BID ##0 08/16/18 [Rx Last Taken 09/25/15] levothyroxine 125 mcg tablet 125 mcg PO DAILY #30 tabs 08/16/18 [Rx Last Taken Unknown] clopidogrel 75 mg tablet 75 mg PO DAILY 03/30/22 [History Last Taken Unknown] isosorbide mononitrate 30 mg tablet,extended release 24 hr 30 mg PO DAILY 03/30/22 [History Last Taken Unknown] meclizine 25 mg tablet 25 mg PO Q8H PRN PRN Dizziness #20 tabs 01/06/23 [Rx Last Taken Unknown] metoclopramide HCl 10 mg tablet (Reglan) 10 mg PO Q6H PRN nausea or headache #15tabs 01/06/23 [Rx Last Taken Unknown] orphenadrine citrate 100 mg tablet,extended release 100 mg PO Q12H PRN muscle pain #12 tabs 01/06/23 [Rx Last Taken Unknown] tramadol 50 mg tablet 50 mg PO PRN 01/06/23 [History Last Taken Unknown] Allergy/AdvReac Type Severity Reaction Status Date / Time No Known Allergies Allergy Verified 01/06/23 13:22 Surgical History (Updated 01/06/23 @ 14:[address] MD) H/O: hysterectomy History of cardiac radiofrequency ablation History of coronary rotational ablation History of heart artery stent Hx of CABG S/P CABG (coronary artery bypass graft) S/P cholecystectomy Social History Smoking Status: Current every day smoker tobacco type: cigarettes ROS ROS ED Constitutional Constitutional ED: Denies chills or fever(s) Eyes Eyes: Denies change in vision or diplopia ENT ENT ED: Reports neck pain and vertigo; Denies hearing loss, rhinorrhea, sore throat or tinnitus Cardiovascular Cardiovascular: Denies chest pain or palpitations Respiratory/Chest Respiratory/Chest: Denies cough or dyspnea Gastrointestinal Gastrointestinal: Denies abdominal pain, diarrhea, nausea or vomiting Genitourinary Genitourinary ED: Denies dysuria or hematuria Musculoskeletal Musculoskeletal: Reports neck pain; Denies back pain Integumentary Denies abscess or rash Neurologic Neurologic: Reports headache(s) and vertigo; Denies paresthesias or weakness Psychiatric Psychiatric: Denies anxiety or suicidal thoughts EXAM Physical Exam Const Vital Signs: 01/06/23 13:20 Temperature 97 F L Temperature Source Temporal Pulse Rate 80 Respiratory Rate 18 Blood Pressure 118/76 Blood Pressure Mean 90 Pulse Ox 97 Positive well nourished and well developed General Appearance ED: well developed and NAD HEENT Reports TM's clear and moist mucous membranes HEENT Narrative: Tender throughout the left occipital scalp but not superficially, with palpationof the actual cranium in this area. Normal on inspection no palpable hematomas,masses. normocephalic and atraumatic Tympanic Membrane ED: Yes TM's clear Eyes PERRL and EOMs intact bilaterally Neck full ROM and supple Neck Narrative: No audible carotid bruit. No sternocleidomastoid tenderness. No mastoid process tenderness or periauricular lymphadenopathy. Tender left posterior neckparaspinal musculature, and more laterally in the posterior neck. No palpable lymphadenopathy. Resp normal respiratory effort and clear to auscultation bilaterally Cardio regular rate, regular rhythm and no murmurs GI non-tender and non-distended Auscultation: normoactive bowel sounds Palpation: soft Back/Spine no CVA tenderness General Back: other FROM Extremity normal to inspection General Extremety ED: Negative for edema, pulses abnormal or tenderness General Extremity: Negative for edema or pulses abnormal Neuro oriented x3, CN's II-XII intact bilaterally and no sensory deficits noted Neuro Narrative: Normal rmrebg-di-ondm and jsym-rg-njef bilaterally Sensorium / Orientation: awake and alert Motor Exam: strength 5/5 throughout Psych mental status grossly normal Skin no rashes or lesions noted and no wounds MDM MDM MDM Narrative Medical decision making narrative: Seems patient's head and neck pain have a musculoskeletal component, but she is also having vertigo seems more peripheral. There does not seem to be an obviouslink between the 2 of these and she states this started the same time. Given this I thought it was appropriate to obtain CT angiography of the head and neck in order to rule out a vascular etiology, subarachnoid hemorrhage, and mass. I reviewed the images and the report, basically negative for anything acute, thereis some arterial disease seen in the right internal carotid artery that is noncritical. Meanwhile patient was treated with meclizine morphine and prophylactic Zofran. As I discussed with the patient primary headache syndrome is in the differential here, oftentimes can be triggered by muscular neck pain. That may be going on here. Supportive care advised will offer her prescriptions, and follow-up as scheduled as well as with her PCP. On reevaluation, the morphine did not help much with her pain but the meclizine helped with her vertigo. Will give her Reglan and Norflex prior to discharge aswell as prescriptions for those 2 as well as meclizine. Lab Data Attestation: I reviewed the patient's lab results. Labs: Laboratory Results - last 24 hr 01/06/23 13:46 WBC 8.0 RBC 4.64 Hgb 14.6 Hct 42.6 MCV 91.8 MCH 31.5 MCHC 34.3 RDW Std Deviation 45.0 H RDW Coeff of Angela 13.2 Plt Count 296 MPV 9.8 Immature Gran % (Auto) 0.400 Neut % (Auto) 65.5 Lymph % (Auto) 25.2 Butte % (Auto) 6.0 Eos % (Auto) 2.0 Baso % (Auto) 0.9 Absolute Neuts (auto) 5.2 Absolute Lymphs (auto) 2.01 Nucleated RBC % 0 Sodium 136 Potassium 4.0 Chloride 107 Carbon Dioxide 23.0 Anion Gap 6 BUN 16 Creatinine 0.90 Estim Creat Clear Calc 50.84 Est GFR (MDRD) Af Amer 79 Est GFR (MDRD) Non-Af 66 BUN/Creatinine Ratio 17.8 Glucose 104 Calcium 9.3 Radiography Diagnostic Testing: Clinical Impression(s) from Imaging Studies Head/Neck CTA 01/06/23 13:35 IMPRESSION: No vaso-occlusive disease or significant stenosis within the intracranial circulation No aneurysm or vascular malformation Moderate calcified plaque in the proximal right ICA but no significant stenosis, stenosis estimated at 40% No significant stenosis in the left ICA Small right vertebral artery along its entire course Electronically Signed: Freddy Gallagher MD at 14:54 EST Reading Location ID and State: [address] [place] [address] , Service support , Discharge Plan Triage Chief Complaint: Dizziness ED Provider: Sagar St Dx/Rx/DC Orders Clinical Impression: Neck pain on left side, Cephalgia, Vertigo, peripheral Instructions: Understanding Headache Pain, ED Vertigo, Unspecified Prescriptions: New metoclopramide HCl [Reglan] 10 mg tablet 10 mg PO Q6H PRN (Reason: nausea or headache) Qty: 15 0RF orphenadrine citrate 100 mg tablet extended release 100 mg PO Q12H PRN (Reason: muscle pain) Qty: 12 0RF meclizine [meclizine] 25 mg tablet 25 mg PO Q8H PRN PRN (Reason: Dizziness) Qty: 20 0RF No Action aspirin 81 MG tablet,chewable 81 mg PO QHS atorvastatin 80 MG tablet 80 mg PO QHS levothyroxine 125 MCG tablet 125 mcg PO DAILY Qty: 30 0RF carvedilol 6.25 MG tablet 3.125 mg PO BID Qty: 0 0RF Rx Instructions: Hold if heart rate is less than 60/min isosorbide mononitrate 30 mg tablet extended release 24 hr 30 mg PO DAILY Patient Comments: TAKE 1 TABLET BY MOUTH EVERY MORNING clopidogrel 75 mg tablet 75 mg PO DAILY Patient Comments: TAKE 1 TABLET BY MOUTH EVERY DAY tramadol 50 mg tablet 50 mg PO PRN Primary Care Provider: Tracey Castillo Referrals: Tracey Castillo DO [Primary Care Provider] - 1 Week if not improving (and w/ neurology as previously referred) Disposition Disposition: Home, Self Care What to do if you have Problems For any increased pain, shortness of breath, bleeding, nausea or vomiting, chestpain, or any unexpected problems, contact your Primary Care Provider. Call [facility] ([phone]) or report to the closest Emergency Room. Call 911 if necessary. 01/06/23 1512 <Electronically signed by Sagar St MD> Cosigner Signature (if applicable): CC: Dr. Tracey Castillo, DO ~ Signed [facility] Work Phone: [phone]) 587-601311-03-2023 Hospital Discharge instructions Patient Education 12/16/2022 14:06:03 3- Peripheral angioplasty//stent 03/2019(CUSTOM) PERIPHERAL ANGIOPLASTY Discharge Instructions This information has been developed to provide you with written guidelines to supplement the verbalinstructions your doctor has reviewed with you. It is very important that you follow any additionalinstructions your doctor has provided. Home instructions: An adult must stay with you overnight. Relax for 24 hours, keeping legs elevated. Drink plenty of fluids to flush out your kidneys. Resume your regular diet. Benjamin a bandage on the insertion site for a day. Avoid strenuous exercise of lifting anything over 5 pounds for at least 3 days. Do not take a bath for at least 72 hours. Ypo may shower in [address] for 3 days Discomfort, swelling and bruising are expected at the incision site. Watch the groin area where thecatheter was inserted for such things as, but not limited to: redness, swelling, pus or red streaksrunning down the leg. If any concerns, notify our office at . If bleeding is noted through the bandage: Lie flat and apply pressure for 10 to 15 minutes. If the bleeding does not stop, or if your foot feels numb, cold or turns blue, go to the Emergency Department immediately. If you do not have an arranged appointment, please call the office upon discharge at and make an appointment to see the doctor in 2 weeks. If you have concern after regular office hours, you can reach the doctor by calling . Follow all instructions given to you by your doctor Follow Up Care 11/29/2022 09:59:05 With:DAMIAN ESCOBAR MD, [facility], Surgery, Vascular Surgeons Address: [facility] [address] [place] [phone] When: Unknown Comments:Follow-up as scheduled [facility] 11-03-2023 Summary of episode note Discharge Instructions Thank you for allowing [facility] to assist you with your healthcare needs. The following is importantdischarge information regarding your hospital visit. Your Care Team TRACEY CASTILLO DO What to do next Scheduled Follow-Up Appointments [facility]/20[facility] 02:00 PM EST TRACEY CASTILLO DO [facility] Follow Up Appointments Follow Up with DAMIAN ESCOBAR MD, [facility], Surgery, Vascular Surgeons When Why: Follow-up as scheduled Where: [facility] [address] [place] [phone] The Following Activity and Diet Have Been Ordered for You Discharge Activity - Ordered -- Follow the post-operative/post-procedure activity instructions provided by your physician's office., 12/16/22 11:13:00 EDT Discharge Diet - Ordered -- Follow the post-operative/post-procedure diet instructions provided by your physician's office.,12/16/22 11:13:00 EDT The Following Equipment Has Been Ordered for You Discharge Home Equipment Discharge Wound Care - Ordered -- Follow the post-operative/post-procedure wound care instructions provided by your physician's office., 12/16/22 11:13:00 EDT Someone Will Contact You Regarding These Home Health Referrals No home referrals have been ordered for you. No one will call you. Medications Please ask your primary doctor or pharmacist before taking any other medication not listed, including over the counter drugs, herbal medications, vitamins and or supplements as they may interact withyour home medications. What How Much When Why Instructions Last Dose Unchanged aspirin (aspirin 81 mg oral delayed releasetablet) 1 tab(s) by mouth Once a day Unchanged atorvastatin (atorvastatin 80 mg oral tablet) See instructions TAKE 1 TABLET EVERY DAY Unchanged carvedilol (carvedilol 3.125 mg oral tablet) 1 tab(s) by mouth Two (2) times a day Replaces previous prescription for carvedilol 6.25 mg Unchanged levothyroxine (levothyroxine 112 mcg (0.112 mg) oral tablet) 1 tab(s) by mouth Once a day Unchanged losartan (losartan 50 mg oral tablet) 1 tab(s) by mouth Once a day Essential hypertension Unchanged multivitamin (Multivitamin) 1 tab(s) by mouth Every day Unchanged nitroGLYcerin (nitroglycerin 0.4 mg sublingual tablet) 1 tab(s) under the tongue Every 5 minutes as needed for for chest pain CAD (coronary artery disease) not to exceed 3 doses/ 15 min--if pain persists, seek medical attention Please take this list to your next doctor s visit. Bring all medications you take, including over the counter medications, herbals and other supplements with you to your doctor s visit. Patients and families are reminded to discard old lists and to update any records with all medication providers or retail pharmacies. Education Materials PERIPHERAL ANGIOPLASTY Discharge Instructions This information has been developed to provide you with written guidelines to supplement the verbalinstructions your doctor has reviewed with you. It is very important that you follow any additionalinstructions your doctor has provided. Home instructions: An adult must stay with you overnight. Relax for 24 hours, keeping legs elevated. Drink plenty of fluids to flush out your kidneys. Resume your regular diet. Benjamin a bandage on the insertion site for a day. Avoid strenuous exercise of lifting anything over 5 pounds for at least 3 days. Do not take a bath for at least 72 hours. Ypo may shower in [address] for 3 days Discomfort, swelling and bruising are expected at the incision site. Watch the groin area where thecatheter was inserted for such things as, but not limited to: redness, swelling, pus or red streaksrunning down the leg. If any concerns, notify our office at . If bleeding is noted through the bandage: Lie flat and apply pressure for 10 to 15 minutes. If the bleeding does not stop, or if your foot feels numb, cold or turns blue, go to the Emergency Department immediately. If you do not have an arranged appointment, please call the office upon discharge at and make an appointment to see the doctor in 2 weeks. If you have concern after regular office hours, you can reach the doctor by calling . Follow all instructions given to you by your doctor Additional Information VACCINATE! IT SAVES LIVES! Members of the community who have not yet received the COVID-19 vaccine and would like to receive it can visit one of [facility] vaccine clinics. There are many vaccine clinic locations within the [facility]. For locations and available times, please visit [email or web address].coronavirus.[place].gov/. It is important to note that some COVID mobile vaccine clinics are held outdoors and may be canceled in rainy or stormy conditions. To learn more about pediatric vaccinations (ages 5-11), we invite you to visit the [employer] webpage. [email or web address]/[email or web address] learn more about the COVID-19 vaccine, we invite you to visit the CDC website for a list of frequently asked questions.https://www.cdc.gov/coronavirus/2019-ncov/vaccines/faq.html [facility] Patient Portal Access Instructions: Stay connected with your healthcare team and access your personal medical information anytime with the [facility] Patient Portal. Please follow the directions below to create your [facility] account: 1.Access the email account you provided upon registration to the hospital/physician office.2.Look for an invitation email from [facility].3.Open the email and access the invitation link: AcceptInvitation to [facility].4.Fill in the required bear to create your account. To access your account, visit [email or web address]. Click the blue button labeled Access Patient Portal and then log in with the username and password that you created in the steps above. You will be able to view your test results, lab results, a summary of your visits, upcoming appointments and more. There is also a convenient messaging option where you can send secure messages to your p rovider. In addition, you will have the ability to download any documents or summaries to your computer and/or send the information securely to a physician. Remember that your healthcare information is confidential, so carefully consider who you will allowto register on the [facility] [facility] Patient Portal for access to your information. You can also access [facility] on the [place] [employer] [facility]. Simply click on Patient Portal and then log into your account. If you would like to receive a full copy of your medical records, please contact the [facility] Medical Records Department by calling [phone], Monday through Monday between 8 a.m. and 4:30 p.m. HOW TO SAFELY DISPOSE OF PRESCRIPTION MEDICATIONS Please use one of the following methods to safely dispose of your unused medications. 1.Use a drug disposal kit: the drug disposal pouch allows you to safely discard your old and unuseddrugs. Ask your nurse to give you one when you are discharged.2.Visit a local take-back location: Many local pharmacies and police departments have programs that collect old and unwanted prescriptiondrugs. Call your local pharmacy or go to http://Bueroservice24/9E6Xw9z to find one close to you.3.Make use of household items: Use cat litter or old coffee grounds to dispose medications if other options arenot available. Mix your drugs with these household products, seal them in an airtight container andthrow it into the garbage. Call [facility]: [phone] to be sure your drugs can be disposed of in this way. Some medicines may require a different approach.4.Never flush your medications down the toilet. IF YOU HAVE BEEN PRESCRIBED AN OPIOID FOR PAIN If you have been prescribed an opioid (such as hydrocodone, oxycodone or morphine), it is critical to understand the possible side effects and risks of opioid pain medications. Even when taken as directed, opioids can have several side effects including: Tolerance, meaning you might need to take more of a medication for the same pain relief. Nausea, vomiting and/or constipation. Sleepiness, dizziness, dry mouth, confusion, depression or itching. Physical dependence, meaning you have withdrawal symptoms when a medication is stopped, can develop within a few days. KNOW YOUR RESPONSIBILITIES It is important to know exactly how much and how often to take the opioid pain medications you are prescribed. Never take opioids in higher amounts or more often than prescribed. Do not combine opioids with alcohol or other drugs that cause drowsiness, such as benzodiazepines, also known as benzos, including diazepam and alprazolam, muscle relaxants or sleep aids. Never sell or share prescription opioids. This is illegal. Store opioids in a secure place and out of reach of others (including children, family, friends and visitors). The last page of this document has been signed and retained as a CHART COPY. Signatures Patient Education Materials 3- Peripheral angioplasty//stent 03/2019(CUSTOM) Medication Leaflets My discharge plan and instructions have been reviewed and explained to me and IBRANDY PHYLLIS Kunderstand my current condition and have read and understand these discharge instructions. I have received a written copy of the plan/instructions. If I have questions, I am aware that I should contact my doctor. 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: Date/Time: Relationship to Patient: Witness Name/Signature: Date/Time[id number] Note ORIGINAL Images acquired, not reported on this accession number.[facility] 03-16-2021 Evaluation + Plan note Future Scheduled Tests Radiology* CT Abdomen and Pelvis w/ contrast 03/16/21 [facility] Evaluation + Plan note Future Appointments Appointment Date:09/21/2021 09:30:00 AM Scheduled Provider: Location:[facility]OURA[facility] Appointment Type:CV OV Appointment Date:02/23/2022 01:30:00 PM Scheduled Provider:TRACEY CASTILLO DO Location:[facility] Appointment Type:PC OV Future Scheduled Tests Laboratory* Microalbumin Level Urine 08/31/21 Radiology* CT Abdomen and Pelvis w/ contrast 03/16/21 [facility] Evaluation + Plan note Future Appointments Appointment Date:10/19/2021 09:00:00 AM Scheduled Provider: Location:[facility] Appointment Type: AO - Aorta US/Doppler (for aneurysm) Appointment Date:10/19/2021 10:00:00 AM Scheduled Provider: Location:[facility] Appointment Type:[facility] - ABIs (ankles only) Appointment Date:11/23/2021 11:30:00 AM Scheduled Provider: Location:CT Appointment Type:CT Coronary Angiography w+w/o Contrast Appointment Date:02/23/2022 01:30:00 PM Scheduled Provider:TRACEY CASTILLO DO Location:[facility] Appointment Type:PC OV Future Scheduled Tests Laboratory* Microalbumin Level Urine 08/31/21 Radiology* CT Abdomen and Pelvis w/ contrast 03/16/21 * CT Coronary Angiography w+w/o Contrast 11/23/21 [facility] ProofPilotaluation + Plan note Future Appointments Appointment Date:11/23/2021 11:30:00 AM Scheduled Provider: Location:CT Appointment Type:CT Coronary Angiography w+w/o Contrast Appointment Date:02/23/2022 01:30:00 PM Scheduled Provider:TRACEY CASTILLO DO Location:[facility] Appointment Type:PC OV Future Scheduled Tests Laboratory* Microalbumin Level Urine 08/31/21 Radiology* CT Abdomen and Pelvis w/ contrast 03/16/21 * CT Coronary Angiography w+w/o Contrast 11/23/21 [facility] Evaluation + Plan note Future Appointments Appointment Date:09/14/2022 02:00:00 PM Scheduled Provider:TRACEY CASTILLO DO Location:[facility] Appointment Type:PC OV Future Scheduled Tests Laboratory* Microalbumin Level Urine 08/31/21 Radiology* CT Coronary Angiography w+w/o Contrast 11/23/21 [facility] ProofPilotaluation + Plan note Future Appointments Appointment Date:12/05/2022 01:30:00 PM Scheduled Provider:TRACEY CASTILLO DO Location:[facility] Appointment Type:PC OV Future Scheduled Tests Radiology* CT Coronary Angiography w+w/o Contrast 11/23/21 [facility] Evaluation + Plan note Future Appointments Appointment Date:12/20/2022 02:00:00 PM Scheduled Provider:TRACEY CASTILLO DO Location:[facility] Appointment Type:PC OV [facility] Evaluation + Plan note Future Appointments Appointment Date:06/03/2024 01:30:00 PM Scheduled Provider:TRACEY CASTILLO DO Location:[facility] Appointment Type:PC OV Future Scheduled Tests Laboratory* Albumin/Creatinine Ratio, Random Urine 12/04/23 [facility] Evaluation + Plan note Future Appointments Appointment Date:12/03/2024 01:30:00 PM Scheduled Provider:MARY ESPINOSA DO Location:[facility] Appointment Type:PC OV Future Scheduled Tests Laboratory* Albumin/Creatinine Ratio, Random Urine 12/04/23 [facility] Evaluation noteNo assessment information available [facility] Work Phone: Hospital course Narrative No data available for this section [facility] Discharge instructions No data available for this section [facility] Progress note No data available for this section [facility] Summary Purpose Family History No Family History Records Found Relationship Condition Age at Onset Recorded Date/T herlinda Unknown Family History?- Unknown October 192015 6:24pm Family History?- Unknown October 192015 6:24pm Family History?Cancer, - Unknown Oct 6:24pm Advance Directives No Advanced Directives Records Found Advance Directive Response Recorded Date/ Time Advance Directives No September 25, 2015 11:37pm Living Will No March 30, 2 023 10:15pm Power of Investment Underwriter No March 30, 2022 10:15pm Advance Directive Response Recorded Date/ Time Advance Directives No September 25, 2015 11:37pm Living Will No January 06, 2 023 1:28pm Power of Investment Underwriter No January 06, 2023 1:28pm Chief Complaint and Reason for Visit Chief Complaint CHEST PAIN Chief Complaint DIZZINESS Additional Source Comments INFORMATION SOURCE (unrecogn ized section and content) DATE CREATED AUTHOR 12/03/2020 [facility] payal Carter DATE CREATED AUTHOR AUTHOR'S ORGANIZ ATION 12/22/2022 [facility] ([place]) DATE CREATED AUTHOR AUTHOR'S ORGANIZ ATION 06/13/2024 [facility] DATE CREATED AUTHOR AUTHOR'S ORGANIZ ATION 10/11/2024 [facility] Care Team (unrecognized sect ion and content) Care Team Personnel Name: BOLA BANKS MD Position: P4 Physician - General Surgery Med Service: [facility] Pain Management Member Role: Pain Management Address: Address: [address] [place] [address] Pain Management [place], [place] [id number] [place] [address] Name: TRACEY CASTILLO DO Position: P4 Physician - Primary Care Med Service: Active Provider Member Role: Primary Care Physician Address: Address: [address] [place] [phone] [place] [address] Care Team Related Persons Name: BOLA NAVA Address: Home [address] [place], [place] [id number] Care Team Personnel Name: BOLA BANKS MD Position: P4 Physician - General Surgery Address: Address: [address] [place] [address] [place], [place] [phone] [place] [address] Name: TRACEY CASTILLO DO Position: P4 Physician - Primary Care Member Role: Primary Care Physician Address: Address: [address] [place] [phone] [place] [address] Care Team Related Persons Name: BOLA NAVA Address: Home [address] [place], [place] [id number] Care Team Personnel Name: BOLA BANKS MD Position: P4 Physician - General Surgery Med Service: [facility] Pain Management Member Role: Pain Management Address: Address: [address] [place] [address] Pain Management [place], [place] [phone] [place] [address] Name: TRACEY CASTILLO DO Position: P4 Physician - Primary Care Med Service: Active Provider Member Role: Primary Care Physician Address: Address: [address] [place] [address] [facility] [place], [place] [address] Care Team Related Persons Name: BOLA NAVA Address: Home [address] [facility], [place] [id number] Care Team Personnel Name: BOLA BANKS MD Member Role: Pain Management Address: Address: [address] [place] [address] [address] [facility] Pain Management [place], [place] [address] Name: TRACEY CASTILLO DO Position: P4 Physician - Primary Care Member Role: Primary Care Physician Address: Address: [address] [place] [phone] [place] Care Team Related Persons Name: BOLA NAVA Address: Home [address] [facility], [place] [phone] Care Teams (unrecognized sec tion and content) Team Status: Active Member Role Status Dates Dr. Tracey Castillo DO Family Provider Active Dr. Tracey Castillo DO Primary Care Provider Active Team Status: Inactive Member Role Status Dates Dr. Tracey Castillo DO Primary Care Provider Active Dr. Gregor Boss DO Emergency Provider Active Team Status: Inactive Member Role Status Dates Dr. Tracey Castillo DO Primary Care Provider Active Dr. Sagar [address] MD Emergency Provider Active Goals (unrecognized section and content) Goals may be documented in a n alternate section FOR RECORDS PERTAINING TO PATIENTS WHO ARE OR HAVE BEEN ENROLLED IN A CHEMICAL DEPENDENCY/SUBSTANCEABUSE PROGRAM, SOME INFORMATION MAY BE OMITTED. This clinical summary was aggregated from multiple sources. Caution should be exercised in using it in the provision of clinical care. This summary normalizes information from multiple sources, and as a consequence, information in this document may materially change the coding, format and clinical context of patient data. In addition, data may be omitted in some cases. CLINICAL DECISIONS SHOULD BE BASED ON THE PRIMARY CLINICAL RECORDS. [facility] [employer] provides no warranty or guarantee of the accuracy or completeness of information in this document.
--- NOTE | 2024-10-16 11:54 | STRESSREP_ITS ---
Stress Test Report Date: 10/16/2024 Procedure: Pharmacologic stress nuclear imaging study Indications: Chest pain/coronary artery disease Consent: Per the patient Procedure: The patient underwent pharmacologic (Regadenoson 0.4mg ) evaluation with a peak heart rate of 84 beats per minute (57%predicted maximal heart rate) and a peak blood pressure of 118/82 mmHg. The baseline ECG demonstrated sinus rhythm. The peak pharmacologic ECG no ischemic changes. There were no cardiac dysrhythmias pretest, during pharmacologic infusion, or recovery. There was no complaint of chest discomfort during pharmacologic infusion or recovery. The patient was injected with 11.8 millicuries of technetium 99m Cardiolite and subsequently rest SPECT Cardiolite nuclear imaging was obtained in the horizontal long, vertical long, and short axis views. The patient underwent pharmacologic (Regadenoson) evaluation. The patient was injected with 34.5 millicuries of technetium 99m Cardiolite and subsequently stress SPECT Cardiolite nuclear imaging was obtained in the horizontal long, vertical long, and short axis views. A gated Cardiolite study at peak stress was obtained. The examination was stopped secondary to completion of protocol. Rest and stress SPECT Cardiolite nuclear imaging status post realignment, normalization, and attenuation correction demonstrate no fixed or reversible perfusion defects. There is end systolic thickening and brightening. The gated Cardiolite study demonstrates myocardial thickening and inward wall motion. The reported LVEF is 78%. Impression: 1. Pharmacologic (Regadenoson) evaluation 2. Peak pharmacologic ECG with no diagnostic ischemic changes. 3. There were no cardiac dysrhythmias pretest, during pharmacologic infusion, or recovery. 5. Rest and stress SPECT Cardiolite nuclear imaging demonstrate relative uniform tracer uptake and myocardial perfusion appearing within normal limits. 6. The gated Cardiolite study reports an LVEF of 78%. This note was generated with [employer] software. It may contain incorrect words, spelling, and punctuation that were not noted in checking the note before signing.
== END | disposition home or self-care (01) ==
PROVIDERS: Referring Provider Nurse Practitioner Family; Visit Provider Nurse Practitioner Family
DX: R07.9 Chest pain, unspecified (principal); R42 Dizziness and giddiness; I95.9 Hypotension, unspecified; I25.10 Atherosclerotic heart disease of native coronary artery without angina pectoris; I73.9 Peripheral vascular disease, unspecified
CPT/HCPCS: 78452; 93017; A9500; A4216; J2785